=== PATIENT | male | born 1975 ===

== ENCOUNTER 2020-07-12 13:32 | Outpatient (REF) | payer OTHER, SELFPAY ==
[2020-07-12 15:33] LABS: Influenza A PCR NEGATIVE (Negative); Influenza B PCR NEGATIVE (Negative); Resp Syncy Virus RNA Qual PCR NEGATIVE (Negative); SARS COV2 PCR INHOUSE NEGATIVE (Negative)
== END 2020-07-12 13:33 | disposition home or self-care (01) ==
LOC: HO.LAB 13:32
PROVIDERS: Visit Provider Nurse Practitioner Family
DX: Z20.828 Contact with and (suspected) exposure to other viral communicable diseases (principal)
CPT/HCPCS: 0241U

== ENCOUNTER 2020-07-12 13:33 | Outpatient (REF) | payer OTHER, SELFPAY ==
--- NOTE | 2020-07-12 13:37 | XR_ITS ---
EXAMINATION: XR CHEST CLINICAL INFORMATION: Chest pain COMPARISON: 04/20/2020 TECHNIQUE: 2 views of the chest were obtained. FINDINGS: The lungs are well expanded. There is no focal consolidation, edema, or effusion. No pneumothorax. The cardiomediastinal silhouette is within normal limits. No acute osseous abnormality. XR/XR chest 2V IMPRESSION: Clear lungs.
== END 2020-07-12 13:34 | disposition home or self-care (01) ==
LOC: HO.HMGCX 13:33
PROVIDERS: PCP Nurse Practitioner Family; Visit Provider Nurse Practitioner Family
DX: R79.89 Other specified abnormal findings of blood chemistry (principal)
CPT/HCPCS: 71046

== ENCOUNTER 2020-07-20 08:41 | Outpatient (REF) | payer OTHER, SELFPAY ==
--- NOTE | 2020-07-20 08:47 | XR_ITS ---
EXAMINATION: XR BILATERAL FINGERS CLINICAL INFORMATION: Pain bilateral fingers/thumb. COMPARISON: None TECHNIQUE: 3 views each thumb. FINDINGS: RIGHT FINGERS: There is mild reduction in the PIP joint space with periarticular spurring right 1st digit. No fracture, dislocation, loose bodies or soft tissue swelling seen. Minimal loss of PIP and DIP joint space seen in 2nd through 4th digit. The soft tissues are normal. LEFT FINGERS: There is mild reduction in the PIP joint space 1st digit with periarticular minimal spurring. No bony erosive changes, loose bodies seen. There is loss of 1st carpometacarpal joint space with moderate periarticular spurring. Mild loss of PIP and DIP joint space 2nd through 5th digits is noted. XR/XR finger LT min 2V IMPRESSION: Degenerative arthritic changes PIP and DIP joints of all digits. There is periarticular spurring PIP joints 1st digits of both hands. No acute fracture or dislocation in either hand. No soft tissue swelling.
--- NOTE | 2020-07-20 08:47 | XR_ITS ---
EXAMINATION: XR BILATERAL FINGERS CLINICAL INFORMATION: Pain bilateral fingers/thumb. COMPARISON: None TECHNIQUE: 3 views each thumb. FINDINGS: RIGHT FINGERS: There is mild reduction in the PIP joint space with periarticular spurring right 1st digit. No fracture, dislocation, loose bodies or soft tissue swelling seen. Minimal loss of PIP and DIP joint space seen in 2nd through 4th digit. The soft tissues are normal. LEFT FINGERS: There is mild reduction in the PIP joint space 1st digit with periarticular minimal spurring. No bony erosive changes, loose bodies seen. There is loss of 1st carpometacarpal joint space with moderate periarticular spurring. Mild loss of PIP and DIP joint space 2nd through 5th digits is noted. XR/XR finger RT min 2V IMPRESSION: Degenerative arthritic changes PIP and DIP joints of all digits. There is periarticular spurring PIP joints 1st digits of both hands. No acute fracture or dislocation in either hand. No soft tissue swelling.
== END 2020-07-20 08:42 | disposition home or self-care (01) ==
LOC: HO.HMGCX 08:41
PROVIDERS: PCP Nurse Practitioner Family; Visit Provider Nurse Practitioner Family
DX: M79.644 Pain in right finger(s) (principal); M79.645 Pain in left finger(s)
CPT/HCPCS: 73140

== ENCOUNTER → 2020-11-24 15:09 | Outpatient (BNVA) | payer OTHER, SELFPAY | PROVIDERS: PCP Nurse Practitioner Family; Visit Provider Urology ==

== ENCOUNTER 2020-11-29 07:26 | Day surgery (SDC) | payer OTHER, SELFPAY ==
--- NOTE | 2020-11-26 13:30 | P.CONAN_ITS ---
Documented by User: Yesica Kirk 11/26/20 13:31 HPI - Anesthesia Eval Consult details Narrative: 45yo M for Circumcision PMFSH Active Problems Active Problems: All Active Problems (Updated 11/25/20 @ 09:17 by Valeriano Rodriguez MD) Genital warts (Acute) Penile lesion (Acute) Physical exam (Acute) Carpal tunnel syndrome (Acute) Osteoarthritis (Acute) Bilateral hand numbness (Acute) Bilateral thumb pain (Acute) Peritonsillar abscess determined by examination (Acute) Chest tightness (Acute) Past Medical History Medical History Bilateral hand numbness Dyslipidemia GERD (gastroesophageal reflux disease) Hx of gout Hypertension Osteoarthritis Sleep apnea Family History Family History Father No problems noted. Mother HTN (hypertension) Diabetes mellitus Maternal Grandmother Myocardial infarction Surgical History Surgical History History of appendectomy Hx of colonoscopy Social History Social History Alcohol intake: current Alcohol intake frequency: a few times a week Smoking Status: Former smoker Smoking Quit Date: 2019 Use of substances other than those prescribed or required for medical reasons: No Are you DNR?: No Advance Directives: No Advance Directives Information Provided: Yes Meds Allergies Allergy/AdvReac Type Severity Reaction Status Date / Time No Known Allergies Allergy Verified 11/29/20 08:22 Home Medications Medication Instructions Recorded Confirmed Last Taken Type albuterol sulfate 90 mcg/actuation 2 puff INHALATION Q6H PRN 09/22/20 09/22/20 Unknown History aerosol inhaler amlodipine 5 mg tablet 5 mg PO DAILY 09/22/20 09/22/20 Unknown History cetirizine 10 mg tablet 10 mg PO DAILY PRN 09/22/20 09/22/20 Unknown History Exam Exam Date and Time: November 26, 2020 1330 Assessment and Plan Assessment Anesthesia Assessment: Chart Reviewed Documented by User: Kely Moyer 11/29/20 09:23 [facility] Past Medical History Medical History Bilateral hand numbness Dyslipidemia GERD (gastroesophageal reflux disease) Hx of gout Hypertension Osteoarthritis Sleep apnea Family History Family History Father No problems noted. Mother HTN (hypertension) Diabetes mellitus Maternal Grandmother Myocardial infarction Surgical History Surgical History History of appendectomy Hx of colonoscopy Social History Social History Alcohol intake: current Alcohol intake frequency: a few times a week Smoking Status: Former smoker Smoking Quit Date: 2019 Use of substances other than those prescribed or required for medical reasons: No Are you DNR?: No Advance Directives: No Advance Directives Information Provided: Yes Meds Allergies Allergy/AdvReac Type Severity Reaction Status Date / Time No Known Allergies Allergy Verified 11/29/20 08:22 Home Medications Medication Instructions Recorded Confirmed Last Taken Type albuterol sulfate 90 mcg/actuation 2 puff INHALATION Q6H PRN 09/22/20 09/22/20 Unknown History aerosol inhaler amlodipine 5 mg tablet 5 mg PO DAILY 09/22/20 09/22/20 Unknown History cetirizine 10 mg tablet 10 mg PO DAILY PRN 09/22/20 09/22/20 Unknown History Exam Airway Mallampati Class: III (Full park large neck) TM Dist: >3cm Neck ROM: Limited Loose/Missing/Broken Teeth: No Heart: RRR Lungs: CTA Assessment and Plan Assessment Anesthesia Assessment: Anesthesia Plan Discussed and Chart Reviewed Final Anesthetic Review NPO: Yes ASA Class: III Final Preanesthetic Review: Meds/Allgs Chart Reviewed, Consent Obtained/Reviewed and Anes Risks/Benef Reviewed Patient Risk: Intermediate Procedure Risk: Low Anesthetic Plan Anesthetic Plan: MAC: Disposition: Standard PACU
[2020-11-29 08:24] VITALS: BP 132/86; PULSE 90; RESP 18; TEMP 36.6; O2SAT 93; BMI 48.6
[2020-11-29] MEDS: Lactated Ringers 1,000 ML 100 ML IVCONT (08:45)
--- NOTE | 2020-11-29 09:16 | MHC.SHP ---
Pre-Procedural Eval Section A The patient is an INPATIENT: No Changes since office visit: No Cold of Flu in the past 2 weeks, No New Medical Problems, No Changes in Medication and No Patient answered all questions The History & Physical has been completed within 30 days and I have reviewed it.: Yes Section B Chief Complaint: anogenital warts Allergies: Allergies Allergy/AdvReac Type Severity Reaction Status Date / Time No Known Allergies Allergy Verified 11/29/20 08:22 Plan Diagnosis/Plan: Unchanged (circumcision) I have reviewed the history and physical and performed a pertinent physical examination on my patient. No changes have occurred unless specified.
[2020-11-29 10:40] VITALS: BP 125/66; PULSE 75; RESP 18; TEMP 36.4; O2SAT 100
[2020-11-29 10:45] VITALS: BP 123/73; PULSE 71; RESP 18; O2SAT 98
[2020-11-29 10:50] VITALS: BP 121/70; PULSE 71; RESP 18; O2SAT 97
[2020-11-29 10:55] VITALS: BP 107/80; PULSE 74; RESP 18; O2SAT 98
--- NOTE | 2020-11-29 10:58 | W.PM.OPN ---
Operative Note Operative Note Date of Service: 11/29/20 Narrative: PreOperative Diagnosis: Genital warts and phimosis Post Operative Diagnosis: Genital warts and phimosis Procedure: Circumcision Surgeon: Dr Valeriano Rodriguez Anesthesia: Sedation with local anesthetic Indications for procedure: Recurring genital warts with inability to withdrawal foreskin of penile glans. Risks and benefits including bleeding, scarring, need for revision surgery been discussed. Procedure: After informed consent was verified the patient was brought to the operating room and placed in a supine position. Anesthesia was administered per protocol - sedation. The patient was prepped and draped sterile fashion. Safety pause time-out was performed. Antibiotics have been given. The penis was examined and proximal incision marked that lay just proximal to the resting position of the penile sulcus. This was followed around the circumference of the penis. A penile ring block was performed using 1% lidocaine with no epinephrine. Approximately 20 cc. The proximal incision was developed with sharp blade running circumferentially around the penis. The skin was to give a 1 cm separation between the foreskin in the remaining penile shaft skin. The foreskin was withdrawn and the penile glans exposed. A a distal incision was made approximately 5 mm proximal to the penile sulcus. At the area of the frenulum care was taken to empty the penile frenulum intact. Using clamps the dorsal skin was elevated. Using Metzenbaum scissors the avascular plane was entered and proximal and distal incision were joined. The bridging skin was elevated and clamped. It was then divided using Bovie. The sleeve of tissue was then removed circumferentially around the penis using cautery in order to minimize bleeding. The shaft was then examined in any bleeding areas were controlled. More local anesthetic was injected into the plane beneath avascular plane to help with postprocedure pain management. The skin edges after they were appropriately examined low reapposed. A 3-0 chromic suture was placed at 12:00 o'clock and 06:00 o'clock positions. Interrupted 3-0 was then placed the 09:00 o'clock and 3 o'clock position. Each quadrant was then filled with 3 sutures using 4-0 chromic. At the completion of the procedure there was adequate hemostasis. The incision was washed and dried. Antibiotic cream was applied to the incision. A Terri wrap was applied followed by a Coban dressing. Xeroform gauze had been used to cover antibiotic ointment. He tolerated the procedure well and was extubated in the room and transferred in stable condition to the recovery area. Pathology: Foreskin Drains: none
[2020-11-29 11:15] VITALS: BP 127/78; PULSE 76; RESP 18; O2SAT 97
--- NOTE | 2020-11-29 11:23 | PC.NURSE ---
1118 IV DC #20 TIP INTACT PRESSURE AND DRESSING TO R HAND IV SITE
== END 2020-11-29 11:45 | disposition home or self-care (01) ==
PROVIDERS: PCP Nurse Practitioner Family; Visit Provider Urology
PROC: (CPT 54161; principal; 2020-11-29 09:10)
DX: A63.0 Anogenital (venereal) warts (principal); N47.1 Phimosis; I10 Essential (primary) hypertension; Z87.891 Personal history of nicotine dependence
CPT/HCPCS: 54161; 88304; J0690; J2250; J3010

== ENCOUNTER 2020-12-03 09:51 | Outpatient (REF) | payer OTHER, SELFPAY ==
[2020-12-03 12:24] LABS: Alanine Aminotransferase 43 U/L (0-40); Albumin Level 4.3 g/dL (3.5-5.0); Alkaline Phosphatase 75 U/L (39-117); Anion Gap 14 (12-20); Aspartate Amino Transferase 24 U/L (5-37); Bilirubin Total 0.9 mg/dL (0.0-1.0); Blood Urea Nitrogen 14 mg/dL (9-16); Calcium 9.6 mg/dL (8.4-10.2); Carbon Dioxide 27 mmol/L (22-29); Chloride 103 mmol/L (96-108); Cholesterol 180 mg/dL; Estimated Glomerular Filt Rate > 60; Glucose Fasting 105 mg/dL (60-99); HDL Cholesterol 48 mg/dL; LDL Cholesterol Calculated 113 mg/dl; Potassium 4.3 mmol/L (3.3-5.1); Sodium 140 mmol/L (135-145); Total Protein 7.7 g/dL (6.5-8.0); Triglycerides 98 mg/dL
== END 2020-12-03 09:52 | disposition home or self-care (01) ==
LOC: HO.HMGCLDS 09:51
PROVIDERS: PCP Nurse Practitioner Family; Visit Provider Nurse Practitioner Family
DX: Z00.00 Encounter for general adult medical examination without abnormal findings (principal)
CPT/HCPCS: 36415; 80053; 80061; 84443

== ENCOUNTER → 2021-01-04 15:17 | Outpatient (BNVA) | payer OTHER, SELFPAY | PROVIDERS: PCP Nurse Practitioner Family; Visit Provider Urology ==

== ENCOUNTER 2021-06-13 11:40 | Outpatient (REF) | payer OTHER, SELFPAY ==
[2021-06-13 13:02] LABS: Influenza A PCR NEGATIVE (Negative); Influenza B PCR NEGATIVE (Negative); Resp Syncy Virus RNA Qual PCR NEGATIVE (Negative); SARS COV2 PCR INHOUSE POSITIVE (Negative)
== END 2021-06-13 11:41 | disposition home or self-care (01) ==
LOC: HO.LNP 11:40
PROVIDERS: Visit Provider Physician Assistant Medical
DX: J06.9 Acute upper respiratory infection, unspecified (principal); Z20.822 Contact with and (suspected) exposure to COVID-19
CPT/HCPCS: 0241U

== ENCOUNTER 2021-06-14 16:49 | Outpatient (REF) | payer OTHER, SELFPAY | END 2021-06-14 16:50 | disposition home or self-care (01) | LOC: HO.LNP 16:49 | PROVIDERS: Visit Provider Physician Assistant Medical | DX: J06.9 Acute upper respiratory infection, unspecified (principal) | CPT/HCPCS: 87071 ==

== ENCOUNTER 2022-09-22 07:15 | Outpatient (REF) | payer OTHER, SELFPAY ==
--- NOTE | ~2022-09-22 | XR_ITS ---
EXAMINATION: XR LUMBOSACRAL SPINE CLINICAL INFORMATION: Lower back pain. COMPARISON: Report of lumbar spine radiographs dated 03/23/2006. TECHNIQUE: AP and lateral views of the lumbar spine and lateral view of the lumbosacral junction. FINDINGS: There are mild T12 and L1 anterior wedge compression fractures. Vertebral body heights are otherwise unremarkable. At L4-L5, there is a 4 mm anterolisthesis. There is moderate posterior disc space narrowing at L5-S1. No acute fracture or spondylolisthesis is seen. There is multi-level spondylosis, particularly marked at T11-T12 through L1-L2 and at L5-S1. There is multi-level facet arthropathy, most pronounced at L4-L5 and L5-S1. The paravertebral soft tissues are unremarkable. XR/XR lumbar spine 2-3V IMPRESSION: 1. There is mild degenerative disc disease at L4-L5, and moderately severe degenerative disc disease is seen at L5-S1. 2. There is facet arthropathy, most pronounced at L4-L5 and L5-S1. 3. There is multi-level thoracolumbar spondylosis.
[2022-09-22 11:24] LABS: Appearance Urine Turbid; Color Urine Dark Yellow; Glucose Urine UA Negative (Negative); Leukocyte Esterase Urine Negative (Negative); Nitrite Urine Negative (Negative); PH 5.5 (5.0-9.0); Specific Gravity - Urine >= 1.030 (1.005-1.025); Urine Blood Negative (Negative); Urine Ketones Negative (Negative); Urine Protein Negative (Neg-Trace)
[2022-09-22 11:26] LABS: MANUAL DIFF FLAG NO
[2022-09-22 11:50] LABS: Basophils Absolute Auto 0.1 X10*3/uL (0.0-0.2); Basophils Percent Auto 0.9 % (0-2); Eosinophils Absolute Auto 0.2 X10*3/uL (0.0-0.4); Eosinophils Percent Auto 2.6 % (0-4); Hematocrit 45.3 % (42.0-52.0); Hemoglobin 15.8 g/dl (14.0-18.0); Imm Gran Abs Auto 0.05 X10*3/uL (0.00-0.03); Imm Gran Pct Auto 0.7 % (0.0-0.4); Lymphocytes Absolute Auto 2.9 X10*3/uL (1.2-4.9); Lymphocytes Percent Auto 37.7 % (20-40); Mean Corpuscular HGB Conc 34.9 g/dl (31.0-36.0); Mean Corpuscular Hemoglobin 30.7 pg (27.0-33.0); Mean Corpuscular Volume 88.1 fL (80.0-98.0); Mean Platelet Volume 11.1 fL (9.4-12.4); Monocytes Absolute Auto 0.5 X10*3/uL (0.1-1.2); Monocytes Percent Auto 6.4 % (2-11); Neutrophils Absolute Auto 3.9 x10*3/uL (2.0-8.3); Neutrophils Percent Auto 51.7 % (45-73); Platelet Count 220 X10*3/uL (160-400); Red Blood Count 5.14 X10*6/uL (4.60-5.80); White Blood Count 7.6 X10*3/uL (4.8-10.8)
[2022-09-22 12:37] LABS: Alanine Aminotransferase 53 U/L (0-40); Alkaline Phosphatase 64 U/L (39-117); Anion Gap 13 (12-20); Aspartate Amino Transferase 34 U/L (5-37); Blood Urea Nitrogen 13 mg/dL (9-16); Calcium 9.3 mg/dL (8.4-10.2); Carbon Dioxide 27 mmol/L (22-29); Chloride 104 mmol/L (96-108); Cholesterol 166 mg/dL; Estimated Glomerular Filt Rate > 60; Glucose Fasting 118 mg/dL (60-99); HDL Cholesterol 50 mg/dL; LDL Cholesterol Calculated 91 mg/dl; Potassium 4.2 mmol/L (3.3-5.1); Sodium 140 mmol/L (135-145); Total Protein 7.1 g/dL (6.5-8.0); Triglycerides 126 mg/dL
== END 2022-09-22 07:16 | disposition home or self-care (01) ==
LOC: HO.HMGCX 07:15
PROVIDERS: PCP Nurse Practitioner Family; Visit Provider Nurse Practitioner Family
DX: M54.50 Low back pain, unspecified (principal); E66.01 Morbid (severe) obesity due to excess calories
CPT/HCPCS: 36415; 72100; 80053; 80061; 81003; 84443; 85025

== ENCOUNTER 2022-10-03 08:57 | Outpatient (REF) | payer OTHER, SELFPAY ==
--- NOTE | ~2022-10-03 | US_ITS ---
EXAMINATION: US ABDOMEN COMPLETE CLINICAL INFORMATION: Abnormal levels of other serum enzymes. COMPARISON: None TECHNIQUE: Real-time imaging of the abdominal viscera. Technically limited study secondary to body habitus. FINDINGS: PANCREAS: Normal. ABDOMINAL AORTA: Grossly normal proximally only visualized INFERIOR VENA CAVA: Visualized portions are normal. LIVER: The liver is normal in size. The liver contour is normal. Diffuse increased echogenicity. No focal hepatic lesion. There is no intrahepatic biliary duct dilatation seen. GALLBLADDER: No acute inflammatory changes The gallbladder is physiologically distended. Multiple mobile gallstones are present. No evidence of gallbladder wall thickening or pericholecystic fluid. COMMON BILE DUCT: Normal in caliber measuring 0.4 cm in diameter. RIGHT KIDNEY: Normal. No hydronephrosis. No renal calculi or focal parenchymal lesions. The kidney measures 12.6 cm in maximum dimension. LEFT KIDNEY: Normal. No hydronephrosis. No renal calculi or focal parenchymal lesions. The kidney measures 12.2 cm in maximum dimension. SPLEEN: Normal. The spleen measures 13.2 cm in maximum dimension. FREE FLUID: None. US/US abdomen complete IMPRESSION: Limited imaging due to patient's body habitus. Gallstones without acute inflammatory changes.
== END 2022-10-03 08:58 | disposition home or self-care (01) ==
LOC: HO.HMGCX 08:57
PROVIDERS: PCP Nurse Practitioner Family; Visit Provider Nurse Practitioner Family
DX: R74.8 Abnormal levels of other serum enzymes (principal)
CPT/HCPCS: 76700

== ENCOUNTER → 2023-01-03 09:00 | Outpatient (BNVA) | payer OTHER, SELFPAY | PROVIDERS: PCP Nurse Practitioner Family; Visit Provider Internal Medicine | DX: Z01.818 Encounter for other preprocedural examination (principal); E66.01 Morbid (severe) obesity due to excess calories; Z68.43 Body mass index [BMI] 50.0-59.9, adult; Z86.010 Personal history of colon polyps | CPT/HCPCS: 99202 ==

== ENCOUNTER 2023-04-30 09:15 | Outpatient (AMB) | payer OTHER, SELFPAY ==
[2023-04-30 09:25] VITALS: BP 140/82; PULSE 78; TEMP 36.6; O2SAT 97; BMI 53.8
--- NOTE | 2023-04-30 09:25 | AM.OFFWIN_ITS ---
Intake Vital Signs 04/30/23 09:25 Height 5 ft 8 in Weight 160.628 kg BMI 53.8 BP 140/82 H Blood Pressure Location Lt brachial Position Sitting Pulse 78 Pulse Source Pulse Oximeter Temp 97.9 F Temp Source Temporal Artery Scan Pulse Oximetry (%) 97 Intake Visit Reasons: EP Rib/Back pain Cough [phone] Intake Note: pt is here for c/o rib and back pain, chest congestion, cough Patient Tobacco Use Status: Former Tobacco user Allergies No Known Allergies Allergy (Verified 04/30/23 09:32) Do you need a note to return to daycare/school/sports/work: Yes HPI HPI Comments History of Present Illness Details 0957 48 yo M DDD, obesity, present w/ CP , sh ortness of breath times a few days. Patient reports chest pain is pleuritic in nature, worse with lying flat better with leaning forward, he has never had pain like this before. He feels like he can not take a full deep breath. When he tries to take a deep breath sometimes he coughs. Patient denies long travel, smoking, hormone replacement therapy, malignancy, history of DVT or PE. No fevers or chills. Physical examination benign. Vital signs stable. History and physical exam are concerning for possible pericarditis, viral illness versus PE. Patient without significant risk factors however history and physical exam slightly suspicious. Unlikely dissection, ACS. Plan at this time expect called into [facility] emergency department triage [facility] Medical History DDD (degenerative disc disease), lumbar Dyslipidemia Sleep apnea GERD (gastroesophageal reflux disease) Hypertension Hx of gout Osteoarthritis Bilateral hand numbness Surgical History History of esophagogastroduodenoscopy (EGD) Hx of colonoscopy History of appendectomy Family History Father No problems noted. Mother HTN (hypertension) Diabetes mellitus Maternal Grandmother Myocardial infarction Social History Household Members: Significant Other and Children Household Members Other:: Mother Housing: House Alcohol intake: current Alcohol intake frequency: a few times a week Patient Tobacco Use Status: Former Tobacco user Current occupational status: unemployed Cognitive needs: No Hearing needs: No Vision needs: No Review of Systems Const Details: Constitutional : No Weight loss, No Fever, No Chills, No Fatigue, No Malaise ENT/Mouth : No sore throat, No Rhinorrhea Eyes: No Eye Pain, No Swelling, No Redness Cardiovascular : No Chest Pain, No SOB, No Dyspnea on Exertion, No Orthopnea, No Edema, No Palpitations Respiratory : No Cough, No Sputum, No Wheezing Gastrointestinal : No Nausea, No Vomiting, No Diarrhea, No Constipation, No abdominal Pain, No Hematochezia, No Melena Genitourinary : No Dysuria, No Urinary Frequency, No Hematuria, Musculoskeletal : No joint pain, No Myalgias, No Joint Swelling Skin : No Skin Lesions, No rash Neuro : No Weakness, No Numbness, No Dizziness, No Headache Psych : No Anxiety/Panic, No Depression All other systems reviewed and are negative All systems reviewed & are unremarkable except as noted in HPI and below Physical Exam Vital Signs: Last Vital Signs Temp 97.9 F 04/30/23 09:25 Pulse 78 04/30/23 09:25 BP 140/82 H 04/30/23 09:25 Pulse Ox 97 04/30/23 09:25 BMI result Body Mass Index 53.8 vss Appearance: Alert.? Oriented X3.? No acute distress.? Head: Normocephalic, atraumatic, no step-offs or deformities Eyes: Pupils equal, round and reactive to light.? ENT: Pharynx normal.? Neck: Normal inspection.? Neck supple.? CVS: Normal heart rate and rhythm.? Pulses normal.? Respiratory: No respiratory distress.? Breath sounds normal.? Abdomen: Soft and nontender.? Skin: Skin warm and dry.? Normal skin color.? Normal skin turgor.? Extremities: No lower extremity edema.? No calf ttp. 5/5 strength to bilateral upper and lower extremities Neuro: Oriented X 3.? No motor deficit.? No sensory deficit. CN 2-12 intact Assessment & Plan Assessment & Plan (1) Cough: Code(s): R05.9 - Cough, unspecified Plan Take your medications as prescribed. If you were prescribed antibiotics today, it is important that you take your medication to their entirety, do not skip any doses, do not finish them early. Follow-up with your primary care provider this week. Return to the emergency department with new or worsening symptoms. Such as fevers, chills, chest pain, shortness of breath, nausea, vomiting, dizziness, headache, vision changes, lethargy In case of emergency call 911 Orders: Orders SARS-CoV2/FLU/RSV Today R05.9 - Cough, unspecified XR chest 2V Today R05.9 - Cough, unspecified Medications: New albuterol sulfate 90 mcg/actuation 2 puffs inhalation Q6H PRN 6.7 grams 0RF shortness of breath or wheezing doxycycline hyclate 100 mg PO BID 7 days 14 caps 0RF prednisone 40 mg (2 x 20 mg) PO DAILY 5 days 10 tabs 0RF Coding Level of Care Code Est Pt Level 3 (96171) Diagnoses Cough R05.9
== END 2023-04-30 10:34 | disposition home or self-care (01) ==
PROVIDERS: PCP Nurse Practitioner Family; Visit Provider Physician Assistant
DX: R05.9 Cough, unspecified (principal)
CPT/HCPCS: 99213

== ENCOUNTER 2023-04-30 10:32 | Emergency (ER) | payer OTHER, SELFPAY ==
--- NOTE | ~2023-04-30 | XR_ITS ---
EXAMINATION: XR CHEST CLINICAL INFORMATION: Pain COMPARISON: 2019 TECHNIQUE: Frontal view of the chest was obtained. FINDINGS: No significant abnormality is noted involving the heart, lungs, mediastinum, bony thorax or soft tissues. XR/XR chest 1V IMPRESSION: No radiographic evidence of acute infiltrates or failure.
--- NOTE | 2023-04-30 10:36 | ECG_ITS ---
Test Reason : chest pain Blood Pressure : / mmHG Vent. Rate : 073 BPM Atrial Rate : 073 BPM P-R Int : 180 ms QRS Dur : 096 ms QT Int : 396 ms P-R-T Axes : 041 012 042 degrees QTc Int : 436 ms Sinus rhythm with Premature supraventricular complexes Otherwise normal ECG When compared with ECG of 20-APR-2020 11:04, Premature supraventricular complexes are now Present Referred By: Generic ED Physician Electronically Signed By:MONY SAPP
[2023-04-30 10:42] VITALS: BP 151/82; PULSE 73; RESP 17; TEMP 36.8; O2SAT 98; BMI 55.5
[2023-04-30 11:59] LABS: MANUAL DIFF FLAG NO
--- NOTE | 2023-04-30 12:04 | ED.GENADULT ---
HPI - General Adult General Chief complaint: General Medical Stated complaint: Chest pain sent from urgent care Time Seen by Provider: 04/30/23 12:03 Related Data Home Medications Medication Instructions Recorded Confirmed amlodipine 5 mg tablet 5 mg PO DAILY 09/22/20 11/14/22 cholecalciferol (vitamin D3) 1,250 1,250 mcg PO QWEEK 11/14/22 11/14/22 mcg (50,000 unit) capsule gabapentin 300 mg capsule 300 mg PO TID 01/03/23 Previous Rx's Medication Instructions Recorded omeprazole 40 mg capsule,delayed 40 mg PO DAILY #90 caps 10/17/22 release losartan 100 mg tablet 100 mg PO DAILY 90 days #90 tabs 12/17/22 colchicine (gout) 0.6 mg tablet 0.6 mg PO BID #24 tabs 12/28/22 pravastatin 40 mg tablet 40 mg PO DAILY #90 tabs 03/01/23 hydrochlorothiazide 12.5 mg tablet 12.5 mg PO QAM #90 tabs 04/27/23 albuterol sulfate 90 mcg/actuation 2 puff inhalation Q6H PRN 04/30/23 aerosol inhaler shortness of breath or wheezing #6.7 grams doxycycline hyclate 100 mg capsule 100 mg PO BID 7 days #14 caps 04/30/23 prednisone 20 mg tablet 40 mg (2 x 20 mg) PO DAILY 5 days 04/30/23 #10 tabs Allergies Allergy/AdvReac Type Severity Reaction Status Date / Time No Known Allergies Allergy Verified 04/30/23 09:32 [facility] Past Medical History Medical History DDD (degenerative disc disease), lumbar Dyslipidemia Sleep apnea GERD (gastroesophageal reflux disease) Hypertension Hx of gout Osteoarthritis Bilateral hand numbness Surgical History History of esophagogastroduodenoscopy (EGD) Hx of colonoscopy History of appendectomy Family History Family History Father No problems noted. Mother HTN (hypertension) Diabetes mellitus Maternal Grandmother Myocardial infarction Social History Social History Household Members: Significant Other and Children Household Members Other:: Mother Housing: House Alcohol intake: current Alcohol intake frequency: a few times a week Patient Tobacco Use Status: Former Tobacco user Advance Directives: No Advance Directives Information Provided: Yes Current occupational status: unemployed Cognitive needs: No Hearing needs: No Vision needs: No Physical Exam ED Vital Signs: Vital Signs - 24 hr 04/30/23 10:42 Temperature 98.2 F Pulse Rate 73 Respiratory Rate 17 Blood Pressure 151/82 H Pulse Oximetry 98 Oxygen Delivery Method Room Air BMI result Body Mass Index 55.5 Medical Decision Making Lab Data 04/30/23 11:55 04/30/23 11:55 Discharge Plan Discharge Prescriptions: No Action omeprazole 40 mg capsule,delayed release(DR/EC) 40 mg PO DAILY Qty: 90 1RF losartan 100 mg tablet 100 mg PO DAILY 90 Days Qty: 90 1RF colchicine (gout) 0.6 mg tablet 0.6 mg PO BID Qty: 24 0RF Rx Instructions: Take 1.2 mg for the 1st dose, then take 0.6 mg 1 hour after your 1st dose, and 0.6 mg every 12 hours for the next 10 days. pravastatin 40 mg tablet 40 mg PO DAILY Qty: 90 1RF hydrochlorothiazide 12.5 mg tablet 12.5 mg PO QAM Qty: 90 1RF amlodipine 5 mg tablet 5 mg PO DAILY doxycycline hyclate 100 mg capsule 100 mg PO BID 7 Days Qty: 14 0RF albuterol sulfate 90 mcg/actuation HFA aerosol inhaler 2 puff inhalation Q6H PRN (Reason: shortness of breath or wheezing) Qty: 6.7 0RF prednisone 20 mg tablet 40 mg PO DAILY 5 Days Qty: 10 0RF cholecalciferol (vitamin D3) 1,250 mcg (50,000 unit) capsule 1,250 mcg PO QWEEK gabapentin 300 mg capsule 300 mg PO TID
[2023-04-30 12:07] LABS: Basophils Absolute Auto 0.1 X10*3/uL (0.0-0.2); Basophils Percent Auto 0.9 % (0-2); Eosinophils Absolute Auto 0.2 X10*3/uL (0.0-0.4); Eosinophils Percent Auto 2.3 % (0-4); Hematocrit 44.8 % (42.0-52.0); Hemoglobin 15.4 g/dl (14.0-18.0); Imm Gran Abs Auto 0.03 X10*3/uL (0.00-0.03); Imm Gran Pct Auto 0.5 % (0.0-0.4); Lymphocytes Absolute Auto 2.3 X10*3/uL (1.2-4.9); Lymphocytes Percent Auto 35.7 % (20-40); Mean Corpuscular HGB Conc 34.4 g/dl (31.0-36.0); Mean Corpuscular Hemoglobin 31.1 pg (27.0-33.0); Mean Corpuscular Volume 90.5 fL (80.0-98.0); Mean Platelet Volume 10.7 fL (9.4-12.4); Monocytes Absolute Auto 0.5 X10*3/uL (0.1-1.2); Neutrophils Absolute Auto 3.5 x10*3/uL (2.0-8.3); Neutrophils Percent Auto 53.6 % (45-73); Platelet Count 214 X10*3/uL (160-400); Red Blood Count 4.95 X10*6/uL (4.60-5.80); Red Cell Distribution Width 11.8 % (11.0-16.0); White Blood Count 6.5 X10*3/uL (4.8-10.8)
[2023-04-30 12:08] LABS: Prothrombin Time 11.9 SEC (11.1-13.3)
[2023-04-30 12:10] LABS: Partial Thromboplastin Time 36.2 SEC (26.0-36.4)
--- NOTE | 2023-04-30 12:11 | ED_ITS ---
HPI - General Adult General Chief complaint: General Medical Stated complaint: Chest pain sent from urgent care Time Seen by Provider: 04/30/23 12:03 Source: patient, EMS, RN notes reviewed and old records reviewed Mode of arrival: EMS History of Present Illness HPI narrative: 48-year-old male with a past medical history of obesity, degenerative disc disease, gout, presenting to the ED via EMS from urgent care complaining of substernal chest pain and shortness of breath x 1 week. Admits chest pain worse with deep breathing, movement, and lying flat. States when takes deep breath causes him to cough. She also reports rhinorrhea. Denies fever/chills, nausea/vomiting, abdominal pain, pedal edema, calf tenderness, history of clots, current cigarette smoking Onset (ago): day(s) Related Data Home Medications Medication Instructions Recorded Confirmed amlodipine 5 mg tablet 5 mg PO DAILY 09/22/20 11/14/22 cholecalciferol (vitamin D3) 1,250 1,250 mcg PO QWEEK 11/14/22 11/14/22 mcg (50,000 unit) capsule gabapentin 300 mg capsule 300 mg PO TID 01/03/23 Previous Rx's Medication Instructions Recorded omeprazole 40 mg capsule,delayed 40 mg PO DAILY #90 caps 10/17/22 release losartan 100 mg tablet 100 mg PO DAILY 90 days #90 tabs 12/17/22 colchicine (gout) 0.6 mg tablet 0.6 mg PO BID #24 tabs 12/28/22 pravastatin 40 mg tablet 40 mg PO DAILY #90 tabs 03/01/23 hydrochlorothiazide 12.5 mg tablet 12.5 mg PO QAM #90 tabs 04/27/23 albuterol sulfate 90 mcg/actuation 2 puff inhalation Q6H PRN 04/30/23 aerosol inhaler shortness of breath or wheezing #6.7 grams doxycycline hyclate 100 mg capsule 100 mg PO BID 7 days #14 caps 04/30/23 prednisone 20 mg tablet 40 mg (2 x 20 mg) PO DAILY 5 days 04/30/23 #10 tabs Allergies Allergy/AdvReac Type Severity Reaction Status Date / Time No Known Allergies Allergy Verified 04/30/23 09:32 Review of Systems 2 Review of Systems: Constitutional: No Fever, No Chills, No Fatigue, No Malaise ENT/Mouth: No Hearing loss, No Ear Pain, No Nasal Congestion, No sore throat, No Rhinorrhea, No Swallowing Difficulty Eyes: No Eye Pain, No Swelling, No Redness, No Vision Changes Cardiovascular: + Chest Pain, + SOB, No Dyspnea on Exertion, No Orthopnea, No Edema, No Palpitations Respiratory: No Cough, No Sputum, No Dyspnea Gastrointestinal: No Nausea, No Vomiting, No Diarrhea, No Constipation, No Abdominal pain Genitourinary: No irregular bleeding, No Dysuria, No Urinary Frequency, No Hematuria, No Flank Pain Musculoskeletal: No joint pain, No Myalgias, No Joint Swelling Skin: No Skin Lesions, No rash Neuro: No Weakness, No Dizziness, No Headache Yes all other systems are reviewed and are negative Constitutional: Constitutional: Reports as per [facility] Past Medical History Attestation statement: The following information was validated with the patient. Source: old records reviewed Medical History DDD (degenerative disc disease), lumbar Dyslipidemia Sleep apnea GERD (gastroesophageal reflux disease) Hypertension Hx of gout Osteoarthritis Bilateral hand numbness Surgical History History of esophagogastroduodenoscopy (EGD) Hx of colonoscopy History of appendectomy Family History Family History Father No problems noted. Mother HTN (hypertension) Diabetes mellitus Maternal Grandmother Myocardial infarction Social History Social History Household Members: Significant Other and Children Household Members Other:: Mother Housing: House Alcohol intake: current Alcohol intake frequency: a few times a week Alcohol type: hard liquor Patient Tobacco Use Status: Former Tobacco user Smoked in Last 30 Days: No Use of substances other than those prescribed or required for medical reasons: No Advance Directives: No Advance Directives Information Provided: Yes Current occupational status: unemployed Cognitive needs: No Hearing needs: No Vision needs: No Physical Exam ED Vital Signs: Vital Signs - 24 hr 04/30/23 10:42 04/30/23 14:00 Temperature 98.2 F 98.1 F Pulse Rate 73 76 Respiratory Rate 17 18 Blood Pressure 151/82 H 153/78 H Pulse Oximetry 98 98 Oxygen Delivery Method Room Air Room Air BMI result Body Mass Index 55.5 Const General: cooperative, healthy appearing and no acute distress Orientation/consciousness: patient oriented x3 Limitations: no limitations HENMT Head: Yes normal to inspection and Yes atraumatic Ears: hearing grossly normal bilaterally General nose exam: Normal external nose present Face and sinus: Yes normal facial exam Eyes General: appearance normal, both eyes and all related structures EOM: EOMs intact bilaterally Neck Neck: Yes normal visual inspection and Yes no meningeal signs Chest Chest palpation & inspection: normal inspection of the chest, no crepitus and no tenderness Resp Effort & Inspection: normal respiratory effort and no respiratory distress Auscultation: clear to auscultation bilaterally, no crackles, no rales and no wheezes Cardio Rate: regular rate Heart sounds: S1 normal heart sound present and S2 normal heart sound present GI Inspection: Yes normal to inspection Palpation (GI): Soft to palpation, nontender, no guarding and not rigid General: Yes no CVA tenderness Back/Spine/Pelvis Back: no CVA tenderness Skin Rashes: no rashes Wounds: no wounds Neuro General: patient oriented x3, tone normal and no meningeal signs Cranial nerves: Yes CN's II-XII intact bilaterally Gait exam (Neuro): Normal gait present Extrem General: Yes normal to inspection, Yes no pedal edema and Yes no calf tenderness Course Course Course Narrative: -1410--no leukocytosis. H&H stable. D-dimer WNL, PE unlikely -initial troponin 16.6 > will obtain 3 hour repeat. COVID and influenza negative XR chest 1V IMPRESSION: No radiographic evidence of acute infiltrates or failure. -1548--repeat troponin without rise, [place] unlikely. COVID and influenza negative Results discussed with patient including worrisome signs and symptoms and strict return precautions, and when to return to the emergency department. They verbalized understanding and feel safe for discharge at this time. Medications Administered Discontinued Medications Generic Name Dose Route Start Last Admin Trade Name Freq PRN Reason Stop Dose Admin Ketorolac Tromethamine 30 mg 04/30/23 12:17 04/30/23 12:35 Ketorolac Tromethamine 30 Mg/Ml Vial IM 04/30/23 12:18 30 mg ONCE ONE Administration Medical Decision Making Medical Decision Making [facility] Narrative: 48-year-old male with a past medical history of obesity, degenerative disc disease, gout, presenting to the ED via EMS from urgent care complaining of substernal chest pain and shortness of breath x1 week. On exam vital signs stable, NAD, nontoxic appearing, pain is pleuritic in nature, physical exam as above, pain not reproducible, lungs CTA, no pedal edema or calf tenderness. Concern for pneumonia vs bronchitis vs viral syndrome vs PE or pericarditis/myocarditis. Lower suspicion for DVT or dissection Plan: EKG, labs, CXR, viral testing Please refer to course for remaining clinical decision making, interpretation of labs/imaging results, and discussions with consultants and/or family members. Differential Diagnosis Differential Diagnoses: The differential diagnosis associated with the presentation includes As above Admission/Observation Consideration of admission/observation: Escalation of care including admission/observation considered Lab Data MDM Lab Attestation statement: I reviewed the patient's lab results. 04/30/23 11:55 04/30/23 11:55 Labs: Lab Results 04/30/23 04/30/23 04/30/23 Range/Units 11:55 11:55 12:23 WBC 6.5 (4.8-10.8) X10*3/uL RBC 4.95 (4.60-5.80) X10*6/uL Hgb 15.4 (14.0-18.0) g/dl Hct 44.8 (42.0-52.0) % MCV 90.5 (80.0-98.0) fL MCH 31.1 (27.0-33.0) pg MCHC 34.4 (31.0-36.0) g/dl RDW 11.8 (11.0-16.0) % Plt Count 214 (160-400) X10*3/uL MPV 10.7 (9.4-12.4) fL Immature Gran % (Auto) 0.5 H (0.0-0.4) % Neut % (Auto) 53.6 (45-73) % Lymph % (Auto) 35.7 (20-40) % Sevier % (Auto) 7.0 (2-11) % Eos % (Auto) 2.3 (0-4) % Baso % (Auto) 0.9 (0-2) % Lymph # (Auto) 2.3 (1.2-4.9) X10*3/uL Sevier # (Auto) 0.5 (0.1-1.2) X10*3/uL Eos # (Auto) 0.2 (0.0-0.4) X10*3/uL Baso # (Auto) 0.1 (0.0-0.2) X10*3/uL Abs Immat Gran (auto) 0.03 (0.00-0.03) X10*3/uL Absolute Neuts (auto) 3.5 (2.0-8.3) x10*3/uL Absolute Nucleated RBC 0.000 (0.0-0.012) X10*3/uL Nucleated RBC % (auto) 0.0 (0.0-0.2) /100WBC PT 11.9 (11.1-13.3) SEC INR 1.0 (0.9-1.1) APTT 36.2 (26.0-36.4) SEC D-Dimer High Sensitivty < 150 Cancelled NG/ML Sodium 143 (135-145) mmol/L Potassium 4.4 (3.3-5.1) mmol/L Chloride 108 (96-108) mmol/L Carbon Dioxide 28 (22-29) mmol/L Anion Gap 11 L (12-20) BUN 12 (9-16) mg/dL Creatinine 0.85 (0.5-1.4) mg/dL Estim Creat Clear Calc 158.0 Estimated GFR > 60 Random Glucose 102 (60-115) mg/dL Calcium 9.9 D (8.4-10.2) mg/dL Total Bilirubin 0.5 (0.0-1.0) mg/dL Direct Bilirubin 0.2 (0.0-0.5) mg/dL AST 19 (5-37) U/L ALT 32 (0-40) U/L Alkaline Phosphatase 60 (39-117) U/L Troponin I High Sens 16.6 (<3.5-35.0) ng/L B-Natriuretic Peptide 14 (<100) pg/mL Total Protein 7.4 (6.5-8.0) g/dL Albumin 3.9 (3.5-5.0) g/dL COVID-19 (ZUHAIR) Negative (Negative) COVID-19 Clin Com See Note Influenza Type A (KENDRA) Negative (Negative) Influenza Type B (KENDRA) Negative (Negative) Influenza A & B Note See Note 04/30/23 Range/Units 15:16 WBC (4.8-10.8) X10*3/uL RBC (4.60-5.80) X10*6/uL Hgb (14.0-18.0) g/dl Hct (42.0-52.0) % MCV (80.0-98.0) fL MCH (27.0-33.0) pg MCHC (31.0-36.0) g/dl RDW (11.0-16.0) % Plt Count (160-400) X10*3/uL MPV (9.4-12.4) fL Immature Gran % (Auto) (0.0-0.4) % Neut % (Auto) (45-73) % Lymph % (Auto) (20-40) % Sevier % (Auto) (2-11) % Eos % (Auto) (0-4) % Baso % (Auto) (0-2) % Lymph # (Auto) (1.2-4.9) X10*3/uL Sevier # (Auto) (0.1-1.2) X10*3/uL Eos # (Auto) (0.0-0.4) X10*3/uL Baso # (Auto) (0.0-0.2) X10*3/uL Abs Immat Gran (auto) (0.00-0.03) X10*3/uL Absolute Neuts (auto) (2.0-8.3) x10*3/uL Absolute Nucleated RBC (0.0-0.012) X10*3/uL Nucleated RBC % (auto) (0.0-0.2) /100WBC PT (11.1-13.3) SEC INR (0.9-1.1) APTT (26.0-36.4) SEC D-Dimer High Sensitivty NG/ML Sodium (135-145) mmol/L Potassium (3.3-5.1) mmol/L Chloride (96-108) mmol/L Carbon Dioxide (22-29) mmol/L Anion Gap (12-20) BUN (9-16) mg/dL Creatinine (0.5-1.4) mg/dL Estim Creat Clear Calc Estimated GFR Random Glucose (60-115) mg/dL Calcium (8.4-10.2) mg/dL Total Bilirubin (0.0-1.0) mg/dL Direct Bilirubin (0.0-0.5) mg/dL AST (5-37) U/L ALT (0-40) U/L Alkaline Phosphatase (39-117) U/L Troponin I High Sens 20.1 (<3.5-35.0) ng/L B-Natriuretic Peptide (<100) pg/mL Total Protein (6.5-8.0) g/dL Albumin (3.5-5.0) g/dL COVID-19 (ZUHAIR) (Negative) COVID-19 Clin Com Influenza Type A (KENDRA) (Negative) Influenza Type B (KENDRA) (Negative) Influenza A & B Note Independent Interpretation I performed an independent interpretation of an: EKG (My interpretation EKG sinus rhythm with premature supraventricular complexes. No STEMI. Nonischemic. [place] interval 180) Radiology Impression Discussion of test interpretation with radiology: I have reviewed the radiologist's reading. External Record Review External record reviewed: Inpatient record, Office record, Outpatient record, Prior outpatient labs, Prior outpatient radiology, Primary care record and Outside ED record Tests considered The following testing was considered but not selected: As above Prescription Management I considered prescription management with: Pain Medication Discharge Plan Discharge Clinical Impression: Atypical chest pain, Acute viral syndrome Patient Disposition: Home, Self-Care Instructions: Viral Syndrome (ED), Noncardiac Chest Pain (ED) Additional Instructions: Your blood work and chest x-ray are reassuring. He tested negative for COVID & flu Please have close follow-up with your doctor as well as Cardiology If symptoms persist or worsen return to the emergency department Prescriptions: No Action omeprazole 40 mg capsule,delayed release(DR/EC) 40 mg PO DAILY Qty: 90 1RF losartan 100 mg tablet 100 mg PO DAILY 90 Days Qty: 90 1RF colchicine (gout) 0.6 mg tablet 0.6 mg PO BID Qty: 24 0RF Rx Instructions: Take 1.2 mg for the 1st dose, then take 0.6 mg 1 hour after your 1st dose, and 0.6 mg every 12 hours for the next 10 days. pravastatin 40 mg tablet 40 mg PO DAILY Qty: 90 1RF hydrochlorothiazide 12.5 mg tablet 12.5 mg PO QAM Qty: 90 1RF amlodipine 5 mg tablet 5 mg PO DAILY doxycycline hyclate 100 mg capsule 100 mg PO BID 7 Days Qty: 14 0RF albuterol sulfate 90 mcg/actuation HFA aerosol inhaler 2 puff inhalation Q6H PRN (Reason: shortness of breath or wheezing) Qty: 6.7 0RF prednisone 20 mg tablet 40 mg PO DAILY 5 Days Qty: 10 0RF cholecalciferol (vitamin D3) 1,250 mcg (50,000 unit) capsule 1,250 mcg PO QWEEK gabapentin 300 mg capsule 300 mg PO TID Referrals: [facility] [place] Cardiovascular Services [Provider Group] Wily Becerra, [employer] [Primary Care Provider] - 3 days
[2023-04-30 12:14] LABS: Anion Gap 11 (12-20); Blood Urea Nitrogen 12 mg/dL (9-16); Calcium 9.9 mg/dL (8.4-10.2); Carbon Dioxide 28 mmol/L (22-29); Chloride 108 mmol/L (96-108); Estimated Glomerular Filt Rate > 60; Glucose Random 102 mg/dL (60-115); Potassium 4.4 mmol/L (3.3-5.1); Sodium 143 mmol/L (135-145)
--- NOTE | 2023-04-30 12:15 | PC.NURSE ---
patient a&ox3, cardiac cath lab radiology technologist applied- nsr with occasional pvcs, pt c/o nasal congestion/dry cough also state he has mid sternal chest pain with deep breathing, ekg previously performed, labs drawn, pt awaiting cxr, call [facility]son wtihin reach, will continue to monitor
[2023-04-30 12:23] LABS: Troponin-I High Sensitivity 16.6 ng/L (<3.5-35.0)
[2023-04-30] MEDS: Ketorolac Tromethamine 30 MG/ML VIAL IM (12:35)
--- NOTE | 2023-04-30 12:37 | PC.NURSE ---
pt medicated for pain per order
[2023-04-30 12:52] LABS: COVID-19 Test Negative (Negative); IDNOW Serial# BCCEAD1C
[2023-04-30 12:53] LABS: IDNOW Serial# 9DD0AD1C; Influenza A Negative (Negative); Influenza B2 Negative (Negative)
[2023-04-30 13:03] LABS: Alanine Aminotransferase 32 U/L (0-40); Albumin Level 3.9 g/dL (3.5-5.0); Alkaline Phosphatase 60 U/L (39-117); Aspartate Amino Transferase 19 U/L (5-37); Bilirubin Direct 0.2 mg/dL (0.0-0.5); Bilirubin Total 0.5 mg/dL (0.0-1.0); Total Protein 7.4 g/dL (6.5-8.0)
[2023-04-30 13:13] LABS: B Type Natriuretic Peptide 14 pg/mL (<100)
[2023-04-30 14:00] VITALS: BP 153/78; PULSE 76; RESP 18; TEMP 36.7; O2SAT 98
[2023-04-30 14:02] LABS: D Dimer High Sensitivity < 150 NG/ML
[2023-04-30 15:44] LABS: Troponin-I High Sensitivity 20.1 ng/L (<3.5-35.0)
[2023-04-30 16:20] VITALS: BP 150/73; PULSE 74; RESP 16; TEMP 36.8; O2SAT 98
== END 2023-04-30 16:24 | disposition home or self-care (01) ==
PROVIDERS: Physician Assistant; Emergency Provider Emergency Medicine; PCP Nurse Practitioner Family
DX: R07.89 Other chest pain (principal); R05.9 Cough, unspecified; R06.02 Shortness of breath; B34.9 Viral infection, unspecified; Z20.822 Contact with and (suspected) exposure to COVID-19; Z20.828 Contact with and (suspected) exposure to other viral communicable diseases; Z79.899 Other long term (current) drug therapy; Z87.891 Personal history of nicotine dependence
CPT/HCPCS: 36415; 71045; 80048; 80076; 83880; 84484; 85025; 85379; 85610; 85730; 87502; 87635; 93005; 96372; 99284; J1885

== ENCOUNTER 2023-08-30 10:55 | Day surgery (SDC) | payer OTHER, SELFPAY ==
[2023-08-30] VITALS (7 sets, daily range): BP systolic 93–148; BP diastolic 49–103; PULSE 78–97; RESP 16–18; TEMP 36.5–36.8; O2SAT 95–99; BMI 56.3
--- NOTE | 2023-08-30 11:24 | HO.ANESPROP2 ---
HPI - Anesthesia Eval Consult details Narrative: 48 yo male patient for Colonoscopy [facility] Active Problems Active Problems: All Active Problems (Updated 08/30/23 @ 11:00 by Lisa Lacey MD) Personal history of colonic polyps (Acute) Gout attack (Acute) Screening for colon cancer (Acute) DDD (degenerative disc disease), lumbar (Acute) Elevated liver enzymes (Acute) Lower back pain (Acute) Morbid obesity (Acute) BMI 56.3 Meralgia paraesthetica (Acute) Acute pharyngitis (Acute) URI (upper respiratory infection) (Acute)- 2 weeks ago. Resolved Chest tightness (Acute) Peritonsillar abscess determined by examination (Acute) Bilateral thumb pain (Acute) Carpal tunnel syndrome (Acute) Physical exam (Acute) Penile lesion (Acute) Genital warts (Acute) Osteoarthritis (Acute) Bilateral hand numbness (Acute) Past Medical History Medical History DDD (degenerative disc disease), lumbar Dyslipidemia Sleep apnea GERD (gastroesophageal reflux disease) Hypertension Hx of gout Osteoarthritis Bilateral hand numbness Family History Family History Father No problems noted. Mother HTN (hypertension) Diabetes mellitus Maternal Grandmother Myocardial infarction Family history of problems with anesthesia: No Surgical History Surgical History History of esophagogastroduodenoscopy (EGD) Hx of colonoscopy History of appendectomy History of Problems with Anesthesia: No Social History Social History Household Members: Significant Other and Children Household Members Other:: Mother Housing: House Alcohol intake: current Alcohol intake frequency: holidays/special occasions only Alcohol type: hard liquor Patient Tobacco Use Status: Former Tobacco user Current occupational status: unemployed Cognitive needs: No Hearing needs: No Vision needs: No Meds Allergies Allergy/AdvReac Type Severity Reaction Status Date / Time No Known Allergies Allergy Verified 04/30/23 09:32 Exam Height,Weight and Vital Signs: Height 5 ft 6 in Weight 158.258 kg Last Vital Signs Temp 98.3 F 08/30/23 11:16 Pulse 78 08/30/23 11:16 Resp 18 08/30/23 11:16 BP 143/103 H 08/30/23 11:16 Pulse Ox 96 08/30/23 11:16 O2 Del Method Room Air 08/30/23 11:16 Airway Mallampati Class: III TM Dist: >3cm Neck ROM: Full Loose/Missing/Broken Teeth: Yes (Chipped tooth top front) Heart: RRR Lungs: CTAB Assessment and Plan Assessment Anesthesia Assessment: Anesthesia Plan Discussed and Chart Reviewed Final Anesthetic Review Family History of Problems with Anesthesia: No History of Problems with Anesthesia: No NPO: Yes ASA Class: III Final Preanesthetic Review: No Changes in Pt Med Stat, Meds/Allgs Chart Reviewed, Consent Obtained/Reviewed and Anes Risks/Benef Reviewed Patient Risk: Intermediate Procedure Risk: Low Assessment/Block/Sedation in SS: Assess/Block/Sedation-SS Anesthetic Plan Anesthetic Plan: GA Disposition: Standard PACU
--- NOTE | 2023-08-30 11:29 | MHC.SHP ---
Pre-Procedural Eval Section A - 24 Hr Update-Section A only Date of Service: 08/30/23 Section B - Complete if H&P > 30 days Chief Complaint: obesity,hx colonic polyps, Relevant Family History (Specify if Yes): No Relevant Social History: None Present Medications: see Short Stay Collaborative assessment Medical History: Significant History (Bilateral hand numbness Dyslipidemia GERD (gastroesophageal reflux disease) Hx of gout Hypertension Osteoarthritis Sleep apnea) History of Previous Operations: Relevant previous surgery/procedure and date(s) (History of appendectomy Hx of colonoscopy) Allergies: Allergies Allergy/AdvReac Type Severity Reaction Status Date / Time No Known Allergies Allergy Verified 04/30/23 09:32 Review of Systems Sugical H&P ROS: Negative: Constitution, Cardiovascular, Respiratory, Neurological, Psychiatric, Hem-Onc, Allergic/Immunologic, Gastrointestinal, Genitourinary, Musculoskeletal, Integumentary, Endocrine and Eyes/Ears/Nose/Throat Exam Surgical H&P Exam: Normal: HEENT, Normal: Heart, Normal: Lungs, Normal: Extremities, Normal: Abdomen, Normal: Skin and Normal: Neurological Exam Comment: high BMI Plan Diagnosis/Plan: Unchanged I have reviewed the history and physical and performed a pertinent physical examination on my patient. No changes have occurred unless specified. Time Spent With Patient Time: Total time managing care of this patient today ____ minutes.
[2023-08-30] MEDS: Lactated Ringers 1,000 ML 50 ML IVCONT (11:36)
--- NOTE | 2023-08-30 12:42 | P.OP_ITS ---
Operative Note Operative Note Date of Service: 08/30/23 Narrative: Operative Information Procedure Description: Colonoscopy Indication: hx of polyp Anesthesia: General anesthesia COLONOSCOPY Instrument: Olympus variable stiffness ADULT scope 190L Colonoscopy Monitoring: Vital signs and clinical assessment, continuous EKG monitoring, Pulse oximetry, Carbon Dioxide monitoring and blood pressure monitoring were done throughout the procedure. Colon withdrawal time was 15 minutes. Procedure: The patient was placed in the left lateral decubitis position and pre-procedure medications were administered. After a digital rectal examination of the ano-rectum, the video colonoscope was inserted into the rectum and advanced through the colon to the cecum/TI. The colonoscope was slowly withdrawn in a retrograde panoramic fashion and the colon mucosa was carefully examined including a retroflexed view of the rectum. Findings and interventions are described below. Procedure Difficulty: easy Findings: Terminal Ileum-normal Cecum:normal Ascending Colon: normal Transverse Colon -normal Descending Colon: x 3 sessile polyps noted. one polyp 10 mm removed with cold snare and one polyp 7-8 mm removed with cold snare. one polyp 4-6 mm removed with cold forceps Sigmoid Colon: moderate diverticulosis Rectum: Retroflexion with small internal hemorrhoids, grade I Anorectum - normal Colon preparation: Robert Lee Bowel Preparation Scale Right colon; 2 Transverse colon: 2 Left colon; 1-2 (0 = Unprepared colon segment with mucosa not seen due to solid stool that cannot be cleared. 1 = Portion of mucosa of the colon segment seen, but other areas of the colon segment not well seen due to staining, residual stool and/or opaque liquid. 2 = Minor amount of residual staining, small fragments of stool and/or opaque liquid, but mucosa of colon segment seen well. 3 = Entire mucosa of colon segment seen well with no residual staining, small fragments of stool or opaque liquid) Impression and Post Procedure Diagnosis: polyps internal hemorrhoids diverticular disease Plan: High fiber diet leaflet Avoid straining at stool, epsom salts and sitz bath, anusol supps or cream Repeat Colonoscopy in 3-4 years due to polyps and fair prep in some area or earlier if clinically indicated Above findings were reviewed with the patient and relevant handouts were provided if indicated.
== END 2023-08-30 14:32 | disposition home or self-care (01) ==
PROVIDERS: PCP Nurse Practitioner Family; Visit Provider Internal Medicine Gastroenterology
PROC: 0DJD8ZZ Inspection of Lower Intestinal Tract, Via Natural or Artificial Opening Endoscopic (ICD-10-PCS; CPT 45378; principal; 2023-08-30 13:30)
DX: Z12.11 Encounter for screening for malignant neoplasm of colon (principal); D12.7 Benign neoplasm of rectosigmoid junction; K57.30 Diverticulosis of large intestine without perforation or abscess without bleeding; K64.0 First degree hemorrhoids; Z86.010 Personal history of colon polyps; I10 Essential (primary) hypertension; E78.5 Hyperlipidemia, unspecified; G47.30 Sleep apnea, unspecified; E66.01 Morbid (severe) obesity due to excess calories; Z68.43 Body mass index [BMI] 50.0-59.9, adult
CPT/HCPCS: 45385; 88305; J1596; J2405; J2704; J3010

== ENCOUNTER → 2023-08-30 10:55 | Outpatient (BNV) | payer OTHER, SELFPAY | PROVIDERS: PCP Nurse Practitioner Family; Visit Provider Internal Medicine Gastroenterology | DX: Z12.11 Encounter for screening for malignant neoplasm of colon (principal); Z86.010 Personal history of colon polyps; D12.4 Benign neoplasm of descending colon; K64.0 First degree hemorrhoids | CPT/HCPCS: 45380; 45385 ==

== ENCOUNTER 2023-12-10 15:52 | Outpatient (AMB) | payer OTHER, SELFPAY ==
[2023-12-10 15:53] VITALS: BP 120/86; PULSE 101; O2SAT 98; BMI 58.1
--- NOTE | 2023-12-10 15:53 | MHC.PC.OV ---
Vital Signs 12/10/23 15:53 Height 5 ft 6 in Weight 360 lb BMI 58.1 BP 120/86 Blood Pressure Location Rt brachial Position Sitting Pulse 101 H Pulse Source Pulse Oximeter Pulse Oximetry (%) 98 Oxygen Delivery Method Room Air Intake Visit Reasons: Plantar fasciitis Intake Note: Patient here to discuss Colonoscopy and weight loss options. Allergies No Known Allergies Allergy (Verified 12/10/23 16:45) Medication List - Last Reconciled 12/10/23 by YUNIER Zhang albuterol sulfate 90 mcg/actuation 2 puffs inhalation Q6H PRN colchicine 0.6 mg PO BID hydrochlorothiazide 12.5 mg PO QAM losartan 100 mg PO DAILY 90 days pravastatin 40 mg PO DAILY Tobacco use date assessed: 12/10/23 Dental Screening Dental Screen Date: 12/10/23 Did you have a dental visit in the last 12 months?: Yes Did you have a dental problem in the last 6 months where you did not have access to dental care?: No Was dental information given to patient?: Patient has dentist HPI Plantar fasciitis HPI Details Pt is interested in weight loss. He has been working on his diet but continues to gain weight. He has seen bariatrics in the past but is no longer able to go there. Pt would like to try a medication for this. Pt's BMI is currently 58.1. Will send wegovy 0.25mg. Pt has a hx of plantar fasciitis. He is seeing [facility] and had a recent cortisonr injection. He reports that this has improved. Pt c/o lower back pain. He has a hx of DDD. He would like to see a chiropractor, will refer. Denies fever, chills, and dizziness. [facility] Medical History DDD (degenerative disc disease), lumbar Dyslipidemia Sleep apnea GERD (gastroesophageal reflux disease) Hypertension Hx of gout Osteoarthritis Bilateral hand numbness Surgical History History of esophagogastroduodenoscopy (EGD) Hx of colonoscopy History of appendectomy Family History Father No problems noted. Mother HTN (hypertension) Diabetes mellitus Maternal Grandmother Myocardial infarction Social History Household Members: Significant Other and Children Household Members Other:: Mother Housing: House Alcohol intake: current Alcohol intake frequency: holidays/special occasions only Alcohol type: hard liquor Patient Tobacco Use Status: Former Tobacco user e-Cigarette/Vaping Use: Never Used service: No Current occupational status: unemployed Cognitive needs: No Hearing needs: No Vision needs: No Questionnaire Thrive Questionnaire Date Thrive assessed: 11/14/22 AUDIT C Alcohol Use Questionnaire (AUDIT-C) 1. How often do you have a drink containing alcohol?: 2-4 times a month 2. How many drinks containing alcohol do you have on a typical day when you are drinking?: 3 or 4 3. How often do you have six or more drinks on one occasion?: Less than monthly Total Score: 4 Score Reviewed/Action Taken: Yes ANSHUL-7 AMB Questionnaire ANSHUL-7 Date ANSHUL - 7 assessed: 11/14/22 Source: Developed by Drs. Norberto Cruz, Rosalia Alcocer, Farhat Diaz and colleagues, with an educational rajwinder from [employer]. Review of Systems Const Reports as per HPI Physical exam (Primary Care) Vital Signs: Last Vital Signs Pulse 101 H 12/10/23 15:53 BP 120/86 12/10/23 15:53 Pulse Ox 98 12/10/23 15:53 Oxygen Delivery Method Room Air 12/10/23 15:53 BMI result Body Mass Index 58.1 Tobacco/Smoking Status: Tobacco use Status Tobacco use date assessed 12/10/23 12/10/23 15:56 Patient Tobacco Use Status Former Tobacco user 12/10/23 15:56 e-Cigarette/Vaping Use Never Used 12/10/23 15:56 Thrive Assessment: Date of Thrive Assessment Date Thrive assessed 11/14/22 12/10/23 15:56 Const General: cooperative Nutritional Appearance: obese morbidly obese Orientation/consciousness: patient oriented x3 Resp Effort & Inspection: normal respiratory effort Auscultation: clear to auscultation bilaterally Cardio Rate: regular rate Rhythm: regular rhythm Heart sounds: S1 normal heart sound present and S2 normal heart sound present Neuro General: patient oriented x3 Psych Appearance: grossly normal Mental Status: mental status grossly normal Speech and movement: Normal speech and movement present Affect: normal affect Attitude: cooperative Thought process: Normal thought process present Thought content: Normal thought content present Insight: Good insight present (Psych) Judgement: Good judgement present (Psych) Assessment and Plan Assessment & Plan (1) Morbid obesity: Code(s): E66.01 - Morbid (severe) obesity due to excess calories Plan: Sending wegovy (2) DDD (degenerative disc disease), lumbar: Code(s): M51.36 - Other intervertebral disc degeneration, lumbar region Plan: Referred to chiropractor (3) Screening for prostate cancer: Code(s): Z12.5 - Encounter for screening for malignant neoplasm of prostate Plan: PSA ordered Plan The patient agreed to the use of a medical lab specialist for this encounter. Scribed for YUNIER Knapp by Asia Kerr medical lab specialist, on 12/10/2023 at 16:15 EST. Orders: Orders Complete Blood Count Auto Diff Today E66.01 - Morbid (severe) obesity due to excess calories, M72.2 - Plantar fascial fibromatosis TSH reflex Free T4 Today E66.01 - Morbid (severe) obesity due to excess calories, M72.2 - Plantar fascial fibromatosis UA CC w/rflx Micro + Cult Today E66.01 - Morbid (severe) obesity due to excess calories, M72.2 - Plantar fascial fibromatosis Lipid Panel Today E66.01 - Morbid (severe) obesity due to excess calories, M72.2 - Plantar fascial fibromatosis Comprehensive [place]. Panel Fast Today E66.01 - Morbid (severe) obesity due to excess calories, M72.2 - Plantar fascial fibromatosis Prostate Specific Antigen Scr Today Z12.5 - Encounter for screening for malignant neoplasm of prostate Referrals Chiropractic Referral M51.36 - Other intervertebral disc degeneration, lumbar region Medications: New semaglutide (weight loss) (Wegovy) administer weeks 1 through 4 of therapy 0.25 mg (0.5 mL) subcut QWEEK 2 mL 0RF Coding Level of Care Code Est Pt Level 3 (52103) Diagnoses Morbid obesity E66.01 DDD (degenerative disc disease), lumbar M51.36 Screening for prostate cancer Z12.5
== END 2023-12-10 16:29 | disposition home or self-care (01) ==
PROVIDERS: PCP Nurse Practitioner Family; Visit Provider Nurse Practitioner Family
DX: M51.36 Other intervertebral disc degeneration, lumbar region (principal); E66.01 Morbid (severe) obesity due to excess calories; Z12.5 Encounter for screening for malignant neoplasm of prostate; Z68.43 Body mass index [BMI] 50.0-59.9, adult
CPT/HCPCS: 99213

== ENCOUNTER 2023-12-14 07:51 | Outpatient (REF) | payer OTHER, SELFPAY ==
[2023-12-14 10:26] LABS: MANUAL DIFF FLAG NO
[2023-12-14 10:39] LABS: Basophils Absolute Auto 0.1 X10*3/uL (0.0-0.2); Basophils Percent Auto 0.7 % (0-2); Eosinophils Absolute Auto 0.1 X10*3/uL (0.0-0.4); Eosinophils Percent Auto 1.2 % (0-4); Hematocrit 45.5 % (42.0-52.0); Hemoglobin 15.6 g/dl (14.0-18.0); Imm Gran Abs Auto 0.05 X10*3/uL (0.00-0.03); Imm Gran Pct Auto 0.7 % (0.0-0.4); Lymphocytes Absolute Auto 2.5 X10*3/uL (1.2-4.9); Lymphocytes Percent Auto 37.8 % (20-40); Mean Corpuscular HGB Conc 34.3 g/dl (31.0-36.0); Mean Corpuscular Hemoglobin 30.4 pg (27.0-33.0); Mean Corpuscular Volume 88.5 fL (80.0-98.0); Mean Platelet Volume 10.7 fL (9.4-12.4); Monocytes Absolute Auto 0.5 X10*3/uL (0.1-1.2); Monocytes Percent Auto 7.7 % (2-11); Neutrophils Absolute Auto 3.5 x10*3/uL (2.0-8.3); Neutrophils Percent Auto 51.9 % (45-73); Platelet Count 216 X10*3/uL (160-400); Red Blood Count 5.14 X10*6/uL (4.60-5.80); Red Cell Distribution Width 12.3 % (11.0-16.0); White Blood Count 6.7 X10*3/uL (4.8-10.8)
[2023-12-14 10:52] LABS: Appearance Urine Clear; Color Urine Yellow; Glucose Urine UA Negative (Negative); Leukocyte Esterase Urine Negative (Negative); Nitrite Urine Negative (Negative); PH 5.5 (5.0-9.0); Urine Blood Negative (Negative); Urine Ketones Negative (Negative); Urine Protein Negative (Neg-Trace)
[2023-12-14 11:15] LABS: Alanine Aminotransferase 38 U/L (0-40); Alkaline Phosphatase 63 U/L (39-117); Anion Gap 13 (12-20); Aspartate Amino Transferase 21 U/L (5-37); Blood Urea Nitrogen 12 mg/dL (9-16); Calcium 9.2 mg/dL (8.4-10.2); Carbon Dioxide 24 mmol/L (22-29); Chloride 106 mmol/L (96-108); Cholesterol 192 mg/dL (<200); Estimated Glomerular Filt Rate > 60; Glucose Fasting 105 mg/dL (60-99); HDL Cholesterol 45 mg/dL (>40); LDL Cholesterol Calculated 126 mg/dL (<100); Potassium 3.7 mmol/L (3.3-5.1); Sodium 139 mmol/L (135-145); Total Protein 7.4 g/dL (6.5-8.0); Triglycerides 109 mg/dL (<150)
[2023-12-14 11:30] LABS: Prostate Specific Antigen Scr 0.29 ng/mL (<0.05-4.0)
[2023-12-14 11:32] LABS: TSH reflex Free T4 1.69 uIU/mL (0.32-4.0)
== END 2023-12-14 07:52 | disposition home or self-care (01) ==
LOC: HO.HMGCLDS 07:51
PROVIDERS: PCP Nurse Practitioner Family; Visit Provider Nurse Practitioner Family
DX: M72.2 Plantar fascial fibromatosis (principal); E66.01 Morbid (severe) obesity due to excess calories; Z12.5 Encounter for screening for malignant neoplasm of prostate
CPT/HCPCS: 36415; 80053; 80061; 81003; 84153; 84443; 85025

== ENCOUNTER 2024-01-01 10:00 | Outpatient (RCR) | payer OTHER, SELFPAY | END 2024-04-03 14:56 | disposition home or self-care (01) | LOC: HO.PTCHIC 10:00 | PROVIDERS: PCP Nurse Practitioner Family; Visit Provider Physician Assistant | DX: M72.2 Plantar fascial fibromatosis (principal) | CPT/HCPCS: 97110; 97112; 97140; 97162 ==

== ENCOUNTER 2024-03-27 08:07 | Outpatient (AMB) | payer OTHER, SELFPAY ==
[2024-03-27 08:08] VITALS: BP 120/80; PULSE 75; O2SAT 97; BMI 57.5
--- NOTE | 2024-03-27 08:08 | A.OFFPC_ITS ---
Vital Signs 03/27/24 08:08 Height 5 ft 6 in Weight 356 lb BMI 57.5 BP 120/80 Blood Pressure Location Rt brachial Position Sitting Pulse 75 Pulse Source Pulse Oximeter Pulse Oximetry (%) 97 Oxygen Delivery Method Room Air Intake Visit Reasons: 3M F/U labs Intake Note: pt is here for 3 month follow up, regarding labs and weight loss Preparation Room Worker Required: No Accompanied by: Self / Same As Patient Allergies No Known Allergies Allergy (Verified 03/27/24 08:45) Medication List - Last Reconciled 03/27/24 by YUNIER Zhang albuterol sulfate 90 mcg/actuation 2 puffs inhalation Q6H PRN colchicine 0.6 mg PO BID hydrochlorothiazide 12.5 mg PO QAM losartan 100 mg PO DAILY 90 days pravastatin 40 mg PO DAILY semaglutide (weight loss) 0.25 mg (0.5 mL) subcut QWEEK Tobacco use date assessed: 12/10/23 Dental Screening Dental Screen Date: 12/10/23 HPI 3M F/U labs HPI Details Pt c/o recent chest tightness (3 weeks ago). He reports that the discomfort did not radiate. Pt did reports some numbness in his LUE to his hand. Pt does report some increased stress. He had some mind racing at the time as well. ? anxiety related. Will do an EKG in office. Will also order stress test. Denies fever, chills, and shortness of breath. Wegovy sent due to morbid obesity. Dyslipidemia: Pt will restart his pravastatin. [facility] Medical History (Updated 03/27/24 @ 08:20 by YUNIER Zhang) Diverticulosis DDD (degenerative disc disease), lumbar Dyslipidemia Sleep apnea GERD (gastroesophageal reflux disease) Hypertension Hx of gout Osteoarthritis Bilateral hand numbness Surgical History History of esophagogastroduodenoscopy (EGD) Hx of colonoscopy History of appendectomy Family History Father No problems noted. Mother HTN (hypertension) Diabetes mellitus Maternal Grandmother Myocardial infarction Social History Household Members: Significant Other and Children Household Members Other:: Mother Housing: House Alcohol intake: current Alcohol intake frequency: holidays/special occasions only Alcohol type: hard liquor Patient Tobacco Use Status: Former Tobacco user e-Cigarette/Vaping Use: Never Used service: No Current occupational status: unemployed Cognitive needs: No Hearing needs: No Vision needs: No Questionnaire PHQ-9 Over the last 2 weeks, how often have you been bothered by any of the following problems? 1. Little interest or pleasure in doing things: several days 2. Feeling down, depressed, or hopeless: several days 3. Trouble falling or staying asleep, or sleeping too much: several days 4. Feeling tired or having little energy: several days 5. Poor appetite or overeating: not at all 6. Feeling bad about yourself - or that you are a failure or have let yourself or your family down: not at all 7. Trouble concentrating on things, such as reading the newspaper or watching television: not at all 8. Moving or speaking so slowly that other people could have noticed. Or the opposite - being so fidgety or restless that you have been moving around a lot more than usual: not at all 9. Thoughts that you would be better off or of hurting yourself in some way: not at all Total score: 4 Depression Screening Interpretation: Negative Depression Screening Done: Yes 00446 - PHQ-9 Billing: Yes Source: Developed by Drs. Norberto Cruz, Rosalia Alcocer, Farhat Diaz and colleagues, with an educational rajwinder from [employer]. Thrive Questionnaire Date Thrive assessed: 03/27/24 I am a: Patient What is your living situation today?: I have a steady place to live Within the past 12 months, did the food you bought not last and you didn't have the money to get more?: I choose not to answer this question Within the past 12 months, did you worry whether your food would run out before you got money to buy more?: I choose not to answer this question Do you have trouble paying for medicines?: No Do you have trouble getting transportation to medical appointments?: No Do you have trouble paying your heating and electricity bill?: No Do you have trouble taking care of your child, family member or friend?: No Do you have trouble with day-to-day activities such as bathing, preparing meals, shopping, managing finances, etc.?: No Are you currently unemployed and looking for a job?: No Are you interested in more education?: No Please select the resources that you would like help with: None Currently or been in a relationship where the following occur: No concerns reported THRIVE Score: 0 AUDIT C Alcohol Use Questionnaire (AUDIT-C) 1. How often do you have a drink containing alcohol?: Monthly or less 2. How many drinks containing alcohol do you have on a typical day when you are drinking?: 3 or 4 3. How often do you have six or more drinks on one occasion?: Never Total Score: 2 Score Reviewed/Action Taken: Yes ANSHUL-7 AMB Questionnaire ANSHUL-7 Date ANSHUL - 7 assessed: 03/27/24 Feeling nervous, anxious, or on edge: 0 = Not at all Not being able to stop or control worryin = Several days Worrying too much about different things: 1 = Several days Trouble relaxin = More than half the days Being so restless that it is hard to sit still: 0 = Not at all Becoming easily annoyed or irritable: 1 = Several days Feeling afraid as if something awful might happen: 0 = Not at all Total ANSHUL-7 score (0-4 normal; 5-9 mild; 10-14 moderate; 15-21 severe): 5 Source: Developed by Drs. Norberto Cruz, Rosalia Alcocer, Farhat Diaz and colleagues, with an educational rajwinder from [employer]. ANSHUL-7 Assessment Billing ANSHUL-7 Assessment Tool: ANSHUL-7 Assessment 07941 Review of Systems Const Reports as per HPI Physical exam (Primary Care) Vital Signs: Last Vital Signs Pulse 75 03/27/24 08:08 BP 120/80 03/27/24 08:08 Pulse Ox 97 03/27/24 08:08 Oxygen Delivery Method Room Air 03/27/24 08:08 BMI result Body Mass Index 57.5 Tobacco/Smoking Status: Tobacco use Status Tobacco use date assessed 12/10/23 03/27/24 08:09 Patient Tobacco Use Status Former Tobacco user 03/27/24 08:09 e-Cigarette/Vaping Use Never Used 03/27/24 08:09 PHQ-9: PHQ-9 Score PHQ-9: Total score 5 03/27/24 08:09 Depression Screening Interpretation: Negative Thrive Assessment: Date of Thrive Assessment Date Thrive assessed 03/27/24 03/27/24 08:09 Currently or been in a relationship where the following occur: No concerns reported Const General: cooperative Nutritional Appearance: obese morbidly obese Orientation/consciousness: patient oriented x3 Resp Effort & Inspection: normal respiratory effort Auscultation: clear to auscultation bilaterally Cardio Rate: regular rate Rhythm: regular rhythm Heart sounds: S1 normal heart sound present and S2 normal heart sound present Neuro General: patient oriented x3 Psych Appearance: grossly normal Mental Status: mental status grossly normal Speech and movement: Normal speech and movement present Affect: normal affect Attitude: cooperative Thought process: Normal thought process present Thought content: Normal thought content present Insight: Good insight present (Psych) Judgement: Good judgement present (Psych) Assessment and Plan Assessment & Plan (1) Chest tightness: Code(s): R07.89 - Other chest pain Plan: EKG done in office, stress test ordered, any worsening symptoms (ER) (2) Dyslipidemia: Code(s): E78.5 - Hyperlipidemia, unspecified Plan: Labs ordered (3) Morbid obesity: Code(s): E66.01 - Morbid (severe) obesity due to excess calories Plan: Suri sent Plan The patient agreed to the use of a medical bill processor for this encounter. Scribed for LOREN Knapp by Asia Kerr medical bill processor, on 03/27/2024 at 08:15 EST. Orders: Orders Comprehensive [place]. Panel Fast Today E78.5 - Hyperlipidemia, unspecified, R07.89 - Other chest pain TSH reflex Free T4 Today E78.5 - Hyperlipidemia, unspecified, R07.89 - Other chest pain Lipid Panel Today E78.5 - Hyperlipidemia, unspecified, R07.89 - Other chest pain CA stress test Today E66.01 - Morbid (severe) obesity due to excess calories, R07.89 - Other chest pain Complete Blood Count Auto Diff Today E78.5 - Hyperlipidemia, unspecified, R07.89 - Other chest pain UA CC w/rflx Micro + Cult Today E78.5 - Hyperlipidemia, unspecified, R07.89 - Other chest pain NM cardiolite stress test Today E66.01 - Morbid (severe) obesity due to excess calories, R07.89 - Other chest pain Medications: Changed From semaglutide (weight loss) administer weeks 1 through 4 of therapy 0.5 mg (0.5 mL) subcut QWEEK 2 mL 0RF To semaglutide (weight loss) administer weeks 1 through 4 of therapy 0.25 mg (0.5 mL) subcut QWEEK 2 mL 0RF Coding Level of Care Code Est Pt Level 3 (88229) Diagnoses Chest tightness R07.89 Dyslipidemia E78.5 Morbid obesity E66.01 Additional Codes ANSHUL-7 Assessment Billing - ANSHUL-7 Assessment Tool: ANSHUL-7 Assessment 54888 ([id number])
--- OUTSIDE RECORDS SUMMARY | 2024-03-27 08:08 | XMS_ITS | Continuity of Care Document ---
Author Organization [facility] ter Address [address] [place] [id number]- Care Team Providers Care Train System Operator Name Role Phone Xander Estrada DO Cory Primary Care Physician Encounter [facility] [place] Date(s): 12/24/21 - 12/24/[address] [address]- Encounter Diagnosis Sigmoid diverticulitis(Final) - 12/24/21 Discharge Disposition: A-D/C Home Attending Physician: Chris Angulo MD Admitting Physician: Chris Angulo MD Referring Physician: Not on Staff, Referring MD Allergies, Adverse Reactions, Alerts No Known Allergies Medications allopurinol 300 mg oral tablet 300 mg, 1, tablet, By Mouth, Daily, # 30 tablet, Refills 0, Maintenance, 03/20/18 2:23:51 EDT Start Date: 03/20/18 Status: Ordered Augmentin 875 mg-125 mg oral tablet 1 tablet, By Mouth, Every 12 hours, for 10 days, # 20 tablet, 0 Refills, Acute 01/03/22 18:57:00 EDT, 12/24/21 18:57:00 EDT, Tablet, [facility] #[id number], Partial fill upon patient request if the prescription is for a schedule II opioid drug.,... Start Date: 12/24/21 Stop Date: 01/03/22 Status: Ordered ibuprofen 600 mg oral tablet 600 mg, 1, tablet, By Mouth, 4 times a day, PRN, for 7 days, # 28 tablet, Refills 0, Tot. Refills 0, Acute 12/31/21 18:57:00 EDT, for pain, 12/24/21 18:57:00 EDT, Route to Pharmacy Electronically, [facility] #[id number], Partial fill upon patient... Start Date: 12/24/21 Stop Date: 12/31/21 Status: Ordered losartan 50 mg oral tablet 50 mg, 1, tablet, By Mouth, Daily, # 30 tablet, Refills 0, Maintenance, 03/20/18 2:23:27 EDT Start Date: 03/20/18 Status: Ordered omeprazole 40 mg oral enteric coated capsule 1 capsule = 40 mg, By Mouth, Daily, # 30 capsule, 0 Refills, Maintenance, 03/20/18 2:24:19 EDT, EC Capsule Start Date: 03/20/18 Status: Ordered ondansetron 4 mg oral tablet, disintegrating 1 tablet = 4 mg, By Mouth, Every 8 hours, PRN as needed for nausea/vomiting, # 9 tablet, 0 Refills,Maintenance, 12/24/21 18:58:00 EDT, DIS Tablet, [facility] #[id number], Partial fill upon patient request if the prescription is for a schedule II... Start Date: 12/24/21 Stop Date: 12/27/21 Status: Ordered pravastatin 20 mg oral tablet 20 mg, 1, tablet, By Mouth, Daily, # 30 tablet, Refills 0, Maintenance, 03/20/18 2:23:12 EDT Start Date: 03/20/18 Status: Ordered Vital Signs Most recent to oldest [Reference Range]: 1 2 3 Height 173 cm (12/24/21 2:56 PM) Oxygen Saturation [94-100 %] 97 % (12/24/21 6:44 PM) 98 % (12/24/21 3:47 PM) 99 % (12/24/21 2:56 PM) Pulse Rate [55-90 bpm] 87 bpm (12/24/21 6:44 PM) 77 bpm (12/24/21 3:47 PM) 81 bpm (12/24/21 2:56 PM) Blood Pressure [90-138/55-84 mm Hg] 116/64mm Hg (12/24/21 6:44 PM) 110/83mm Hg (12/24/21 3:47 PM) 132/78mm Hg (12/24/21 2:56 PM) Respiratory Rate [16-30 br/min] 18 br/min (12/24/21 6:44 PM) 18 br/min (12/24/21 3:47 PM) 21 br/min (12/24/21 2:56 PM) Temperature [96.8-100.4 DegF] 98.7 DegF (12/24/21 6:44 PM) 101.0 DegF *H* (12/24/21 3:47 PM) 98.8 DegF (12/24/21 2:56 PM) Mode of Delivery (Oxygen) Room air (12/24/21 6:44 PM) Room air (12/24/21 3:47 PM) Room air (12/24/21 2:56 PM) Blood pressure sites Arm, right (12/24/21 6:44 PM) Arm, right (12/24/21 3:47 PM) Arm, left (12/24/21 2:56 PM) Temperature Route Oral (12/24/21 6:44 PM) Oral (12/24/21 3:47 PM) Oral (12/24/21 2:56 PM) Dry Weight 150 kg (12/24/21 2:56 PM) Social History Social History Type Response Smoking Status Former smoker entered on: 04/02/18 Sex
== END 2024-03-27 08:48 | disposition home or self-care (01) ==
PROVIDERS: PCP Nurse Practitioner Family; Visit Provider Nurse Practitioner Family
DX: R07.89 Other chest pain (principal); E78.5 Hyperlipidemia, unspecified; E66.01 Morbid (severe) obesity due to excess calories; Z68.43 Body mass index [BMI] 50.0-59.9, adult
CPT/HCPCS: 93000; 99213

== ENCOUNTER 2024-05-22 06:58 | Outpatient (REF) | payer OTHER, SELFPAY ==
[2024-05-22 10:20] LABS: MANUAL DIFF FLAG NO
[2024-05-22 10:28] LABS: Basophils Absolute Auto 0.1 X10*3/uL (0.0-0.2); Eosinophils Absolute Auto 0.1 X10*3/uL (0.0-0.4); Hematocrit 42.6 % (42.0-52.0); Hemoglobin 14.8 g/dl (14.0-18.0); Imm Gran Abs Auto 0.05 X10*3/uL (0.00-0.03); Imm Gran Pct Auto 0.7 % (0.0-0.4); Lymphocytes Absolute Auto 2.4 X10*3/uL (1.2-4.9); Lymphocytes Percent Auto 34.8 % (20-40); Mean Corpuscular HGB Conc 34.7 g/dl (31.0-36.0); Mean Corpuscular Hemoglobin 30.8 pg (27.0-33.0); Mean Corpuscular Volume 88.8 fL (80.0-98.0); Mean Platelet Volume 10.6 fL (9.4-12.4); Monocytes Absolute Auto 0.5 X10*3/uL (0.1-1.2); Monocytes Percent Auto 7.1 % (2-11); Neutrophils Absolute Auto 3.8 x10*3/uL (2.0-8.3); Neutrophils Percent Auto 55.4 % (45-73); Platelet Count 204 X10*3/uL (160-400); Red Cell Distribution Width 12.3 % (11.0-16.0); White Blood Count 6.9 X10*3/uL (4.8-10.8)
[2024-05-22 10:49] LABS: Alanine Aminotransferase 49 U/L (0-40); Albumin Level 3.8 g/dL (3.5-5.0); Alkaline Phosphatase 57 U/L (39-117); Anion Gap 10 (12-20); Aspartate Amino Transferase 40 U/L (5-37); Bilirubin Total 0.8 mg/dL (0.0-1.0); Blood Urea Nitrogen 9 mg/dL (9-16); Carbon Dioxide 27 mmol/L (22-29); Chloride 107 mmol/L (96-108); Cholesterol 141 mg/dL (<200); Estimated Glomerular Filt Rate > 60; Glucose Fasting 103 mg/dL (60-99); HDL Cholesterol 42 mg/dL (>40); LDL Cholesterol Calculated 78 mg/dL (<100); Potassium 3.8 mmol/L (3.3-5.1); Sodium 140 mmol/L (135-145); Total Protein 6.8 g/dL (6.5-8.0); Triglycerides 105 mg/dL (<150)
[2024-05-22 10:51] LABS: Appearance Urine Clear; Color Urine Yellow; Glucose Urine UA Negative (Negative); Leukocyte Esterase Urine Negative (Negative); Nitrite Urine Negative (Negative); PH 5.5 (5.0-9.0); Urine Blood Negative (Negative); Urine Ketones Negative (Negative); Urine Protein Negative (Neg-Trace)
[2024-05-22 10:57] LABS: TSH reflex Free T4 1.86 uIU/mL (0.32-4.0)
== END 2024-05-22 06:59 | disposition home or self-care (01) ==
LOC: HO.HMGCLDS 06:58
PROVIDERS: PCP Nurse Practitioner Family; Visit Provider Nurse Practitioner Family
DX: R07.89 Other chest pain (principal); E78.5 Hyperlipidemia, unspecified
CPT/HCPCS: 36415; 80053; 80061; 81003; 84443; 85025

== ENCOUNTER 2024-06-12 07:51 | Outpatient (REF) | payer OTHER, SELFPAY | END 2024-06-12 07:52 | disposition home or self-care (01) | LOC: HO.US 07:51 | PROVIDERS: PCP Nurse Practitioner Family; Visit Provider Nurse Practitioner Family | DX: R74.8 Abnormal levels of other serum enzymes (principal) | CPT/HCPCS: 76700; 76981 ==

== ENCOUNTER → 2024-07-24 08:04 | Outpatient (REF) | payer OTHER, SELFPAY ==
--- NOTE | ~2024-07-24 | NM_ITS ---
EXERCISE MYOCARDIAL PERFUSION STUDY INDICATION: Chest tightness TECHNIQUE: The patient was brought in for an exercise perfusion study on 07/24/2024. Patient performed exercise as per Veto protocol and was injected 45 mCi of sestamibi once target heart rate was achieved. Images were obtained using the SPECT gamma camera interlaced with the gating device. Images were obtained in supine position. Resting perfusion study was performed on 07/25/2024. Patient was administered 45 mCi of sestamibi intravenously at rest. Images were then obtained in supine position. Images obtained with and without CT attenuation. Total DLP 245 mGy-cm. Images were processed with the software and compared side to side in short axis, horizontal long axis and vertical long axis views. FINDINGS: Raw images were reviewed The stress perfusion study showed nonattenuated images show very small area of minimally reduced uptake in the distal lateral wall of the LV myocardium. Attenuated corrected images show mildly reduced uptake in the apex of the LV myocardium. The gated study shows normal LV systolic function with calculated LVEF of 60%. LV cavity is normal in size. The gated study shows normal systolic wall thickening and contraction of segments. Resting study shows nonattenuated images show no significant changes compared to stress perfusion study. Gating at rest reveals normal systolic wall motion with ejection fraction at 56%. The findings are consistent with no clear reversible defect. Likely normal myocardial perfusion. NM/NM cardiolite stress test IMPRESSION: 1. Myocardial perfusion imaging study shows likely normal myocardial perfusion. 2. Gated LVEF is 60%. 3. Transient ischemic dilatation not present. EKG revealed nondiagnostic changes. Electronically signed by: Walter Cintron MD 07/28/2024 09:35 AM [facility]
--- NOTE | 2024-07-24 08:06 | CA_ITS ---
Acquisition Time: 2024-07-24 08:36:34 Total Exercise Time: 00:06:45 Test Indications: CP Medications: COLCHOCINE LOSARTAN PRAVASTATIN HCTZ Protocol: СЕРГЕЙ Max HR: 151 BPM 87% of Pred: 172 BPM Max BP: 224/090 mmHG Max Work Load: 8.1 METS Exercise Stress Test with exercise 6 mins 45 secs of Сергей Protocol, achieving 87% MPHR, with moderate SOB, no chest discomfort, with frequent PACs, with resting BP at 132/84 that increased to 224/90 (pt held his morning BP pills). Without EKG changes meeting criteria for ischemia. In recovery, breathing back to baseline and BP returned to 138/70. Nuclear images pending. Test reviewed with Dr. Gaines. Referred By: Wily Becerra Overread By: Giovani Lowe
== END ==
LOC: HO.CARD 08:04
PROVIDERS: PCP Nurse Practitioner Family; Visit Provider Nurse Practitioner Family
DX: R07.89 Other chest pain (principal); E66.01 Morbid (severe) obesity due to excess calories
CPT/HCPCS: 78452; 93017; A9500

== ENCOUNTER → 2024-07-24 08:06 | Outpatient (BNV) | payer OTHER, SELFPAY | PROVIDERS: PCP Nurse Practitioner Family | DX: I49.1 Atrial premature depolarization (principal) | CPT/HCPCS: 78452; 93016; 93018 ==

== ENCOUNTER 2024-08-28 08:59 | Outpatient (AMB) | payer OTHER, SELFPAY ==
--- NOTE | 2024-08-28 09:02 | A.OFFVIS_ITS ---
Vital Signs 08/28/24 09:04 Height 5 ft 6 in Weight 364 lb 3.258 oz BMI 58.8 BP 112/74 Blood Pressure Location Rt radial Position Sitting Pulse 90 Pulse Source Pulse Oximeter Intake Visit Reasons: Obesity Intake Note: New patient internally referred by PCP for Obesity. Service Trainer Required: No Accompanied by: Self / Same As Patient Allergies No Known Allergies Allergy (Verified 08/28/24 09:05) Medication List - Last Reconciled 08/28/24 by Norberto Costa MD albuterol sulfate 90 mcg/actuation 2 puffs inhalation Q6H PRN colchicine 0.6 mg PO BID hydrochlorothiazide 12.5 mg PO QAM losartan 100 mg PO DAILY 90 days pravastatin 40 mg PO DAILY semaglutide (weight loss) 0.25 mg (0.5 mL) subcut QWEEK HPI Comments Details: This is a 49-year-old male sent to endocrinology for evaluation of obesity. Patient states weight gain of yrs over 60 lbs over last yr . Patient has tried diets of exercise, keto, weight watchers , protein shakes . He was prescribed Wegovy by his primary care provider but insurance didn't cover . Was in bariatric program in [place] but on pause. . He has not been any other weight loss medications. He has a history of elevated liver enzymes and degenerative disc disease in lumbar spine. There is no history of thyroid problems or symptoms of hypothyroidism. This is a normal TSH in April 2024. There are no symptoms of [place] syndrome. No hx of diabetes but mother and grandmother do. [facility] Medical History (Updated 03/27/24 @ 08:20 by Wily Becerra, [facility]) Diverticulosis DDD (degenerative disc disease), lumbar Dyslipidemia Sleep apnea GERD (gastroesophageal reflux disease) Hypertension Hx of gout Osteoarthritis Bilateral hand numbness Surgical History History of esophagogastroduodenoscopy (EGD) Hx of colonoscopy History of appendectomy Family History Father No problems noted. Mother HTN (hypertension) Diabetes mellitus Maternal Grandmother Myocardial infarction Social History Household Members: Significant Other and Children Household Members Other:: Mother Housing: House Alcohol intake: current Alcohol intake frequency: holidays/special occasions only Alcohol type: hard liquor Patient Tobacco Use Status: Former Tobacco user e-Cigarette/Vaping Use: Never Used service: No Current occupational status: unemployed Cognitive needs: No Hearing needs: No Vision needs: No Physical Exam Vital Signs: BMI result Body Mass Index 58.8 Const Other: Absence of cushingoid features. Thyroid gland is normal size weighs about 15 g. There are no thyroid nodules palpated Assessment & Plan Assessment & Plan (1) Morbid obesity: Code(s): E66.01 - Morbid (severe) obesity due to excess calories Category: Medical Plan: This is a 49-year-old male with a history of morbid obesity. There is no clear underlying endocrine etiology. Plan is to send the patient to paper supervisor. We will talk to the patient about potentially starting a weight loss medication namely a G LP 1 or G LP 1/ G IP if insurance will cover. After long discussion with the patient we decided to prescribe Zepbound vial and syringe way pay. I went over side effects of Zepbound including but not limited to nausea, vomiting rare risk of pancreatitis. He will follow up with Monique Manning NP in 1 month Orders: Orders Creatinine, 24 Hr Group Today E66.01 - Morbid (severe) obesity due to excess calories Cortisol, Free 24Hr Urine Today E66.01 - Morbid (severe) obesity due to excess calories Referrals Nutrition/Dietitian Referral E66.01 - Morbid (severe) obesity due to excess calories Medications: New tirzepatide (weight loss) (Zepbound) for 4 weeks 2.5 mg (0.5 mL) subcut QWEEK 2 mL 1RF E66.01 - Morbid (severe) obesity due to excess calories tirzepatide (weight loss) (Zepbound) for 4 weeks 2.5 mg (0.5 mL) subcut QWEEK 2 mL 1RF E66.01 - Morbid (severe) obesity due to excess calories Discontinued semaglutide (weight loss) administer weeks 1 through 4 of therapy Discontinued Reason: Doctor's Order 0.25 mg (0.5 mL) subcut QWEEK 2 mL 0RF Coding Level of Care Code New Pt Level 4 (61322) Diagnoses Morbid obesity E66.01
[2024-08-28 09:04] VITALS: BP 112/74; PULSE 90; BMI 58.8
--- OUTSIDE RECORDS SUMMARY | 2024-08-28 11:54 | XMS_ITS | Clinical Summary ---
Author Organization [employer] Address [address] [place] [address] [address] [place] [address] Care Team Providers Care Cloth Worker Name Role Phone Unavailable Primary Care Provider Unavailabl e Allergies No known active allergies Medications losartan (Cozaar) 50 MG tablet Take 100 mg by mouth in the morning. 2 Active pravastatin (Pravachol) 40 MG tablet Take 40 mg by mouth in the morning. 3 Active hydroCHLOROthi azide (HYDRODiuril) 12.5 MG tablet Take 12.5 mg by mouth in the morning. 3 Active metroNIDAZOLE (Flagyl) 500 MG tablet metronidazole 500 mg tablet Active omeprazole (PriLOSEC) [address] capsule Take 40 mg by mouth in the morning. 3 Active Social History Tobacco Use Types Packs/Day Years Used Date Smoking Tobacco: Some Days Cigarettes 0.3 20 Passive Smoke Exposure: Never Smokeless Tobacco: Never Tobacco Cessation:Ready to Q uit: Not Asked; Counseling Given: Not Answered Alcohol Use Standard Drinks/Week Comments Yes 18 (1 standard drink = 0.6 oz pu re alcohol) Sex and Gender Information Value Date Recorded Sex Assigned at Male 05/29/2022 10:28 AM EDT Legal Sex Male 10:28 AM EDT Gender Identity Male 09/12/2022 8:58 AM EST Sexual Orientation Straight 09/12/2022 8 :58 AM EST Last Filed Vital Signs Vital Sign Reading Time Taken Comments Blood Pressure 132/88 09/12/2022 10:03 AM EST Pulse 86 09/12/2022 10:03 AM EST Temperature - - Respiratory Rate - - Oxygen Saturation - - Inhaled Oxygen Concentration - - Weight - - Height - - Body Mass Index - - Plan of Treatment Health Maintenance Due Date Last Done Comments CT Colonography 1976 Colonoscopy 1976 Colorectal Cancer Screening 1976 Depression Screening 1976 FIT DNA/Cologuard 1976 FIT 1976 FOBT 1976 HIV Screening 1976 Lipid Panel 1976 SDOH Screening 1976 Sigmoidoscopy 1976 Pneumococcal Vaccine: Pediatrics (0 to 5 Years) and At-Risk Patients (6 to 49) Years) (1 of 2 - PCV) 1982 Alcohol/Substance Use Screening 1988 Family Planning (PISQ) 1991 Hepatitis C Screening 1994 Hepatitis A Vaccines (1 of 2 - Risk 2-dose series) 1995 Hepatitis B Vaccines (1 of 3 - 19+ 3-dose series) 1995 Dental Oral Exam 03/13/2023 09/12/2022 Dental Prophylaxis 03/13/2023 09/12/2022 Tobacco Screening 09/12/2023 09/12/2022 Dental X-Ray: Bitewings 09/13/2023 09/12/2022 COVID-19 Vaccine (4 - 2023-2 5 season) 2024 08/31/2021, 12/18/2020, 11/27/2020 Influenza Vaccine (#1) 2024 Dental X-Ray: Full Mouth 09/13/2025 09/12/2022 Zoster Vaccines (1 of 2) 2026 DTaP/Tdap/Td Vaccines (2 - T d or Tdap) 01/02/2029 01/02/2019 RSV Patients and Patients Aged 60 years or older (1 - 1-dose 75+ series) 2051 HIB Vaccines Aged Out No longer eligi ble based on patient's age to complete this topic HPV Vaccines Aged Out No longer eligi ble based on patient's age to complete this topic IPV Vaccines Aged Out No longer eligi ble based on patient's age to complete this topic Meningococcal Vaccine Aged Out No joann benny eligible based on patient's age to complete this topic RSV under 20 months Aged Out No longe r eligible based on patient's age to complete this topic Rotavirus Vaccines Aged Out No longer eligible based on patient's age to complete this topic Procedures Procedure Name Priority Date/Time Associated Diagnosis Comments PROPHYLAXIS - ADULT Routine 09/12/2022 1 0:00 AM EST DIAGNOSTIC - DIAGNOSTIC IMAGING - INTRAORAL - COMPREHENSIVE SERIES OF RADIOGRAPHIC IMAGES Routine 09/12/2022 10:00 AM EST COMPREHENSIVE ORAL EVALUATION - NEW OR ESTABLISHED PATIENT Routine 09/12/2022 9:00 AM EST from Last 3 Months or Most Recently Relevant to Health Maintenance Insurance [facility] MEDICAID STAND ADULT
--- OUTSIDE RECORDS SUMMARY | 2024-08-28 11:54 | XMS_ITS | Data Portability ---
Author Organization [facility] Address [address] [place] [address] Assessment No assessment recorded. Plan of Treatment Reminders Order Date Submit Date Provider Last Modified By Organization Details Last Modified Time Details Appointments None recorded. Lab lipid panel, serum 2017 018 tbalicki Not available 8 08:48:59 CMP, serum or plasma 2017 018 tbalicki Not available 8 08:48:59 vitamin D, 25-hydroxy , total, serum 2017 018 tbalicki Not available 8 08:48:59 CBC 2017 018 tbalicki Not available 8 08:48:59 Referral dermatolog ist referral 2017 018 tbalicki Sheryl Colon MD, [address], [place], [address], 8 14:14:21 gastroente rologist referral 2017 018 winston Vallecillo MD, [address] [place] [address] , [place] [address], [place], [address], 8 11:51:57 Procedures None recorded. Surgeries None recorded. Imaging electrocar diogram 2017 018 [email or web address] [facility], [address] [facility], [address], [place], [address], 8 16:40:53 Medication Orders Diflucan 150 mg tablet 2017 018 [id number], [address] [place], [id number], 8 12:28:45 Patient Targets Encounter Date Encounter Id Patient Goals Patient Target Last Modified By Organization Details Last Modified Time weight loss essurinder Not available 03/27 12:27:29 Patient Instructions Encounter Date Encounter Id Patient Instructions Last Modified By Organization Details Last Modified Time 2018 [id number] liver disease diet: care instructions essurinder Not available 2018 12:05:05 learning about diverticulosis and diverticulitis [email or web address] Not available 2018 12:05:05 Seek emergent ca re if abdominal pain recurs essurinder Not available 2018 12:26:40 healthy diet/exercise. 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 Referral for C andidiasis of skin Referring Physician: Ludmila Shrestha, Internal Medicine, Encounter Date: 2018 Quality Assurance Supervisor Body Referral for Diverticulitis diverticulitis with abscess Referring Physician: Ludmila Shrestha, Internal Medicine, Encounter Date: 2018 Results Created Date Observation Date Name Description Value Unit Range Abnormal Flag Note LastModifiedBy Organization Detail LastModifiedTime 03/27/20 18 2018 mundo powell am Rate & Rhythm Not Available [facility] [address] [place] [address], [phone], 2018 12:08:37 03/27/20 18 2018 mundo powell am QRS Not Available [facility] [address] [place] [address], [phone], 2018 12:08:37 03/27/20 18 2018 mundo powell am SC Interval Not Available [facility] [address] [place] [address], [phone], 2018 12:08:37 03/27/20 18 2018 elect rocar diogr am QRS Duration Not Available [facility] [address] [facility] [address], [place], [address], 2018 12:08:37 03/27/20 18 2018 elect rocar diogr am QT Interval Not Available [address], [place], [address], 2018 12:08:37 Result Notes None recorded. Problems Name Problem SNOMED Code Status Onset Date Resolution Date Notes Provider Name and Address Organization Details Recorded Time Essential hypertensi on 91633455 [facility] [place] [facility] 15:38:57 Gout 16796495 Active 2017 Christine Valadez [facility] 8 15:39:08 Sleep apnea 01794645 Active 2017 Camden Allyson [facility] 8 15:39:19 Obesity 186207381 Active 2017 Christinedebbi Valadez [facility] 8 15:39:29 Hyperchole sterolemia 47996484 Active 2017 Camden Allyson [facility] 8 15:39:38 Diverticul itis of colon 608311257 Active 2017 Ludmila Shrestha NP, [address] [place] [address], [phone], [facility] 8 12:04:24 Steatohepa titis 553964102 Active 2017 Ludmila Shrestha NP, [address] [place] [address], [phone], [facility] 8 12:22:52 Tubular adenoma 698418834 Active 2018 colon 10/2018 Ludmila Shrestha NP, [address] [place], [address], [facility] 9 08:43:02 Problem Notes None recorded. Procedures Surgical History Date Name Laterality Status Provider Name and Address Organization Details Recorded Time 11/23/19 19 colonoscopy completed Ludmila Shrestha NP, [address] [place], [address], [facility] 11/26/2018 08:43:26 Imaging Results None recorded. Procedure Notes None recorded. Medical Equipment None Reported. Allergies No known drug allergies Medications Name Sig Start Date Stop Date Status Note LastModified by Organization Details LastModified Time losartan 50 mg tablet take 1 tablet by mouth once daily 03/27 completed Not Available Not Available Not Available Diflucan 150 mg tablet Take 1 tablet every day by oral route. 2017 active Not Available Not Available Not Avai lable metronidazo le 500 mg tablet Take 1 tablet every 8 hours by oral route. active Not Available Not Available No t Available ciprofloxac in 500 mg tablet Take 1 tablet every 12 hours by oral route. active Not Available Not Available No t Available omeprazole 40 mg capsule,del ayed release take 1 capsule by mouth once daily active Not Available Not Available No t Available allopurinol 300 mg tablet 1 PO QD active Not Available Not Available Not Available pravastatin 20 mg tablet take 1 tablet by mouth once daily active Not Available Not Available No t Available levofloxaci n 750 mg tablet 03/27 completed Not Available Not Available Not Available losartan 100 mg tablet take 1 tablet by mouth once daily ; NEED APPOINTME NT FOR FURTHER REFILLS 2018 active Not Available Not Available Not Avai lable peg 3350 240 gram-electr olytes 22.72 gram-6.72 g-5.84 g powdr for soln active Not Available Not Available Not Available Vitals Date Recorded Body weight Body mass index (BMI) Body height Heart rate Oxygen saturation Oxygen saturation in Arterial blood by Pulse oximetry Systolic blood pressure Diastolic blood pressure Provider Name and Address Organization Details Last Updated DateTime 8 006364. 36 g 53 kg/m2 170.82 cm 105 /min 98 % 98 % 150 mm[Hg] 96 mm[Hg] Christine Valadez [facility] 8 11:47:43 Social History Question Answer Notes LastModified by Organizat ion Details LastModified Time Tobacco Smoking Status Former Smoker Not Available [facility] 06[facility]01/2020 03:36:24 What Was The Date Of Your Most Recent Tobacco Screening? 2018 [id number] Information not available 06/01/2020 Sex: Unknown Functional Status None recorded. Mental Status None recorded. Family History Nothing Reported. Medical History No medical history recorded. Past Encounters Encounter ID Performer Location Encounter Start Date Encounter Closed Date Diagnosis/Indication Diagnosis SNOMED-CT Code Diagnosis ICD10 Code Diagnosis Note [id number] Ludmila Shrestha NP, S [facility] [address] [facility],[place] [address] 2018 11:40:38 2018 16:40:52 Diverticulitis 994965856 K57.92 Steatosis of liver 11597 1007 K76.0 Hypercholesterolemia 136 41638 E78.00 Essential hypertension 41881600 I10 increase losartan to 100mg Obesity 874176915 E66.9 Atypical chest pain 1025 41472 R07.89 Candidiasis of skin 4988 3006 B37.2 Health Concerns Section Related Observation LastModified by Organization Detai ls LastModified Time None Recorded Concern Status LastModified by Organization Details LastModified Time None Recorded Advance Directives Directive None Recorded Payers Encounter Date Sequence Insurance Name Policy Number Policy Estrada Covered Member ID Estrada Member ID Guarantor Name [address] [place] [address] [id number] [facility] [id number] [facility] Notes Date Note Type Note Provider Name a nd Address Organization Details Recorded Time 2018 text/html Hospital f/u re: diverticulitis Has appt with Dr. 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
--- OUTSIDE RECORDS SUMMARY | 2024-08-28 11:55 | XMS_ITS | Clinical Summary ---
Author Organization [facility] ity Address [address] [place] [address] Care Team Providers Care Telephone Installer Name Role Phone Unavailable Primary Care Provider Unavailabl e Social History Tobacco Use Types Packs/Day Years Used Date Smoking Tobacco: Never Assessed Sex and Gender Information Value Date Recorded Sex Assigned at Not on file Gender Identity Not on file Sexual Orientation Not on file Plan of Treatment Health Maintenance Due Date Last Done Comments DTaP,Tdap,and Td Vaccines (1 - Tdap) 1995 Hepatitis B Vaccines (1 of 3 - 19+ 3-dose series) 1995 COVID-19 Vaccine (2023-2 5 season) 2024 Influenza Vaccine (#1) 2024 Cholesterol Screening (Lipid Panel) 05/25/2024 Colorectal Cancer Screening: Colonoscopy 05/25/2024 Depression Screening 05/25/2024 HIV Screening 05/25/2024 Hepatitis C Screening 05/25/2024 Social Influencers of Health Screening 05/25/2024 HIB Vaccines Aged Out No longer eligi ble based on patient's age to complete this topic HPV Vaccines Aged Out No longer eligi ble based on patient's age to complete this topic Hepatitis A Vaccines Aged Out No long er eligible based on patient's age to complete this topic IPV Vaccines Aged Out No longer eligi ble based on patient's age to complete this topic MMR Vaccines Aged Out No longer eligi ble based on patient's age to complete this topic Meningococcal ACWY Vaccine Aged Out N o longer eligible based on patient's age to complete this topic Pneumococcal Vaccine: Pediat rics (0 to 5 Years) and At-Risk Patients (6 to 64 Years) Aged Out No longer eligible b ased on patient's age to complete this topic RSV Immunization Patients Un tiffany 20 months Aged Out No longer eligible b ased on patient's age to complete this topic Varicella Vaccines Aged Out No longer eligible based on patient's age to complete this topic
== END 2024-08-28 09:44 | disposition home or self-care (01) ==
PROVIDERS: PCP Nurse Practitioner Family; Visit Provider Internal Medicine Endocrinology, Diabetes & Metabolism
DX: E66.01 Morbid (severe) obesity due to excess calories (principal)
CPT/HCPCS: 99204

== ENCOUNTER 2024-09-12 12:12 | Outpatient (REF) | payer OTHER, SELFPAY ==
--- OUTSIDE RECORDS SUMMARY | 2024-09-12 12:42 | XMS_ITS | Clinical Summary ---
Author Organization [facility] ity Address [address] [place] [address] Care Team Providers Care Building Coordinator Name Role Phone Unavailable Primary Care Provider Unavailabl e Social History Tobacco Use Types Packs/Day Years Used Date Smoking Tobacco: Never Assessed Sex and Gender Information Value Date Recorded Sex Assigned at Not on file Legal Sex Male 3:42 PM EDT Gender Identity Not on file Sexual Orientation Not on file Plan of Treatment Health Maintenance Due Date Last Done Comments DTaP,Tdap,and Td Vaccines (1 - Tdap) 1995 Hepatitis B Vaccines (1 of 3 - 19+ 3-dose series) 1995 COVID-19 Vaccine ( - 2023-2 5 season) 2024 Influenza Vaccine (#1) 2024 [...]
--- OUTSIDE RECORDS SUMMARY | 2024-09-12 12:42 | XMS_ITS | Data Portability ---
Author Organization [facility] Address [address] [place] [address] Assessment No assessment recorded. Plan of Treatment [...] tbalicki Sheryl Colon MD, [address], [place], [address], 8 14:14:21 gastroente rologist referral 2017 018 winston Vallecillo MD, [address] [place] [address] , [place] [address], [place], [address], 8 11:51:57 Procedures None recorded. Surgeries None recorded. Imaging electrocar diogram 2017 018 [email or web address] [facility], [address] [facility], [address], [place], [address], 8 16:40:53 Medication Orders Diflucan 150 mg tablet 2017 018 INTERFACE [id number], [address] [place], [id number], 8 12:28:45 Patient Targets Encounter Date Encounter [...] Not available 2018 12:27:19 Reason for Referral Cartographic Engineer Referral for C andidiasis of skin Referring Physician: Ludmila Shrestha, Internal Medicine, Encounter Date: 2018 Route Sales Delivery Driver Referral for Diverticulitis diverticulitis with abscess Referring Physician: Ludmila Shrestha, Internal Medicine, Encounter Date: 2018 Results Created Date Observation Date Name Description Value Unit Range Abnormal Flag Note LastModifiedBy Organization Detail LastModifiedTime 03/27/20 18 2018 mundo powell am Rate & Rhythm Not Available [facility] [address] [place] [address], [address], 2018 12:08:37 03/27/20 18 2018 mundo powell am QRS Not Available [facility] [address] [place] [address], [address], 2018 12:08:37 03/27/20 18 2018 mundo powell am UT Interval Not Available [facility] [address] [place] [address], [address], 2018 12:08:37 03/27/20 18 2018 elect rocar diogr am QRS Duration Not Available [facility] [address] [facility] [address], [place], [address], 2018 12:08:37 03/27/20 18 2018 elect rocar diogr am QT Interval Not Available [address], [place], [address], 2018 12:08:37 Result Notes None recorded. Problems Name Problem SNOMED Code Status Onset Date Resolution Date Notes Provider Name and Address Organization Details Recorded Time Essential hypertensi on 56451150 [facility] 15:[facility]:57 Gout 95249558 Active 2017 Christine Valadez [facility] 8 15:39:08 Sleep apnea 93607404 Active 2017 [place] Allyson [facility] 8 15:39:19 Obesity 112967126 Active 2017 Christinedebbi Valadez [facility] 8 15:39:29 Hyperchole sterolemia 20505613 Active 2017 [place] Allyson [facility] 8 15:39:38 Diverticul itis of colon 169702885 Active 2017 Ludmila Shrestha NP, S [address] [place] [address], [address], [facility], [place] 8 12:04:24 Steatohepa titis 717837286 Active 2017 Ludmila Shrestha NP, S [address] [place] [address], [address], [facility] 8 12:22:52 Tubular adenoma 053197800 Active 2018 colon 10/2018 Ludmila Shrestha NP, S [address] [place], [address], [facility], [place] 9 08:43:02 Problem Notes None recorded. Procedures Surgical History Date Name Laterality Status Provider Name and Address Organization Details Recorded Time 11/23/19 19 colonoscopy completed Ludmila Shrestha NP, S [address] [place], [address], [facility], [place] 11/26/2018 08:43:26 Imaging Results None [...] Address Organization Details Last Updated DateTime 8 199828. 36 g 53 kg/m2 170.82 cm 105 /min 98 % 98 % 150 mm[Hg] 96 mm[Hg] Christine Valadez [facility] 8 11:47:43 Social History Question Answer Notes LastModified by Organizat ion Details LastModified Time Tobacco Smoking Status Former Smoker Not Available [facility] 06/01/2020 03:36:24 What Was The Date Of Your Most Recent Tobacco Screening? 2018 [id number] Information not available 06/01/2020 Sex: Unknown Functional Status None recorded. Mental Status None recorded. Family History Nothing Reported. Medical History No medical history recorded. Past Encounters Encounter ID Performer Location Encounter Start Date Encounter Closed Date Diagnosis/Indication Diagnosis SNOMED-CT Code Diagnosis ICD10 Code Diagnosis Note [id number] Ludmila Shrestha NP, S [place] [facility] [address] [facility],[place] [address] 2018 11:40:38 2018 16:40:52 Diverticulitis 077382025 K57.92 Steatosis of liver 22173 1007 K76.0 Hypercholesterolemia 136 70977 E78.00 Essential hypertension 94325408 I10 increase losartan to 100mg Obesity 454232470 E66.9 Atypical chest pain 1025 05826 R07.89 Candidiasis of skin 4988 3006 B37.2 Health Concerns Section Related Observation LastModified by Organization Detai ls LastModified Time None Recorded Concern Status LastModified by Organization Details LastModified Time None Recorded Advance Directives Directive None Recorded Payers Encounter Date Sequence Insurance Name Policy Number Policy Estrada Covered Member ID Estrada Member ID Guarantor Name [address] [place] [address] [id number] [facility] [id number] [facility] [address] Notes Date Note Type Note Provider Name [...] neck, spreading Ludmila Shrestha NP, S [address] [facility], [place], [address], [facility], [place] 2018 12:32:29
--- OUTSIDE RECORDS SUMMARY | 2024-09-12 12:42 | XMS_ITS | Clinical Summary ---
Author Organization [employer] Address [address] [place] [address] [address] [place] [address] Care Team Providers Care Panel Lay Up Worker Name Role Phone Unavailable Primary Care [...] Panel 1976 SDOH Screening 1976 Sigmoidoscopy 1976 Alcohol/Substance Use Screening 1988 Family Planning (PISQ) 1991 Hepatitis C Screening 1994 Hepatitis A Vaccines (1 of 2 - Risk 2-dose series) 1995 Hepatitis B Vaccines (1 of 3 - 19+ 3-dose series) 1995 Pneumococcal Vaccine: Pediatrics (0 to 5 Years) and At-Risk Patients (6 to 49) Years) (1 of 2 - PCV) 1995 Dental Oral Exam 03/13/2023 09/12/2022 Dental [...] ADULT Routine 09/12/2022 1 0:00 AM EST INTRAORAL - COMPLETE SERIES OF RADIOGRAPHIC IMAGES Routine 09/12/2022 10:00 AM EST COMPREHENSIVE ORAL EVALUATION - NEW OR ESTABLISHED PATIENT Routine 09/12/2022 9:00 AM EST from Last 3 Months or Most Recently Relevant to Health Maintenance Insurance [facility] MEDICAID STAND ADULT
[2024-09-12 13:39] LABS: Creatinine, mg/dL 136.38
[2024-09-12 14:07] LABS: Creatinine, 24Hr Urine 2.3 G/Day (1.0-2.0); Total Volume 24 Hour Urine 1700 mL
== END 2024-09-12 12:13 | disposition home or self-care (01) ==
LOC: HO.10HDLNP 12:12
PROVIDERS: Visit Provider Internal Medicine Endocrinology, Diabetes & Metabolism
DX: E66.01 Morbid (severe) obesity due to excess calories (principal)
CPT/HCPCS: 82530; 82570

== ENCOUNTER 2024-09-18 08:49 | Outpatient (AMB) | payer OTHER, SELFPAY ==
[2024-09-18 08:56] VITALS: BMI 57.0
--- NOTE | 2024-09-18 08:56 | A.OFFVIS_ITS ---
VS Expanded 09/18/24 08:56 Height 5 ft 6 in Weight 353 lb 2.888 oz BMI 57.0 Intake Visit Reasons: Morbid (severe) obesity due to excess calories Allergies No Known Allergies Allergy (Verified 08/28/24 09:05) Nutrition Presentation Details: Pt presents for MNT for morbid obesity. Pt reports having started zepbound for almost a month, feeling good, has questions regarding med/d and cost. Pt was referred to MD to discuss this further. Food frequency fruits: 0-1/d beverages: diet beverages/water/some reg beverages dairy: 4+/d starches> 30/d vegetables: 2-3 x/wk pastries and similar> 4/d fried foods : 2-3-x/wk physical activity: working on walking during work breaks, working on increasing activity ETOH/SMoking- denies BS Monitoring Most Recent Diabetes Results: Cholesterol 141 mg/dL (<200) 05/22/24 HDL Cholesterol 42 mg/dL (>40) 05/22/24 Triglycerides 105 mg/dL (<150) 05/22/24 Creatinine 0.79 mg/dL (0.5-1.4) 05/22/24 Blood Urea Nitrogen 9 mg/dL (9-16) 05/22/24 Sodium 140 mmol/L (135-145) 05/22/24 Potassium 3.8 mmol/L (3.3-5.1) 05/22/24 Chloride 107 mmol/L (96-108) 05/22/24 Carbon Dioxide 27 mmol/L (22-29) 05/22/24 Calcium 9.0 mg/dL (8.4-10.2) 05/22/24 AST 40 U/L (5-37) H 05/22/24 ALT 49 U/L (0-40) H 05/22/24 Total Protein 6.8 g/dL (6.5-8.0) 05/22/24 Albumin 3.8 g/dL (3.5-5.0) 05/22/24 VVJ-Hqzlfvs-Tw.Jeor Equation Height: 5 ft 6 in Weight: 353 lb Resting Metabolic Rate: 2416.17 Calculated Activity Level: Mild Activity Calories Needed to Maintain Weight: 3322.23 Diagnosis Nutrition problem #1: excessive energy intake As related to (etiology) #1: diagnosis As evidenced by (sign/symptom) #1: high BMI (57 on 09/23) [facility] Medical History (Updated 03/27/24 @ 08:20 by Wily Becerra [facility]) Diverticulosis DDD (degenerative disc disease), lumbar Dyslipidemia Sleep apnea GERD (gastroesophageal reflux disease) Hypertension Hx of gout Osteoarthritis Bilateral hand numbness Surgical History History of esophagogastroduodenoscopy (EGD) Hx of colonoscopy History of appendectomy Family History Father No problems noted. Mother HTN (hypertension) Diabetes mellitus Maternal Grandmother Myocardial infarction Social History Household Members: Significant Other and Children Household Members Other:: Mother Housing: House Alcohol intake: current Alcohol intake frequency: holidays/special occasions only Alcohol type: hard liquor Patient Tobacco Use Status: Former Tobacco user e-Cigarette/Vaping Use: Never Used service: No Current occupational status: unemployed Cognitive needs: No Hearing needs: No Vision needs: No Assessment & Plan Assessment & Plan (1) Morbid obesity: Code(s): E66.01 - Morbid (severe) obesity due to excess calories Category: Medical Plan: Wt: 160 Kg ( 09/23 ) Est kcal needs as per MSJ: 3300 (40% carb, 30% protein/fat) Est fluid needs as per 25-30 ml/d: 4800 Est prot per day as per 1 g/kg bw: 160 Recommend fiber intake : 8-10 g per day and gradually increase to 25-28 g per day for women and 35-38 g for men or as tolerated Recommend sodium intake per day : less than 2300 mg Educated patient on: ( R = reviewed V = verbalizes understanding N/R = needs review N/A = not applicable * Food sources of carbohydrate, adequate serving sizes and its role in various health conditions: R * Differences between complex carbohydrates a simple carbohydrates, role of fiber in diet: R * Lean protein sources of foods: R * Differences between types of fats and role in diet (mono on saturated fat fatty acids, saturated fatty acids, trans fats): R V N/R * Food sources of sodium in salt and healthy modifications for heart health in kidney health: R V R/V * Vitamins and minerals: R V N/R * Healthy plate method concept: R V N/R * Physical activity: Benefits a precaution: R * Patient Instructions: Practice mindful eating Reduce on sugars (pastries/cookies), choose fiber rich foods (fruits, non starchy vegetables) following healthy plate method Next visit - review carbs (goal less than 330 g per day choosing complex carbs) Coding Level of Care Code Nutr Indiv Intake (37519) Diagnoses Morbid obesity E66.01 Time Spent (min) 30
--- OUTSIDE RECORDS SUMMARY | 2024-09-18 09:19 | XMS_ITS | Clinical Summary ---
Author Organization [employer] Address [address] [place] [address] [address] [place] [address] Care Team Providers Care Chief Technical Officer Name Role Phone Unavailable Primary Care Provider [...] Most Recently Relevant to Health Maintenance Insurance [facility] MEDICAID STAND ADULT
--- OUTSIDE RECORDS SUMMARY | 2024-09-18 09:19 | XMS_ITS | Clinical Summary ---
Author Organization [facility] ity Address [address] [place] [address] Care Team Providers Care Senior Program Manager Name Role Phone Unavailable Primary Care Provider [...] patient's age to complete this topic Meningococcal B Vacine Aged Out No lo nger eligible based on patient's age to complete [...]
--- OUTSIDE RECORDS SUMMARY | 2024-09-18 09:19 | XMS_ITS | Data Portability ---
Author Organization [facility] Address [address] [place] [address] Assessment No assessment recorded. Plan of Treatment [...] tbalicki Sheryl Colon MD, [address], [place], [address], 8 14:14:21 gastroente rologist referral 2017 018 winston Vallecillo MD, [address] [place] [address] , [place] [address], [place], [address], 8 11:51:57 Procedures None recorded. Surgeries None recorded. Imaging electrocar diogram 2017 018 [email or web address] [facility], [address] [facility], [address], [place], [address], 8 16:40:53 Medication Orders Diflucan 150 mg tablet 2017 018 INTERFACE [id number], [address] [place], [id number], 8 12:28:45 Patient Targets Encounter Date Encounter [...] Not available 2018 12:27:19 Reason for Referral Delivery Technician Referral for C andidiasis of skin Referring Physician: Ludmila Shrestha, Internal Medicine, Encounter Date: 2018 Accounts Receivable Representative Referral for Diverticulitis diverticulitis with abscess Referring Physician: Ludmila Shrestha, Internal Medicine, Encounter Date: 2018 Results Created Date Observation Date Name Description Value Unit Range Abnormal Flag Note LastModifiedBy Organization Detail LastModifiedTime 03/27/20 18 2018 mundo powell am Rate & Rhythm Not Available [facility] [address] [place] [address], [address], 2018 12:08:37 03/27/20 18 2018 mundo powell am QRS Not Available [facility] [address] [place] [address], [address], 2018 12:08:37 03/27/20 18 2018 mundo powell am [place] Interval Not Available [facility] [address] [place] [address], [address], 2018 12:08:37 03/27/20 18 2018 elect rocar diogr am QRS Duration Not Available [facility] [address] [facility] [address], [place], [address], 2018 12:08:37 03/27/20 18 2018 elect rocar diogr am QT Interval Not Available [address], [place], [address], 2018 12:08:37 Result Notes None recorded. Problems Name Problem SNOMED Code Status Onset Date Resolution Date Notes Provider Name and Address Organization Details Recorded Time Essential hypertensi on 94485609 [facility] 8 15:38:57 Gout 55070949 Active 2017 Christine Valadez [facility] 8 15:39:08 Sleep apnea 88004740 Active 2017 [place] Allyson [facility] 8 15:39:19 Obesity 464733255 Active 2017 Christinedebbi Valadez [facility] 8 15:39:29 Hyperchole sterolemia 91545715 Active 2017 [place] Allyson [facility] 8 15:39:38 Diverticul itis of colon 565551890 Active 2017 Ludmila Shrestha NP, S [address] [place] [address], [address], [facility] Internal [facility] 8 12:04:24 Steatohepa titis 599043897 Active 2017 Ludmila Shrestha NP, S [address] [place] [address], [address], [facility] 8 12:22:52 Tubular adenoma 845704808 Active 2018 colon 10/2018 Ludmila Shrestha NP, S [address] [place], [address], [facility] 9 08:43:02 Problem Notes None recorded. Procedures Surgical History Date Name Laterality Status Provider Name and Address Organization Details Recorded Time 11/23/19 19 colonoscopy completed Ludmila Shrestha NP, S [address] [place], [address], [facility] 11/26/2018 08:43:26 [...] Address Organization Details Last Updated DateTime 8 356929. 36 g 53 kg/m2 170.82 cm 105 /min 98 % 98 % 150 mm[Hg] 96 mm[Hg] Christine Valadez [facility] 8 11:47:43 Social History Question Answer Notes LastModified by Organizat ion Details LastModified Time Tobacco Smoking Status Former Smoker Not Available [facility] 06/01/2020 03:36:24 What Was The Date Of Your Most Recent Tobacco Screening? 2018 [id number] Information not available 06/01/2020 Sex: Unknown Functional Status None recorded. Mental Status None recorded. Family History Nothing Reported. Medical History No medical history recorded. Past Encounters Encounter ID Performer Location Encounter Start Date Encounter Closed Date Diagnosis/Indication Diagnosis SNOMED-CT Code Diagnosis ICD10 Code Diagnosis Note [id number] Ludmila Shrestha NP, S [place] [address] [facility],[place] [address] 2018 11:40:38 2018 16:40:52 Diverticulitis 192022830 K57.92 Steatosis of liver 10213 1007 K76.0 Hypercholesterolemia 136 33825 E78.00 Essential hypertension 44423053 I10 increase losartan to 100mg Obesity 016861947 E66.9 Atypical chest pain 1025 48122 R07.89 Candidiasis of skin 4988 3006 B37.2 Health Concerns Section Related Observation LastModified by Organization Detai ls LastModified Time None Recorded Concern Status LastModified by Organization Details LastModified Time None Recorded Advance Directives Directive None Recorded Payers Encounter Date Sequence Insurance Name Policy Number Policy Estrada Covered Member ID Estrada Member ID Guarantor Name [address] [place] [address] [id number] [facility] [id number] [facility] Notes Date Note Type Note Provider Name [...] neck, spreading Ludmila Shrestha NP, S [address] [facility], [place], [address], [facility] 2018 12:32:29
[2024-09-18 09:58] VITALS: BMI 57.0
== END 2024-09-18 09:33 | disposition home or self-care (01) ==
PROVIDERS: PCP Nurse Practitioner Family; Visit Provider Dietitian, Registered
DX: E66.01 Morbid (severe) obesity due to excess calories (principal)

== ENCOUNTER → 2024-09-18 08:49 | Outpatient (BNVA) | payer OTHER, SELFPAY | PROVIDERS: PCP Nurse Practitioner Family; Visit Provider Dietitian, Registered | DX: E66.01 Morbid (severe) obesity due to excess calories (principal); Z68.43 Body mass index [BMI] 50.0-59.9, adult; Z71.3 Dietary counseling and surveillance | CPT/HCPCS: 97802 ==

== ENCOUNTER 2024-09-18 10:11 | Outpatient (REF) | payer OTHER, SELFPAY ==
--- OUTSIDE RECORDS SUMMARY | 2024-09-18 11:18 | XMS_ITS | Clinical Summary ---
Author Organization [employer] Address [address] [place] [address] [address] [place] [address] Care Team Providers Care Photographic Process Screen Maker Name Role Phone Unavailable Primary Care Provider [...] Most Recently Relevant to Health Maintenance Insurance [facility] MEDICAID STAND ADULT
--- OUTSIDE RECORDS SUMMARY | 2024-09-18 11:18 | XMS_ITS | Clinical Summary ---
Author Organization [facility] ity Address [address] [place] [address] Care Team Providers Care Upholstery Sewer Name Role Phone Unavailable Primary Care Provider [...]
[2024-09-19 08:29] LABS: HBS Num1 0.33 mIU/mL (0-7.99); HBc Num1 0.18 S/CO (0.00-0.79); Hepatitis B Core Antibody Nonreactive (Nonreactive); Hepatitis B Surface Antigen Negative (Negative); ~HepC Num1 0.08 S/CO (0.00-0.79); ~Hepatitis A Antibody IgM Nonreactive (Nonreactive); ~Hepatitis B Surface Antibody NONREACTIVE (Nonreactive); ~Hepatitis C Antibody Nonreactive (Nonreactive)
[2024-09-25 09:08] LABS: FIB-ALT 43 U/L (9-46); FIB-Alpha-2-Macroglobulin 201 mg/dL (106-279); FIB-Apolipoprotein A1 136 mg/dL (94-176); FIB-GGT 26 U/L (3-95); FIB-Haptoglobin 129 mg/dL (43-212); FIB-Total Bilirubin 0.6 mg/dL (0.2-1.2); Liver Fibrosis Score 0.25; Liver Fibrosis Stage F0-F1; Nec Inflam Act Grade A0-A1; Nec Inflam Act Score 0.23; Reference ID 5356600
== END 2024-09-18 10:12 | disposition home or self-care (01) ==
LOC: HO.HMGCLDS 10:11
PROVIDERS: PCP Nurse Practitioner Family; Visit Provider Nurse Practitioner Family
DX: R74.8 Abnormal levels of other serum enzymes (principal)
CPT/HCPCS: 36415; 81596; 86704; 86706; 86709; 86803; 87340

== ENCOUNTER 2024-09-24 08:18 | Outpatient (AMB) | payer OTHER, SELFPAY ==
[2024-09-24 08:19] VITALS: BP 132/76; PULSE 95; RESP 17; TEMP 36.7; BMI 57.5
--- NOTE | 2024-09-24 08:19 | A.OFFPC_ITS ---
Vital Signs 09/24/24 08:19 Height 5 ft 6 in Weight 356 lb 8 oz BMI 57.5 BP 132/76 Blood Pressure Location Rt brachial Position Sitting Respiration 17 Pulse 95 Pulse Source Pulse Oximeter Temp 98.1 F Temp Source Oral Intake Visit Reasons: 6m follow up Intake Note: Pt is here today for his 6 month follow up. Allergies No Known Allergies Allergy (Verified 09/24/24 08:46) Medication List - Last Reconciled 09/24/24 by LYDIA Zhang- albuterol sulfate 90 mcg/actuation 2 puffs inhalation Q6H PRN colchicine 0.6 mg PO BID hydrochlorothiazide 12.5 mg PO QAM losartan 100 mg PO DAILY 90 days tirzepatide (weight loss) (Zepbound) 2.5 mg (0.5 mL) subcut QWEEK 4 weeks Tobacco use date assessed: 09/24/24 Dental Screening Dental Screen Date: 12/10/23 Did you have a dental visit in the last 12 months?: Yes Did you have a dental problem in the last 6 months where you did not have access to dental care?: No Was dental information given to patient?: Patient has dentist HPI 6m follow up HPI Details Chief Complaint The patient presents for management of morbid obesity and reports bilateral flank discomfort. History of Present Illness The patient is a 49-year-old male presenting for follow-up of morbid obesity and bilateral flank discomfort. For obesity management, he is engaging with endocrinology services and has been prescribed a medication contributing to a weight loss of 7 pounds recently. Concurrently, the patient has been experiencing bilateral flank discomfort predominantly in the morning. He denies any hematuria, fever, nausea, vomiting, chest pain, shortness of breath, or past kidney stones. A urinalysis and ultrasound have been recommended to explore potential causes, although the discomfort might be musculoskeletal in nature. Social History - No specific social determinants discus sed. Health Maintenance - Recent implementation of medication fo r weight management in morbid obesity. - Anticipated renal ultrasound and urina lysis for flank discomfort evaluation. Review of Systems - Respiratory: Denies shortness of breat h. - Renal/Genitourinary: Denies hematuria. - Constitutional: Denies fever, chills. Physical Exam General: Cooperative, healthy appearing, comfortable, no acute distress and well developed Orientation: Patient oriented x3 Limitations: No limitations Head: Normal to inspection Ears: Hearing grossly normal bilaterally Nose: Normal external nose present Face and sinus: Normal facial exam Eyes: Appearance normal, both eyes and all related structures Neck: Normal visual inspection and Yes full ROM Respiratory: Normal respiratory effort and able to speak in complete sentences. Clear to auscultation bilaterally Cardiovascular: Regular rate and rhythm. Normal S1 and S2 GI: Normal to inspection. Soft to palpation and nontender gu: no CVA tenderness noted bilat Skin: No rashes or lesions noted Neuro: Patient oriented x3 Extremities: Normal to inspection Results - Labs/tests planned: Urinalysis ordered . - Imaging/tests planned: Renal ultrasoun d recommended. Plan The management of the patient's morbid obesity will continue with endocrinology oversight, and the current medication regimen has been successful in promoting weight loss. Attention is also given to the patient's bilateral flank discomfort, with plans for further diagnostic testing, including renal ultrasound and urinalysis, to rule out renal pathology. The absence of red flags suggests a possible musculoskeletal origin, but this will be confirmed following diagnostic evaluation. Discussion Notes During the consultation, we discussed the importance of continuing with the current medication for weight management, given the positive results observed. I highlighted the plan to conduct a renal ultrasound and urinalysis to further investigate the patient's flank discomfort and reassured that these tests would help discern possible renal factors. I also addressed the possibility of the discomfort being musculoskeletal in nature should renal tests return negative. Follow-up will be arranged based on the results of these evaluations. Patient Instructions - Continue current medication as prescri bed for weight management. - Await further instructions following t he completion of renal ultrasound and urinalysis. - Monitor for any new symptoms such as h ematuria or fever, and notify your healthcare provider should these occur. [facility] Medical History (Updated 09/24/24 @ 08:34 by Wily Becerra, [facility]) Diverticulosis DDD (degenerative disc disease), lumbar Dyslipidemia Sleep apnea GERD (gastroesophageal reflux disease) Hypertension Hx of gout Osteoarthritis Bilateral hand numbness Surgical History History of esophagogastroduodenoscopy (EGD) Hx of colonoscopy History of appendectomy Family History Father No problems noted. Mother HTN (hypertension) Diabetes mellitus Maternal Grandmother Myocardial infarction Social History Household Members: Significant Other and Children Household Members Other:: Mother Housing: House Alcohol intake: current Alcohol intake frequency: holidays/special occasions only Alcohol type: hard liquor Patient Tobacco Use Status: Former Tobacco user e-Cigarette/Vaping Use: Never Used service: No Current occupational status: unemployed Cognitive needs: No Hearing needs: No Vision needs: No Questionnaire PHQ-9 Over the last 2 weeks, how often have you been bothered by any of the following problems? 1. Little interest or pleasure in doing things: not at all 2. Feeling down, depressed, or hopeless: not at all 3. Trouble falling or staying asleep, or sleeping too much: not at all 4. Feeling tired or having little energy: not at all 5. Poor appetite or overeating: not at all 6. Feeling bad about yourself - or that you are a failure or have let yourself or your family down: not at all 7. Trouble concentrating on things, such as reading the newspaper or watching television: not at all 8. Moving or speaking so slowly that other people could have noticed. Or the opposite - being so fidgety or restless that you have been moving around a lot more than usual: not at all 9. Thoughts that you would be better off or of hurting yourself in some way: not at all Total score: 0 Depression Screening Interpretation: Negative Depression Screening Done: Yes 83413 - PHQ-9 Billing: Yes Source: Developed by Drs. Norberto Cruz, Rosalia Alcocer, Farhat Diaz and colleagues, with an educational rajwinder from [employer]. Thrive Questionnaire Date Thrive assessed: 09/24/24 I am a: Patient What is your living situation today?: I have a steady place to live Within the past 12 months, did the food you bought not last and you didn't have the money to get more?: I choose not to answer this question Within the past 12 months, did you worry whether your food would run out before you got money to buy more?: I choose not to answer this question Do you have trouble paying for medicines?: No Do you have trouble getting transportation to medical appointments?: No Do you have trouble paying your heating and electricity bill?: No Do you have trouble taking care of your child, family member or friend?: No Do you have trouble with day-to-day activities such as bathing, preparing meals, shopping, managing finances, etc.?: No Are you currently unemployed and looking for a job?: No Are you interested in more education?: No Please select the resources that you would like help with: None Currently or been in a relationship where the following occur: No concerns reported THRIVE Score: 0 AUDIT C Alcohol Use Questionnaire (AUDIT-C) 1. How often do you have a drink containing alcohol?: Monthly or less 2. How many drinks containing alcohol do you have on a typical day when you are drinking?: 3 or 4 3. How often do you have six or more drinks on one occasion?: Never Total Score: 2 Score Reviewed/Action Taken: Yes ANSHUL-7 AMB Questionnaire ANSHUL-7 Date ANSHUL - 7 assessed: 09/24/24 Feeling nervous, anxious, or on edge: 0 = Not at all Not being able to stop or control worryin = Not at all Worrying too much about different things: 0 = Not at all Trouble relaxin = Not at all Being so restless that it is hard to sit still: 0 = Not at all Becoming easily annoyed or irritable: 0 = Not at all Feeling afraid as if something awful might happen: 0 = Not at all Total ANSHUL-7 score (0-4 normal; 5-9 mild; 10-14 moderate; 15-21 severe): 0 Source: Developed by Drs. Norberto Cruz, Rosalia Alcocer, Farhat Diaz and colleagues, with an educational rajwinder from [employer]. ANSHUL-7 Assessment Billing ANSHUL-7 Assessment Tool: ANSHUL-7 Assessment 63171 Physical exam (Primary Care) Vital Signs: Last Vital Signs Temp 98.1 F 09/24/24 08:19 Pulse 95 09/24/24 08:19 Resp 17 09/24/24 08:19 BP 132/76 09/24/24 08:19 BMI result Body Mass Index 57.5 Tobacco/Smoking Status: Tobacco use Status Tobacco use date assessed 09/24/24 09/24/24 08:23 Patient Tobacco Use Status Former Tobacco user 09/24/24 08:23 e-Cigarette/Vaping Use Never Used 09/24/24 08:23 PHQ-9: PHQ-9 Score PHQ-9: Total score 0 09/24/24 08:23 Depression Screening Interpretation: Negative Thrive Assessment: Date of Thrive Assessment Date Thrive assessed 09/24/24 09/24/24 08:23 Currently or been in a relationship where the following occur: No concerns reported Coding Level of Care Code Est Pt Level 3 (72989) Diagnoses Bilateral flank pain R10.9 Morbid obesity E66.01 Additional Codes ANSHUL-7 Assessment Billing - ANSHUL-7 Assessment Tool: ANSHUL-7 Assessment 67671 ([id number]) PHQ-9 - 85716 - PHQ-9 Billing: Yes ([id number]) Assessment & Plan Assessment & Plan (1) Bilateral flank pain: Code(s): R10.9 - Unspecified abdominal pain Category: Medical (2) Morbid obesity: Code(s): E66.01 - Morbid (severe) obesity due to excess calories Category: Medical Plan . Orders: Orders US retroperitoneal comp Today R10.9 - Unspecified abdominal pain UA CC w/rflx Micro + Cult Today R10.9 - Unspecified abdominal pain
--- OUTSIDE RECORDS SUMMARY | 2024-09-24 08:41 | XMS_ITS | Clinical Summary ---
Author Organization [facility] ity Address [address] [place] [address] Care Team Providers Care Irrigation Installation Specialist Name Role Phone Unavailable Primary Care Provider [...]
--- OUTSIDE RECORDS SUMMARY | 2024-09-24 08:41 | XMS_ITS | Clinical Summary ---
Author Organization [employer] Address [address] [place] [address] [address] [place] [address] Care Team Providers Care Tare Worker Name Role Phone Unavailable Primary Care [...] Recently Relevant to Health Maintenance Insurance [facility] MEDICAID STAND ADULT
== END 2024-09-24 08:51 | disposition home or self-care (01) ==
PROVIDERS: PCP Nurse Practitioner Family; Visit Provider Nurse Practitioner Family
DX: R10.9 Unspecified abdominal pain (principal); E66.01 Morbid (severe) obesity due to excess calories; Z68.43 Body mass index [BMI] 50.0-59.9, adult

== ENCOUNTER 2024-09-24 08:18 | Outpatient (REF) | payer OTHER, SELFPAY ==
--- OUTSIDE RECORDS SUMMARY | 2024-09-24 09:19 | XMS_ITS | Data Portability ---
Author Organization [facility] Address [address] [place] [address] Assessment No assessment recorded. Plan of Treatment [...] tbalicki Sheryl Colon MD, [address], [place], [address], 8 14:14:21 gastroente rologist referral 2017 018 winston Vallecillo MD, [address] [place] [address] , [place] [address], [place], [address], 8 11:51:57 Procedures None recorded. Surgeries None recorded. Imaging electrocar diogram 2017 018 [facility], [address] [facility], [address], [place], [address], 8 16:40:53 Medication Orders Diflucan 150 mg tablet 2017 018 [id number], [address] [place], [id number], 8 12:28:45 Patient Targets Encounter Date Encounter [...] Not available 2018 12:27:19 Reason for Referral Craft Coordinator Referral for C andidiasis of skin Referring Physician: Ludmila Shrestha, Internal Medicine, Encounter Date: 2018 Greaser Operator Referral for Diverticulitis diverticulitis with abscess Referring Physician: Ludmila Shrestha, Internal Medicine, Encounter Date: 2018 Results Created Date Observation Date Name Description Value Unit Range Abnormal Flag Note LastModifiedBy Organization Detail LastModifiedTime 03/27/20 18 2018 mundo powell am Rate & Rhythm Not Available [facility] [address] [place] [address], [phone], 2018 12:08:37 03/27/20 18 2018 mundo powell am QRS Not Available [facility] [address] [place] [address], [phone], 2018 12:08:37 03/27/20 18 2018 mundo powell am MT Interval Not Available [facility] [address] [place] [address], [phone], 2018 12:08:37 03/27/20 18 2018 elect rocar diogr am QRS Duration Not Available [facility] [address] [facility] [address], [place], [address], 2018 12:08:37 03/27/20 18 2018 elect rocar diogr am QT Interval Not Available [address], [place], [address], 2018 12:08:37 Result Notes None recorded. Problems Name Problem SNOMED Code Status Onset Date Resolution Date Notes Provider Name and Address Organization Details Recorded Time Essential hypertensi on 85035851 [facility] 15:[facility]:57 Gout 13999487 Active 2017 [facility] 8 15:39:08 Sleep apnea 30487680 Active 2017 [place] 8 15:39:19 Obesity 301570677 Active 2017 [facility] 8 15:39:29 Hyperchole sterolemia 03171204 Active 2017 [place] [facility] 8 15:39:38 Diverticul itis of colon 534115655 Active 2017 Ludmila Shrestha NP, S [address] [place] [address], [phone], [facility] 8 12:04:24 Steatohepa titis 009662015 Active 2017 Ludmila Shrestha NP, S [address] [place] [address], [phone], [facility] 8 12:22:52 Tubular adenoma 281438350 Active 2018 colon 10/2018 Ludmila Shrestha NP, S [address] [place], [address], [facility] 9 08:43:02 Problem Notes None recorded. Procedures Surgical History Date Name Laterality Status Provider Name and Address Organization Details Recorded Time 11/23/19 19 colonoscopy completed Ludmila Shrestha NP, S [address] [place], [address], [facility] 11/26/2018 08:43:26 Imaging [...] Address Organization Details Last Updated DateTime 8 019869. 36 g 53 kg/m2 170.82 cm 105 /min 98 % 98 % 150 mm[Hg] 96 mm[Hg] Christine Valadez [facility] 8 11:47:43 Social History Question Answer Notes LastModified by Organizat ion Details LastModified Time Tobacco Smoking Status Former Smoker Not Available [facility] 06/01/2020 03:36:24 What Was The Date Of Your Most Recent Tobacco Screening? 2018 [id number] Information not available 06/01/2020 Sex: Unknown Functional Status None recorded. Mental Status None recorded. Family History Nothing Reported. Medical History No medical history recorded. Past Encounters Encounter ID Performer Location Encounter Start Date Encounter Closed Date Diagnosis/Indication Diagnosis SNOMED-CT Code Diagnosis ICD10 Code Diagnosis Note [id number] Ludmila Shrestha NP, S [facility] [address] [facility],[place] [address] 2018 11:40:38 2018 16:40:52 Diverticulitis 411207976 K57.92 Steatosis of liver 86302 1007 K76.0 Hypercholesterolemia 136 15551 E78.00 Essential hypertension 75313641 I10 increase losartan to 100mg Obesity 903847411 E66.9 Atypical chest pain 1025 19385 R07.89 Candidiasis of skin 4988 3006 B37.2 Health Concerns Section Related Observation LastModified by Organization Detai ls LastModified Time None Recorded Concern Status LastModified by Organization Details LastModified Time None Recorded Advance Directives Directive None Recorded Payers Encounter Date Sequence Insurance Name Policy Number Policy Estrada Covered Member ID Estrada Member ID Guarantor Name [address] [place] [address] [id number] [facility] [id number] [facility] Notes Date Note Type Note Provider [...] neck, spreading Ludmila Shrestha NP, [address] [facility], [place], [address], [facility] 2018 12:32:29
--- OUTSIDE RECORDS SUMMARY | 2024-09-24 09:19 | XMS_ITS | Clinical Summary ---
Author Organization [facility] ity Address [address] [place] [address] Care Team Providers Care Rn Ent Name Role Phone Unavailable Primary Care Provider [...]
--- OUTSIDE RECORDS SUMMARY | 2024-09-24 09:19 | XMS_ITS | Clinical Summary ---
Author Organization [employer] Address [address] [place] [address] [address] [place] [address] Care Team Providers Care Tank Setter Helper Name Role Phone Unavailable Primary Care Provider [...] Most Recently Relevant to Health Maintenance Insurance [facility] MEDICAID STAND ADULT
[2024-09-24 13:37] LABS: Appearance Urine Turbid; Color Urine Dark Yellow; Glucose Urine UA Negative (Negative); Leukocyte Esterase Urine Negative (Negative); Nitrite Urine Negative (Negative); PH 5.5 (5.0-9.0); Specific Gravity - Urine >= 1.030 (1.005-1.025); Urine Blood Negative (Negative); Urine Ketones Trace mg/dL (Negative); Urine Protein Trace mg/dL (Neg-Trace)
== END 2024-09-24 08:19 | disposition home or self-care (01) ==
LOC: HO.HMGCLDS 08:18
PROVIDERS: PCP Nurse Practitioner Family; Visit Provider Nurse Practitioner Family
DX: R10.9 Unspecified abdominal pain (principal); E66.01 Morbid (severe) obesity due to excess calories; Z68.43 Body mass index [BMI] 50.0-59.9, adult
CPT/HCPCS: 81003; 96127

== ENCOUNTER 2024-09-26 10:10 | Outpatient (AMB) | payer OTHER, SELFPAY ==
--- NOTE | 2024-09-26 08:09 | A.OFFVIS_ITS ---
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 This is a f/u visit after seeing Dr. Costa last month at which time he was started on Zepbound 2.5mg vials through the way pay system. ([employer]) Patient reports he has gained 60 pounds over the past year but has been overweight since age 14. His weight is down 3 pounds over the past week since starting the medications. Side effects to Zepbound: mild constipation Past attempts at weight loss: Exercise, keto diet, weight watchers, protein shakes. He was in the bariatric program in [place] but has been on pause for this. He has not been on weight loss medications in the past. He had been prescribed Wegovy by his primary care provider but this was not covered He has a history of lumbar disc disease. No thyroid disease and add a normal TSH 05/22. He has no symptom of Alisha syndrome. He does not have diabetes. His mother and maternal grandmother have diabetes. Diet he is following sense of well meal plan in trying to reduce his portions. He met with a wellness spa manager this month to go for weight loss strategies. He typically works out several times per week has not done so over the past few weeks as he has been planning a vacation in his been busy. [facility] Medical History (Updated 09/24/24 @ 08:34 by Wily Becerra, [facility]) Diverticulosis DDD (degenerative disc disease), lumbar Dyslipidemia Sleep apnea GERD (gastroesophageal reflux disease) Hypertension Hx of gout Osteoarthritis Bilateral hand numbness Surgical History History of esophagogastroduodenoscopy (EGD) Hx of colonoscopy History of appendectomy Family History Father No problems noted. Mother HTN (hypertension) Diabetes mellitus Maternal Grandmother Myocardial infarction Social History Household Members: Significant Other and Children Household Members Other:: Mother Housing: House Alcohol intake: current Alcohol intake frequency: holidays/special occasions only Alcohol type: hard liquor Patient Tobacco Use Status: Former Tobacco user e-Cigarette/Vaping Use: Never Used service: No Current occupational status: unemployed Cognitive needs: No Hearing needs: No Vision needs: No Physical Exam Vital Signs: BMI result Body Mass Index 58.4 Const Other: Absence of Cushingoid features. Absence of acromegalic features. Heart S1 S2, Reg R/R. No M/R G. Skin exam reveals absence of vitiligo or acanthosis nigricans. No edema Assessment & Plan Assessment & Plan (1) Morbid obesity: Code(s): E66.01 - Morbid (severe) obesity due to excess calories Category: Medical Plan: 49 Year old male obesity and a family history of diabetes in his mother and grandmother. He was started on set bound vials through the way pay program 3 weeks ago and has lost a lb a week over the past 3 weeks. He does have some constipation. He will continue at the current dose and next month we will most likely need an increase to the next dose. He was counseled of the FX of GLP 1/GI P 1. He was increase his water consumption and fiber to avoid constipation which occasionally could lead to bowel obstruction. He met with nutrition this week and he will incorporate changes into his diet attempt to increase his exercise. He will plan to purchased the learn method for weight control which is a w orkbook that reviews lifestyle, exercises, attitudes, relationships and nutrition where a holistic approach to weight reduction. He will be seen monthly for the next 6 months and can then submit prior authorization for weight loss medication. I advised patient after the 6 months we will send a prescription who has regular pharmacy for his up lb and if not covered we can write an appeal for this. Patient is at high-risk for the development of diabetes and weight loss is in his best interest. Patient Instructions: Follow dietary recommendations by wellness spa manager Begin reading the learn program for weight management Coding Level of Care Code Est Pt Level 4 (30780) Complex EM visit Add On G2211 Diagnoses Morbid obesity E66.01 Time Spent (min) 30 Comment Time spent reviewing labs/provider notes, face to face, chart doc
[2024-09-26 10:22] VITALS: BMI 58.4
--- OUTSIDE RECORDS SUMMARY | 2024-09-26 11:19 | XMS_ITS | Clinical Summary ---
Author Organization [employer] Address [address] [place] [address] [address] [place] [address] Care Team Providers Care Quotation Checker Name Role Phone Unavailable Primary Care Provider [...] Most Recently Relevant to Health Maintenance Insurance [facility] MEDICAID STAND ADULT
--- OUTSIDE RECORDS SUMMARY | 2024-09-26 11:19 | XMS_ITS | Clinical Summary ---
Author Organization [facility] ity Address [address] [place] [address] Care Team Providers Care Offset Lithographic Press Operator Name Role Phone Unavailable Primary Care Provider [...]
--- OUTSIDE RECORDS SUMMARY | 2024-09-26 11:19 | XMS_ITS | Data Portability ---
Author Organization [facility] Address [address] [place] [address] Assessment No assessment recorded. Plan of Treatment [...] tbalicki Sheryl Colon MD, [address], [place], [address], 8 14:14:21 gastroente rologist referral 2017 018 winston Vallecillo MD, [address] [place] [address] , [place] [address], [place], [address], 8 11:51:57 Procedures None recorded. Surgeries None recorded. 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 Referral for Diverticulitis diverticulitis with abscess Referring Physician: Ludmila Shrestha, Internal Medicine, Encounter Date: 2018 Results Created Date Observation Date Name Description Value Unit Range Abnormal Flag Note LastModifiedBy Organization Detail LastModifiedTime 03/27/20 18 2018 mundo powell am Rate & Rhythm Not Available [facility] [address] [place] [address], [address], 2018 12:08:37 03/27/20 18 2018 mundo powell am QRS Not Available [facility] [address] [place] [address], [address], 2018 12:08:37 03/27/20 18 2018 mundo powell am [place] Interval Not Available [facility] [address] [place] [address], [address], 2018 12:08:37 03/27/20 18 2018 elect rocar diogr am QRS Duration Not Available [facility] [address] [facility] [address], [place], [address], 2018 12:08:37 03/27/20 18 2018 elect rocar diogr am QT Interval Not Available [address], [place], [address], 2018 12:08:37 Result Notes None recorded. Problems Name Problem SNOMED Code Status Onset Date Resolution Date Notes Provider Name and Address Organization Details Recorded Time Essential hypertensi on 35234650 [facility] 15:[facility]:57 Gout 70955823 Active 2017 Christine Valadez [facility] 8 15:39:08 Sleep apnea 96918950 Active 2017 [place] Allyson [facility] 8 15:39:19 Obesity 677359233 Active 2017 Christinedebbi Valadez [facility] 8 15:39:29 Hyperchole sterolemia 63443588 Active 2017 [place] Allyson [facility] 8 15:39:38 Diverticul itis of colon 624552962 Active 2017 Ludmila Shrestha NP, S [address] [place] [address], [address], [facility] Internal [facility] 8 12:04:24 Steatohepa titis 654694526 Active 2017 Ludmila Shrestha NP, S [address] [place] [address], [address], [facility] 8 12:22:52 Tubular adenoma 587285586 Active 2018 colon 10/2018 Ludmila Shrestha NP, S [address] [place], [address], [facility] 9 08:43:02 Problem Notes None recorded. Procedures Surgical History Date Name Laterality Status Provider Name and Address Organization Details Recorded Time 11/23/19 19 colonoscopy completed Ludmila Shrestha NP, S [address] [place], [address], [facility] 11/26/2018 08:43:26 Imaging Results None [...] Address Organization Details Last Updated DateTime 8 224676. 36 g 53 kg/m2 170.82 cm 105 /min 98 % 98 % 150 mm[Hg] 96 mm[Hg] Christine Valadez [facility] 8 11:47:43 Social History Question Answer Notes LastModified by Organizat ion Details LastModified Time Tobacco Smoking Status Former Smoker Not [facility] 06/01/2020 03:36:24 What Was The Date Of Your Most Recent Tobacco Screening? 2018 [id number] Information not available 06/01/2020 Sex: Unknown Functional Status None recorded. Mental Status None recorded. Family History Nothing Reported. Medical History No medical history recorded. Past Encounters Encounter ID Performer Location Encounter Start Date Encounter Closed Date Diagnosis/Indication Diagnosis SNOMED-CT Code Diagnosis ICD10 Code Diagnosis Note [id number] Ludmila Shrestha NP, S [facility] [address] [facility],[place] [address] 2018 11:40:38 2018 16:40:52 Diverticulitis 344614811 K57.92 Steatosis of liver 95492 1007 K76.0 Hypercholesterolemia 136 94269 E78.00 Essential hypertension 70172562 I10 increase losartan to 100mg Obesity 597836992 E66.9 Atypical chest pain 1025 14332 R07.89 Candidiasis of skin 4988 3006 B37.2 Health Concerns Section Related Observation LastModified by Organization Detai ls LastModified Time None Recorded Concern Status LastModified by Organization Details LastModified Time None Recorded Advance Directives Directive None Recorded Payers Encounter Date Sequence Insurance Name Policy Number Policy Estrada Covered Member ID Estrada Member ID Guarantor Name [address] [place] [id number] [facility] [id number] [facility] Notes Date Note Type Note Provider Name [...] neck, spreading Ludmila Shrestha NP, S [address] [facility], [place], [address], [facility] 2018 12:32:29
== END 2024-09-26 10:40 | disposition home or self-care (01) ==
PROVIDERS: PCP Nurse Practitioner Family; Visit Provider Nurse Practitioner Adult Health
DX: E66.01 Morbid (severe) obesity due to excess calories (principal)
CPT/HCPCS: 99214

== ENCOUNTER 2024-10-23 08:56 | Outpatient (AMB) | payer OTHER, SELFPAY ==
[2024-10-23 09:17] VITALS: BMI 56.6
--- NOTE | 2024-10-23 09:17 | A.OFFVIS_ITS ---
VS Expanded 10/23/24 09:17 Height 5 ft 6 in Weight 350 lb 8.56 oz BMI 56.6 Intake Visit Reasons: Obesity Allergies No Known Allergies Allergy (Verified 09/26/24 10:44) Nutrition Presentation Details: Pt presents for MNT follow up for obesity Pt reports working on choosing lower fat options, less fried foods and less sugary foods in particular Working on practicing mindful eating Physical activity: ADL BS Monitoring Most Recent Diabetes Results: No Data to Display [facility] Medical History (Updated 10/28/24 @ 11:11 by Wily Becerra, [facility]) Diverticulosis DDD (degenerative disc disease), lumbar Dyslipidemia Sleep apnea GERD (gastroesophageal reflux disease) Hypertension Hx of gout Osteoarthritis Bilateral hand numbness Surgical History History of esophagogastroduodenoscopy (EGD) Hx of colonoscopy History of appendectomy Family History Father No problems noted. Mother HTN (hypertension) Diabetes mellitus Maternal Grandmother Myocardial infarction Social History Household Members: Significant Other and Children Household Members Other:: Mother Housing: House Alcohol intake: current Alcohol intake frequency: holidays/special occasions only Alcohol type: hard liquor Patient Tobacco Use Status: Former Tobacco user e-Cigarette/Vaping Use: Never Used service: No Current occupational status: unemployed Cognitive needs: No Hearing needs: No Vision needs: No Assessment & Plan Assessment & Plan (1) Morbid obesity: Code(s): E66.01 - Morbid (severe) obesity due to excess calories Category: Medical Plan: Wt: 160 Kg ( 09/23 ), 159 (10/21) Est kcal needs as per MSJ: 3300 (40% carb, 30% protein/fat) Est fluid needs as per 25-30 ml/d: 4800 Est prot per day as per 1 g/kg bw: 160 Recommend fiber intake : 8-10 g per day and gradually increase to 25-28 g per day for women and 35-38 g for men or as tolerated Recommend sodium intake per day : less than 2300 mg Educated patient on: ( R = reviewed V = verbalizes understanding N/R = needs review N/A = not applicable * Food sources of carbohydrate, adequate serving sizes and its role in various health conditions: R * Differences between complex carbohydrates a simple carbohydrates, role of fiber in diet: R * Lean protein sources of foods: R * Differences between types of fats and role in diet (mono on saturated fat fatty acids, saturated fatty acids, trans fats): R * Food sources of sodium in salt and healthy modifications for heart health in kidney health: R V R/V * Vitamins and minerals: R V N/R * Healthy plate method concept: R * Physical activity: Benefits a precaution: R * Patient Instructions: Eat slowly Have small meals following healthy plate method, do not force eat Include fish at least twice a week (reducing on high fat protein ) engage in routine walks 30-40 m, 3-4 times a week Coding Level of Care Code Nutr Indiv Subseq (26890) Diagnoses Morbid obesity E66.01 Time Spent (min) 30
== END 2024-10-23 09:42 | disposition home or self-care (01) ==
LOC: HO.ENCR 08:57
PROVIDERS: PCP Nurse Practitioner Family; Visit Provider Dietitian, Registered
DX: E66.01 Morbid (severe) obesity due to excess calories (principal)

== ENCOUNTER 2024-10-23 10:00 | Outpatient (REF) | payer OTHER, SELFPAY ==
--- NOTE | ~2024-10-23 | US_ITS ---
CLINICAL HISTORY: R10.9 - flank pain - ABD PAIN US Renal Comparison: None Findings: Right kidney normal size and echotexture, 12.0 cm length. Left kidney normal size and echotexture, 10.7 cm length. No hydronephrosis of either kidney. Normal color Doppler There are gallstones. The game producer noted a positive Ingram's sign. IMPRESSION: 1. Normal kidneys. 2. Cholelithiasis with sonographic Ingram's sign. Correlate clinically for cholecystitis. This document has been electronically signed by: Jakub Sosa MD on 10/23/2024 19:25:36
== END 2024-10-23 10:01 | disposition home or self-care (01) ==
LOC: HO.HMGCX 10:00
PROVIDERS: PCP Nurse Practitioner Family; Visit Provider Nurse Practitioner Family
DX: R10.9 Unspecified abdominal pain (principal); E66.01 Morbid (severe) obesity due to excess calories
CPT/HCPCS: 76775; 97803

== ENCOUNTER → 2024-10-23 10:51 | Outpatient (BNV) | payer OTHER, SELFPAY | PROVIDERS: PCP Nurse Practitioner Family; Visit Provider Specialist | DX: K80.20 Calculus of gallbladder without cholecystitis without obstruction (principal) | CPT/HCPCS: 76775 ==

== ENCOUNTER 2024-10-30 09:52 | Outpatient (AMB) | payer OTHER, SELFPAY ==
[2024-10-30 09:59] VITALS: BP 104/74; PULSE 94; O2SAT 98; BMI 57.2
--- NOTE | 2024-10-30 09:59 | MHC.OFFVIS ---
Vital Signs 10/30/24 09:59 Height 5 ft 6 in Weight 354 lb 8.053 oz BMI 57.2 BP 104/74 Blood Pressure Location Rt radial Position Sitting Pulse 94 Pulse Source Pulse Oximeter Pulse Oximetry (%) 98 Oxygen Delivery Method Room Air Intake Visit Reasons: Obesity Intake Note: Patient present today for Obesity follow up. Shorthand Reporter Required: No Accompanied by: Self / Same As Patient Allergies No Known Allergies Allergy (Verified 10/30/24 09:59) Medication List - Last Reconciled 10/30/24 by Norberto Costa MD albuterol sulfate 90 mcg/actuation 2 puffs inhalation Q6H PRN colchicine 0.6 mg PO BID PRN hydrochlorothiazide 12.5 mg PO QAM losartan 100 mg PO DAILY 90 days tirzepatide (weight loss) (Zepbound) 2.5 mg (0.5 mL) subcut QWEEK 4 weeks HPI Comments Details: This is a 49-year-old male sent to endocrinology for evaluation of obesity. Patient states weight gain of yrs over 60 lbs over last yr . Patient has tried diets of exercise, keto, weight watchers , protein shakes . He was prescribed Wegovy by his primary care provider but insurance didn't cover . Was in bariatric program in [place] but on pause. . He has not been any other weight loss medications. He has a history of elevated liver enzymes and degenerative disc disease in lumbar spine. There is no history of thyroid problems or symptoms of hypothyroidism. This is a normal TSH in April 2024. There are no symptoms of [place] syndrome. No hx of diabetes but mother and grandmother do. Currently on Zepbound 2.5 mg Q weekly for 2 mos .The patient is a 49-year-old male presenting with concerns regarding his medication regimen for weight management. Since starting the medication two months ago, the patient reports a weight loss of approximately 10 pounds. Initially, the medication effectively controlled hunger, but there is now a noted breakthrough in hunger sensations. He denies nausea or severe adverse effects but mentions manageable constipation potentially linked to the medication. The patient has limited time for exercise due to a busy work schedule but reports reduced overall food intake. Additionally, he has sporadic mild discomfort due to previously identified gallstones. He is planning to consult with a specialist regarding the gallstones. The patient reports reduced food intake overall, avoiding excess and focusing on hunger cues rather than habitual eating. There is no specific mention of dietary restrictions or preferences. He experiences periodic episodes of constipation, which he associates with current medication use. [facility] Medical History (Updated 10/28/24 @ 11:11 by Wily Becerra [facility]) Diverticulosis DDD (degenerative disc disease), lumbar Dyslipidemia Sleep apnea GERD (gastroesophageal reflux disease) Hypertension Hx of gout Osteoarthritis Bilateral hand numbness Surgical History History of esophagogastroduodenoscopy (EGD) Hx of colonoscopy History of appendectomy Family History Father No problems noted. Mother HTN (hypertension) Diabetes mellitus Maternal Grandmother Myocardial infarction Social History Household Members: Significant Other and Children Household Members Other:: Mother Housing: House Alcohol intake: current Alcohol intake frequency: holidays/special occasions only Alcohol type: hard liquor Patient Tobacco Use Status: Former Tobacco user e-Cigarette/Vaping Use: Never Used service: No Current occupational status: unemployed Cognitive needs: No Hearing needs: No Vision needs: No Physical Exam Vital Signs: BMI result Body Mass Index 57.2 Assessment & Plan Assessment & Plan (1) Morbid obesity: Code(s): E66.01 - Morbid (severe) obesity due to excess calories Category: Medical Plan: This is a 49-year-old male with a history of morbid obesity. There is no clear underlying endocrine etiology. . Weight Management: The current medication regimen for weight management shows partial efficacy, and a dosage adjustment to 5 mg of Zepbound is planned to enhance its appetite-suppressing properties without significant adverse events. Constipation management through increased fiber is advised. The patient will work on incorporating exercise into his routine to support weight loss efforts. Follow-up in six weeks with Monique Manning NP to assess the treatment plan and outcomes. Gallstones: The patient has previously identified gallstones causing mild discomfort intermittently. Plan to coordinate with a specialist on whether the current medication affects the gallstones and thereafter consider any necessary adjustments. Follow-up after consultation will determine further management steps. We did discuss the potential relationship between Zepbound and gallstones a potential worsening of the gallstones and the risk associated with this vs benefits of weight loss and the patient wants to continue on the Zepbound pending further gallstone evaluation by specialist. If it is deemed that the Zepbound is causing adverse effect worsening with gallstones, the medication may need to be discontinued The patient had an opportunity to ask questions regarding treatment plan. The patient expressed understanding and agreement with the above treatment plan. The patient is aware they should contact our office by phone for worsening glucose readings or for any low blood sugars which may warrant a change in diabetes medication. Compliance is encouraged with medications and any followup testing/consults which may have been ordered. Patient was informed and verbally consented to the use of an ambient scribe for clinic note documentation during this visit. Medications: New Zepbound (tirzepatide (weight loss)) 5 mg (0.5 mL) subcut QWEEK 2 mL 3RF NS Discontinued tirzepatide (weight loss) (Zepbound) [facility] [id number] Discontinued Reason: Doctor's Order 2.5 mg (0.5 mL) subcut QWEEK 4 weeks 2 mL 0RF E66.01 - Morbid (severe) obesity due to excess calories Coding Level of Care Code Est Pt Level 3 (80099) Diagnoses Morbid obesity E66.01
--- OUTSIDE RECORDS SUMMARY | 2024-10-30 10:32 | XMS_ITS | Data Portability ---
Author Organization [facility] Address [address] [place] [address] Assessment No assessment recorded. Plan of Treatment [...] tbalicki Sheryl Colon MD, [address], [place], [address], 8 14:14:21 gastroente rologist referral 2017 018 winston Vallecillo MD, [address] [place] [address] , [place] [address], [place], [address], 8 11:51:57 Procedures None recorded. Surgeries None recorded. Imaging electrocar diogram 2017 018 [id number] [facility], [address] [facility], [address], [place], [address], 8 16:40:53 Medication Orders Diflucan 150 mg tablet 2017 018 INTERFACE [facility][id number], [address] [place], [id number], 8 12:28:45 Patient Targets Encounter Date Encounter [...] Not available 2018 12:27:19 Reason for Referral Manager Mba Referral for C andidiasis of skin Referring Physician: Ludmila Shrestha, Internal Medicine, Encounter Date: 2018 Owner Referral for Diverticulitis diverticulitis with abscess Referring Physician: Ludmila Shrestha, Internal Medicine, Encounter Date: 2018 Results Created Date Observation Date Name Description Value Unit Range Abnormal Flag Note LastModifiedBy Organization Detail LastModifiedTime 03/27/20 18 2018 mundo powell am Rate & Rhythm Not Available [facility] [address] [place] [address], [address], 2018 12:08:37 03/27/20 18 2018 mundo powell am QRS Not Available [facility] [address] [place] [address], [address], 2018 12:08:37 03/27/20 18 2018 mundo powell am [place] Interval Not Available [facility] [address] [place] [address], [address], 2018 12:08:37 03/27/20 18 2018 elect rocar diogr am QRS Duration Not Available [facility] [address] [facility] [address], [place], [address], 2018 12:08:37 03/27/20 18 2018 elect rocar diogr am QT Interval Not Available [address], [place], [address], 2018 12:08:37 Result Notes None recorded. Problems Name Problem SNOMED Code Status Onset Date Resolution Date Notes Provider Name and Address Organization Details Recorded Time Essential hypertensi on 08550881 Active 2017 [facility] 8 15:38:57 Gout 94816566 Active 2017 Christine Valadez [facility] 8 15:39:08 Sleep apnea 20684855 Active 2017 [place] Allyson [facility] 8 15:39:19 Obesity 577530460 Active 2017 Christinedebbi Valadez [facility] 8 15:39:29 Hyperchole sterolemia 07839272 Active 2017 [place] Allyson [facility] 8 15:39:38 Diverticul itis of colon 040828595 Active 2017 Ludmila Shrestha NP, S [address] [place] [address], [address], [facility] Internal [facility] 8 12:04:24 Steatohepa titis 302048305 Active 2017 Ludmila Shrestha NP, S [address] [place] [address], [address], [facility] 8 12:22:52 Tubular adenoma 112627876 Active 2018 colon 10/2018 Ludmila Shrestha NP, [address] [place], [address], [facility] 9 08:43:02 Problem Notes None recorded. Procedures Surgical History Date Name Laterality Status Provider Name and Address Organization Details Recorded Time 11/23/19 19 colonoscopy completed Ludmila Shrestha NP, S [address] [place], [address], [facility] 11/26/2018 08:43:26 Imaging Results [...] Address Organization Details Last Updated DateTime 8 160188. 36 g 53 kg/m2 170.82 cm 105 /min 98 % 98 % 150 mm[Hg] 96 mm[Hg] Christine Valadez [facility] 8 11:47:43 Social History Question Answer Notes LastModified by Organizat ion Details LastModified Time Tobacco Smoking Status Former Smoker Not Available [facility] 06/01/2020 03:36:24 What Was The Date Of Your Most Recent Tobacco Screening? 2018 [id number] Information not available 06/01/2020 Sex: Unknown Functional Status None recorded. Mental Status None recorded. Family History Nothing Reported. Medical History No medical history recorded. Past Encounters Encounter ID Performer Location Encounter Start Date Encounter Closed Date Diagnosis/Indication Diagnosis SNOMED-CT Code Diagnosis ICD10 Code Diagnosis Note [id number] Ludmila Shrestha NP, S [facility] [address] [facility],[place] [address] 2018 11:40:38 2018 16:40:52 Diverticulitis 879660411 K57.92 Steatosis of liver 16837 1007 K76.0 Hypercholesterolemia 136 39224 E78.00 Essential hypertension 78823286 I10 increase losartan to 100mg Obesity 989924003 E66.9 Atypical chest pain 1025 72842 R07.89 Candidiasis of skin 4988 3006 B37.2 Health Concerns Section Related Observation LastModified by Organization Detai ls LastModified Time None Recorded Concern Status LastModified by Organization Details LastModified Time None Recorded Advance Directives Directive None Recorded Payers Encounter Date Sequence Insurance Name Policy Number Policy Estrada Covered Member ID Estrada Member ID Guarantor Name [address] [place] [address] [id number] [facility] [id number] [facility] Notes Date Note Type Note Provider [...] neck, spreading Ludmila Shrestha NP, S [address] [place], [address], [facility] 2018 12:32:29
--- OUTSIDE RECORDS SUMMARY | 2024-10-30 10:32 | XMS_ITS | Clinical Summary ---
Author Organization [employer] Address [address] [place] [address] [address] [place] [address] Care Team Providers Care Health Plan Advisor Name Role Phone Unavailable Primary Care Provider [...] 8:58 AM EST Sexual Orientation Straight 09/12/2022 8: 58 AM EST Last Filed Vital Signs Vital [...] Most Recently Relevant to Health Maintenance Insurance [facility] MEDICAID STAND ADULT
--- OUTSIDE RECORDS SUMMARY | 2024-10-30 10:32 | XMS_ITS | Clinical Summary ---
Author Organization [facility] it[facility] Address [address] [place] [address] Care Team Providers Care Race Board Attendant Name Role Phone Unavailable Primary Care Provider [...]
== END 2024-10-30 10:16 | disposition home or self-care (01) ==
LOC: HO.ENCR 09:53
PROVIDERS: PCP Nurse Practitioner Family; Visit Provider Internal Medicine Endocrinology, Diabetes & Metabolism
DX: E66.01 Morbid (severe) obesity due to excess calories (principal)
CPT/HCPCS: 99213

== ENCOUNTER 2024-11-18 08:25 | Outpatient (AMB) | payer OTHER, SELFPAY ==
[2024-11-18 08:33] VITALS: BP 116/80; PULSE 85; RESP 20; TEMP 36.5; O2SAT 97; BMI 57.0
--- NOTE | 2024-11-18 08:33 | A.OFFPC_ITS ---
Vital Signs 11/18/24 08:33 Height 5 ft 6 in Weight 353 lb BMI 57.0 BP 116/80 Blood Pressure Location Lt brachial Position Sitting Respiration 20 Pulse 85 Pulse Source Pulse Oximeter Temp 97.7 F Temp Source Oral Pulse Oximetry (%) 97 Oxygen Delivery Method Room Air Intake Visit Reasons: CPE Intake Note: Pt is here today for PE. Allergies No Known Allergies Allergy (Verified 11/18/24 09:11) Medication List - Last Reconciled 11/18/24 by LYDIA Zhang- albuterol sulfate 90 mcg/actuation 2 puffs inhalation Q6H PRN hydrochlorothiazide 12.5 mg PO QAM losartan 100 mg PO DAILY 90 days Zepbound (tirzepatide (weight loss)) 5 mg (0.5 mL) subcut QWEEK NS Tobacco use date assessed: 11/18/24 Dental Screening Dental Screen Date: 11/18/24 Did you have a dental visit in the last 12 months?: Yes Did you have a dental problem in the last 6 months where you did not have access to dental care?: No Was dental information given to patient?: Patient has dentist HPI CPE HPI Details History of Present Illness The patient is a 49-year-old male presenting with concerns related to obesity management and evaluation of right upper quadrant pain. The patient has been referred to endocrinology to initiate GLP-1 agonist therapy to address his morbid obesity. The patient also experiences occasional right upper quadrant pain, currently not exhibiting associated symptoms like fever or abdominal tenderness, which has been correlated to findings of cholecystiasis on a recent renal ultrasound. A positive Ingram?s sign was noted on the ultrasound exam, warranting a HIDA scan to assess further. Regarding his musculoskeletal concerns, the patient has a documented history of arthritis; however, the specifics, whether it is rheumatoid arthritis, remain unclear. He reports experiencing joint pains primarily affecting his hands, and laboratory investigations are planned to investigate the suspicion of rheumatoid arthritis further. Health Maintenance - Referral to endocrinology for GLP-1 ag onist therapy for weight management. - HIDA scan scheduled due to ultrasound findings indicative of cholecystiasis. - Basic laboratory evaluation planned, i ncluding rheumatoid factor testing. -colon screen is up to date Social History Review of Systems - General: Denies fever, chills. - Respiratory: Denies shortness of breat h. - Cardiovascular: Denies chest pain. - Gastrointestinal: Reports right upper quadrant pain, denies current abdominal pain. - Musculoskeletal: Reports joint pain in hands. - Psychiatric: Denies suicidal ideation, denies homicidal ideation. Physical Exam General: Cooperative, morbidly obese, comfortable, no acute distress and well developed Orientation: Patient oriented x3 Limitations: No limitations Head: Normal to inspection Ears: Hearing grossly normal bilaterally Nose: Normal external nose present Face and sinus: Normal facial exam Eyes: Appearance normal, both eyes and all related structures Neck: Normal visual inspection and Yes full ROM Respiratory: Normal respiratory effort and able to speak in complete sentences. Clear to auscultation bilaterally Cardiovascular: Regular rate and rhythm. Normal S1 and S2 GI: Normal to inspection. Soft to palpation and nontender. Skin: No rashes or lesions noted Neuro: Patient oriented x3 Extremities: Normal to inspection. Reports some joint pains, especially in hands Results - Tests: Renal ultrasound indicating cho lecystiasis. Plan A multifaceted approach has been established to address the patient's medical concerns presented during this visit. For the issue of morbid obesity, a referral to endocrinology for GLP-1 agonist therapy is expected to assist significantly in weight management. The pain in the right upper quadrant of the abdomen, suspected to be related to cholecystiasis as indicated by an ultrasound, will be further clarified through a HIDA scan, although no emergent action is required currently due to absent acute symptoms. Given the historical presence of arthritis with potential rheumatoid etiology, a comprehensive lab work-up will be pursued to confirm any findings suggestive of rheumatoid arthritis, which will inform treatment direction. Discussion Notes I have engaged with the patient regarding the identified medical conditions, explaining management strategies in clear terms. The anticipated start of GLP-1 agonist therapy under endocrinological guidance was reviewed, highlighting its potential benefits towards achieving weight loss goals. The need for a HIDA scan was emphasized as a necessary step in understanding the underlying cause of right upper quadrant pain associated with documented cholecystiasis. We discussed exploring the possibility of rheumatoid arthritis through laboratory testing and the potential future need for toggle press folder and feeder consultation if indicated by test results. The patient was informed regarding expected timelines and recommended follow-up appointments to facilitate ongoing assessment and management of his health concerns. Patient Instructions - Follow up with endocrinology for GLP-1 agonist therapy. - Complete the scheduled HIDA scan. - Report any new or worsening symptoms i mmediately, including abdominal pain or changes in joint pain. - Return for follow-up to discuss lab re sults and further steps. [facility] Medical History (Updated 11/18/24 @ 09:12 by Wily Becerra [facility]) Diverticulosis DDD (degenerative disc disease), lumbar Dyslipidemia Sleep apnea GERD (gastroesophageal reflux disease) Hypertension Hx of gout Osteoarthritis Bilateral hand numbness Surgical History History of esophagogastroduodenoscopy (EGD) Hx of colonoscopy History of appendectomy Family History Father No problems noted. Mother HTN (hypertension) Diabetes mellitus Maternal Grandmother Myocardial infarction Social History Household Members: Significant Other and Children Household Members Other:: Mother Housing: House Alcohol intake: current Alcohol intake frequency: holidays/special occasions only Alcohol type: hard liquor Patient Tobacco Use Status: Former Tobacco user e-Cigarette/Vaping Use: Never Used service: No Current occupational status: unemployed Cognitive needs: No Hearing needs: No Vision needs: No Questionnaire PHQ-9 Over the last 2 weeks, how often have you been bothered by any of the following problems? 1. Little interest or pleasure in doing things: not at all 2. Feeling down, depressed, or hopeless: not at all 3. Trouble falling or staying asleep, or sleeping too much: not at all 4. Feeling tired or having little energy: several days 5. Poor appetite or overeating: not at all 6. Feeling bad about yourself - or that you are a failure or have let yourself or your family down: not at all 7. Trouble concentrating on things, such as reading the newspaper or watching television: not at all 8. Moving or speaking so slowly that other people could have noticed. Or the opposite - being so fidgety or restless that you have been moving around a lot more than usual: not at all 9. Thoughts that you would be better off or of hurting yourself in some way: not at all Total score: 1 Depression Screening Interpretation: Negative Depression Screening Done: Yes 66694 - PHQ-9 Billing: Yes Source: Developed by Drs. Norberto L. Rosalia Cruz Kurt Kroenke and colleagues, with an educational rajwinder from [employer]. Thrive Questionnaire Date Thrive assessed: 11/18/24 I am a: Patient What is your living situation today?: I have a steady place to live Within the past 12 months, did the food you bought not last and you didn't have the money to get more?: I choose not to answer this question Within the past 12 months, did you worry whether your food would run out before you got money to buy more?: I choose not to answer this question Do you have trouble paying for medicines?: No Do you have trouble getting transportation to medical appointments?: No Do you have trouble paying your heating and electricity bill?: No Do you have trouble taking care of your child, family member or friend?: No Do you have trouble with day-to-day activities such as bathing, preparing meals, shopping, managing finances, etc.?: No Are you currently unemployed and looking for a job?: No Are you interested in more education?: No Please select the resources that you would like help with: None Currently or been in a relationship where the following occur: I choose not to answer THRIVE Score: 0 AUDIT C Alcohol Use Questionnaire (AUDIT-C) 1. How often do you have a drink containing alcohol?: Monthly or less 2. How many drinks containing alcohol do you have on a typical day when you are drinking?: 1 or 2 3. How often do you have six or more drinks on one occasion?: Never Total Score: 1 Score Reviewed/Action Taken: Yes ANSHUL-7 AMB Questionnaire ANSHUL-7 Date ANSHUL - 7 assessed: 09/24/24 Source: Developed by Drs. Norberto Cruz, Rosalia Alcocer, Farhat Diaz and colleagues, with an educational rajwinder from [employer]. Physical exam (Primary Care) Vital Signs: Last Vital Signs Temp 97.7 F 11/18/24 08:33 Pulse 85 11/18/24 08:33 Resp 20 11/18/24 08:33 BP 116/80 11/18/24 08:33 Pulse Ox 97 11/18/24 08:33 Oxygen Delivery Method Room Air 11/18/24 08:33 BMI result Body Mass Index 57.0 Tobacco/Smoking Status: Tobacco use Status Tobacco use date assessed 11/18/24 11/18/24 08:40 Patient Tobacco Use Status Former Tobacco user 11/18/24 08:40 e-Cigarette/Vaping Use Never Used 11/18/24 08:40 PHQ-9: PHQ-9 Score PHQ-9: Total score 1 11/18/24 08:40 Depression Screening Interpretation: Negative Thrive Assessment: Date of Thrive Assessment Date Thrive assessed 11/18/24 11/18/24 08:42 Currently or been in a relationship where the following occur: I choose not to answer Coding Level of Care Code Est Pt Prev Care 40-64y(69189) Diagnoses Physical exam Z00.00 Screening for prostate cancer Z12.5 Family history of rheumatoid arthritis Z82.61 Additional Codes PHQ-9 - 68771 - PHQ-9 Billing: Yes ([id number]) Assessment & Plan Assessment & Plan (1) Physical exam: Code(s): Z00.00 - Encounter for general adult medical examination without abnormal findings Category: Medical (2) Screening for prostate cancer: Code(s): Z12.5 - Encounter for screening for malignant neoplasm of prostate Category: Medical (3) Family history of rheumatoid arthritis: Code(s): Z82.61 - Family history of arthritis Category: Medical Plan . Orders: Orders Complete Blood Count Auto Diff Today Z00.00 - Encounter for general adult medical examination without abnormal findings TSH reflex Free T4 Today Z00.00 - Encounter for general adult medical examination without abnormal findings Lipid Panel Today Z00.00 - Encounter for general adult medical examination without abnormal findings Prostate Specific Antigen Scr Today Z12.5 - Encounter for screening for malignant neoplasm of prostate Comprehensive [place]. Panel Fast Today Z00.00 - Encounter for general adult medical examination without abnormal findings UA CC w/rflx Micro + Cult Today Z00.00 - Encounter for general adult medical examination without abnormal findings Rheumatoid Factor Today Z82.61 - Family history of arthritis Cyclic Citrullinated Peptide Today Z82.61 - Family history of arthritis
--- OUTSIDE RECORDS SUMMARY | 2024-11-18 08:46 | XMS_ITS | Clinical Summary ---
Author Organization [facility] ity Address [address] [place] [address] Care Team Providers Care Seamless Hosiery Knitter Name Role Phone Unavailable Primary Care Provider [...] Vaccine ( - 2023-2 5 season) 2024 Cholesterol Screening (Lipid Panel) 05/25/2024 Colorectal Cancer Screening: Colonoscopy 05/25/2024 Depression Screening 05/25/2024 HIV Screening 05/25/2024 Hepatitis C Screening 05/25/2024 Social Influencers of Health Screening 05/25/2024 Influenza Vaccine (Season Ended) 2025 HIB Vaccines Aged Out No longer eligi [...] age to complete this topic Meningococcal B Vaccine Aged Out No l onger eligible based on patient's age to complete [...]
--- OUTSIDE RECORDS SUMMARY | 2024-11-18 08:46 | XMS_ITS | Clinical Summary ---
Author Organization [employer] Address [address] [place] [address] [address] [place] [address] Care Team Providers Care Forestry Fire Aide Name Role Phone Unavailable Primary Care Provider [...] Most Recently Relevant to Health Maintenance Insurance [facility] MEDICAID STAND ADULT
== END 2024-11-18 09:21 | disposition home or self-care (01) ==
LOC: HO.HMCC 08:26
PROVIDERS: PCP Nurse Practitioner Family; Visit Provider Nurse Practitioner Family
DX: Z00.00 Encounter for general adult medical examination without abnormal findings (principal); Z12.5 Encounter for screening for malignant neoplasm of prostate; Z82.61 Family history of arthritis

== ENCOUNTER → 2024-11-18 08:25 | Outpatient (BNVA) | payer OTHER, SELFPAY | PROVIDERS: PCP Nurse Practitioner Family; Visit Provider Nurse Practitioner Family | DX: Z00.00 Encounter for general adult medical examination without abnormal findings (principal); Z82.61 Family history of arthritis | CPT/HCPCS: 96127 ==

== ENCOUNTER → 2024-11-21 07:45 | Outpatient (REF) | payer OTHER, SELFPAY ==
--- NOTE | ~2024-11-21 | NM_ITS ---
EXAMINATION: NM HEPATOBILIARY WITH PHARM HISTORY: R10.11 - Right upper quadrant pain. TECHNIQUE: An hepatobiliary scan was performed following the intravenous administration of 5.0 mCi technetium 99m-mebrofenin. Sequential images were obtained over 1 hour. Subsequently, the patient received 3.2 microgram of IV CCK over 30 minutes and additional imaging was performed. COMPARISON: Correlation is made with an abdominal ultrasound dated 06/12/2024. FINDINGS: There is normal uptake and excretion of the radiopharmaceutical by the liver. Gallbladder activity is noted at 12 minutes. Common bile duct activity is seen at 56 minutes. Small bowel activity is noted at 63 minutes. After the administration of intravenous CCK, the estimated gallbladder ejection fraction is 86%, which is within normal limits (normal 35-80%). NM/NM hepatobiliary w pharm IMPRESSION: Normal hepatobiliary scan with normal gallbladder ejection fraction. Electronically signed by: Norberto Horton MD 11/21/2024 11:28 AM EDT
--- OUTSIDE RECORDS SUMMARY | 2024-11-21 07:48 | XMS_ITS | Data Portability ---
Author Organization [facility] Address [address] [place] [address] Assessment No assessment recorded. Plan of Treatment [...] tbalicki Sheryl Colon MD, [address], [place], [address], 8 14:14:21 gastroente rologist referral 2017 018 winston Vallecillo MD, [address] [place] [address] , [place] [address], [place], [address], 8 11:51:57 Procedures None recorded. Surgeries None recorded. Imaging electrocar diogram 2017 018 [email or web address] [facility], [address] [facility], [address], [place], [address], 8 16:40:53 Medication Orders Diflucan 150 mg tablet 2017 018 INTERFACE [id number], [address] [place], [id number], 8 12:28:45 Patient Targets Encounter Date Encounter [...] Not available 2018 12:27:19 Reason for Referral Instrumentation Technologist Referral for C andidiasis of skin Referring Physician: Ludmlia Shrestha, Internal Medicine, Encounter Date: 2018 Head Refrigeration Engineer Referral for Diverticulitis diverticulitis with abscess Referring Physician: Ludmila Shrestha, Internal Medicine, Encounter Date: 2018 Results Created Date Observation Date Name Description Value Unit Range Abnormal Flag Note LastModifiedBy Organization Detail LastModifiedTime 03/27/20 18 2018 mundo powell am Rate & Rhythm Not Available [facility] [address] [place] [address], [phone], 2018 12:08:37 03/27/20 18 2018 mundo powell am QRS Not Available [facility] [address] [place] [address], [phone], 2018 12:08:37 03/27/20 18 2018 mundo powell am SD Interval Not Available [facility] [address] [place] [address], [phone], 2018 12:08:37 03/27/20 18 2018 elect rocar diogr am QRS Duration Not Available [facility] [address] [facility] [address], [place], [address], 2018 12:08:37 03/27/20 18 2018 elect rocar diogr am QT Interval Not Available [address], [place], [address], 2018 12:08:37 Result Notes None recorded. Problems Name Problem SNOMED Code Status Onset Date Resolution Date Notes Provider Name and Address Organization Details Recorded Time Essential hypertensi on 57122047 [facility] 15:[facility]:57 Gout 80369026 Active 2017 [facility] 8 15:39:08 Sleep apnea 24486137 Active 2017 [facility] 8 15:39:19 Obesity 766602013 Active 2017 [facility] 8 15:39:29 Hyperchole sterolemia 91198801 Active 2017 [facility] [facility] 8 15:39:38 Diverticul itis of colon 181715190 Active 2017 Ludmila Shrestha NP, [address] [place] [address], [phone], [facility] Internal [facility] 8 12:04:24 Steatohepa titis 843736104 Active 2017 Ludmila Shrestha NP, [address] [place] [address], [phone], [facility] 8 12:22:52 Tubular adenoma 416694532 Active 2018 colon 10/2018 Ludmila Shrestha NP, [address] [place], [address], [facility] 9 08:43:02 Problem Notes None recorded. Procedures Surgical History Date Name Laterality Status Provider Name and Address Organization Details Recorded Time 11/23/19 19 colonoscopy completed Ludmila Shrestha NP, [address] [place], [address], [facility] 11/26/2018 08:43:26 [...] Address Organization Details Last Updated DateTime 8 652674. 36 g 53 kg/m2 170.82 cm 105 /min 98 % 98 % 150 mm[Hg] 96 mm[Hg] Christine Valadez [facility] 8 11:47:43 Social History Question Answer Notes LastModified by Organizat ion Details LastModified Time Tobacco Smoking Status Former Smoker Not Available [facility] 06[facility]01/2020 03:36:24 What Was The Date Of Your Most Recent Tobacco Screening? 2018 [id number] Information not available 06/01/2020 Sex: Unknown Functional Status None recorded. Mental Status None recorded. Family History Nothing Reported. Medical History No medical history recorded. Past Encounters Encounter ID Performer Location Encounter Start Date Encounter Closed Date Diagnosis/Indication Diagnosis SNOMED-CT Code Diagnosis ICD10 Code Diagnosis Note [id number] Xander Estrada DO [facility] [address] [facility],[place] [address] 2018 11:40:38 2018 16:40:52 Diverticulitis 451084395 K57.92 Steatosis of liver 61137 1007 K76.0 Hypercholesterolemia 136 11570 E78.00 Essential hypertension 79291449 I10 increase losartan to 100mg Obesity 695835831 E66.9 Atypical chest pain 1025 59798 R07.89 Candidiasis of skin 4988 3006 B37.2 Health Concerns Section Related Observation LastModified by Organization Detai ls LastModified Time None Recorded Concern Status LastModified by Organization Details LastModified Time None Recorded Advance Directives Directive None Recorded Payers Encounter Date Sequence Insurance Name Policy Number Policy Estrada Covered Member ID Estrada Member ID Guarantor Name [address] [place] [address] [id number] [facility] [id number] [facility] Notes Date Note Type Note Provider [...] neck, spreading Ludmila Shrestha NP, [address] [facility], [place], [address], [facility] 2018 12:32:29
--- OUTSIDE RECORDS SUMMARY | 2024-11-21 07:48 | XMS_ITS | Clinical Summary ---
Author Organization [employer] Address [address] [place] [address] [address] [place] [address] Care Team Providers Care Squeak Rattle And Leak Repairer Name Role Phone Unavailable Primary Care Provider [...] Most Recently Relevant to Health Maintenance Insurance [facility] MEDICAID STAND ADULT
--- OUTSIDE RECORDS SUMMARY | 2024-11-21 07:49 | XMS_ITS | Clinical Summary ---
Author Organization [facility] ity Address [address] [place] [address] Care Team Providers Care Department Supervisor Name Role Phone Unavailable Primary Care Provider [...]
== END ==
LOC: HO.NUCMED 07:45
PROVIDERS: PCP Nurse Practitioner Family; Visit Provider Nurse Practitioner Family
DX: R10.11 Right upper quadrant pain (principal)
CPT/HCPCS: 78227; A9537; J2805

== ENCOUNTER → 2024-11-21 07:47 | Outpatient (BNV) | payer OTHER, SELFPAY | PROVIDERS: PCP Nurse Practitioner Family; Visit Provider Radiology Diagnostic Radiology | DX: R10.9 Unspecified abdominal pain (principal) | CPT/HCPCS: 78227 ==

== ENCOUNTER 2024-11-27 09:10 | Outpatient (REF) | payer OTHER, SELFPAY ==
--- OUTSIDE RECORDS SUMMARY | 2024-11-27 09:54 | XMS_ITS | Data Portability ---
Author Organization [facility] Address [address] [place] [address] Assessment No assessment recorded. Plan of Treatment [...] tbalicki Sheryl Colon MD, [address], [place], [address], 8 14:14:21 gastroente rologist referral 2017 018 winston Vallecillo MD, [address] [place] [address] , [place] [address], [place], [address], 8 11:51:57 Procedures None recorded. Surgeries None recorded. Imaging electrocar diogram 2017 018 [email or web address] [facility], [address] [facility], [address], [place], [address], 8 16:40:53 Medication Orders Diflucan 150 mg tablet 2017 018 INTERFACE [id number], [address] [place], [id number], 8 12:28:45 Patient Targets Encounter Date Encounter [...] Not available 2018 12:27:19 Reason for Referral Textile Dyer Referral for C andidiasis of skin Referring Physician: Ludmila Shrestha, Internal Medicine, Encounter Date: 2018 Technical Sales Representatives Referral for Diverticulitis diverticulitis with abscess Referring Physician: Ludmila Shrestha, Internal Medicine, Encounter Date: 2018 Results Created Date Observation Date Name Description Value Unit Range Abnormal Flag Note LastModifiedBy Organization Detail LastModifiedTime 03/27/20 18 2018 mundo powell am Rate & Rhythm Not Available [facility] [address] [place] [address], [address], 2018 12:08:37 03/27/20 18 2018 mundo powell am QRS Not Available [facility] [address] [place] [address], [address], 2018 12:08:37 03/27/20 18 2018 mundo powell am [place] Interval Not Available [facility] [address] [place] [address], [address], 2018 12:08:37 03/27/20 18 2018 elect rocar diogr am QRS Duration Not Available [facility] [address] [facility] [address], [place], [address], 2018 12:08:37 03/27/20 18 2018 elect rocar diogr am QT Interval Not Available [address], [place], [address], 2018 12:08:37 Result Notes None recorded. Problems Name Problem SNOMED Code Status Onset Date Resolution Date Notes Provider Name and Address Organization Details Recorded Time Essential hypertensi on 48893528 [facility] 8 15:[facility]:57 Gout 23406035 Active 2017 Christine Valadez [facility] 8 15:39:08 Sleep apnea 15047596 Active 2017 [place] [facility] 8 15:39:19 Obesity 548081046 Active 2017 Christinedebbi Valadez [facility] 8 15:39:29 Hyperchole sterolemia 83012189 Active 2017 [place] [facility] 8 15:39:38 Diverticul itis of colon 412873244 Active 2017 Ludmila Shrestha NP, [address] [place] [address], [address], [facility] Internal [facility] 8 12:04:24 Steatohepa titis 746615726 Active 2017 Ludmila Shrestha NP, S [address] [place] [address], [address], [facility] 8 12:22:52 Tubular adenoma 764085618 Active 2018 colon 10/2018 Ludmila Shrestha NP, [address] [place], [address], [facility] 9 08:43:02 Problem Notes None recorded. Procedures Surgical History Date Name Laterality Status Provider Name and Address Organization Details Recorded Time 11/23/19 19 colonoscopy completed Ludmila Shrestha NP, [address] [place], [address], [facility] 11/26/2018 08:43:26 Imaging Results [...] Address Organization Details Last Updated DateTime 8 249948. 36 g 53 kg/m2 170.82 cm 105 /min 98 % 98 % 150 mm[Hg] 96 mm[Hg] Christine Valadez [facility] 8 11:47:43 Social History Question Answer Notes LastModified by Organizat ion Details LastModified Time Tobacco Smoking Status Former Smoker Not Available [facility] 06/01/2020 03:36:24 What Was The Date Of Your Most Recent Tobacco Screening? 2018 [id number] Information not available 06/01/2020 Sex: Unknown Functional Status None recorded. Mental Status None recorded. Family History Nothing Reported. Medical History No medical history recorded. Past Encounters Encounter ID Performer Location Encounter Start Date Encounter Closed Date Diagnosis/Indication Diagnosis SNOMED-CT Code Diagnosis ICD10 Code Diagnosis Note [id number] Xander Estrada DO [facility] [address] [facility],[place] [address] 2018 11:40:38 2018 16:40:52 Diverticulitis 574693219 K57.92 Steatotic liver disease 693528953 K76.0 Hypercholesterolemia 136 67476 E78.00 Essential hypertension 49232044 I10 increase losartan to 100mg Obesity 197696496 E66.9 Atypical chest pain 1025 95316 R07.89 Candidiasis of skin 4988 3006 B37.2 Health Concerns Section Related Observation LastModified by Organization Detai ls LastModified Time None Recorded Concern Status LastModified by Organization Details LastModified Time None Recorded Advance Directives Directive None Recorded Payers Encounter Date Sequence Insurance Name Policy Number Policy Estrada Covered Member ID Estrada Member ID Guarantor Name [address] [place] [address] [id number] [facility] [id number] [facility] Notes Date Note Type Note Provider [...] neck, spreading Ludmila Shrestha NP, [address] [facility], [place], [address], [facility] 2018 12:32:29
--- OUTSIDE RECORDS SUMMARY | 2024-11-27 09:54 | XMS_ITS | Clinical Summary ---
Author Organization [facility] ity Address [address] [place] [address] Care Team Providers Care Wind Tunnel Mechanic Name Role Phone Unavailable Primary Care Provider [...]
--- OUTSIDE RECORDS SUMMARY | 2024-11-27 09:54 | XMS_ITS | Clinical Summary ---
Author Organization [employer] Address [address] [place] [address] [address] [place] [address] Care Team Providers Care Consumer Insight Manager Name Role Phone Unavailable Primary Care [...]
[2024-11-27 13:06] LABS: MANUAL DIFF FLAG NO
[2024-11-27 13:12] LABS: Basophils Absolute Auto 0.1 X10*3/uL (0.0-0.2); Basophils Percent Auto 1.1 % (0-2); Eosinophils Absolute Auto 0.2 X10*3/uL (0.0-0.4); Eosinophils Percent Auto 2.7 % (0-4); Hematocrit 45.8 % (42.0-52.0); Hemoglobin 15.7 g/dl (14.0-18.0); Imm Gran Abs Auto 0.02 X10*3/uL (0.00-0.03); Imm Gran Pct Auto 0.3 % (0.0-0.4); Lymphocytes Absolute Auto 2.4 X10*3/uL (1.2-4.9); Lymphocytes Percent Auto 35.5 % (20-40); Mean Corpuscular HGB Conc 34.3 g/dl (31.0-36.0); Mean Corpuscular Hemoglobin 30.4 pg (27.0-33.0); Mean Corpuscular Volume 88.8 fL (80.0-98.0); Mean Platelet Volume 10.9 fL (9.4-12.4); Monocytes Absolute Auto 0.5 X10*3/uL (0.1-1.2); Monocytes Percent Auto 6.9 % (2-11); Neutrophils Absolute Auto 3.6 x10*3/uL (2.0-8.3); Neutrophils Percent Auto 53.5 % (45-73); Platelet Count 231 X10*3/uL (160-400); Red Blood Count 5.16 X10*6/uL (4.60-5.80); White Blood Count 6.7 X10*3/uL (4.8-10.8)
[2024-11-27 13:13] LABS: Appearance Urine Turbid; Color Urine Yellow; Glucose Urine UA Negative (Negative); Leukocyte Esterase Urine Negative (Negative); Nitrite Urine Negative (Negative); Specific Gravity - Urine >= 1.030 (1.005-1.025); Urine Blood Negative (Negative); Urine Ketones Negative (Negative); Urine Protein Negative (Neg-Trace)
[2024-11-27 13:32] LABS: Rheumatoid Factor < 13.0 IU/mL (<15.0)
[2024-11-27 13:41] LABS: Albumin Level 4.1 g/dL (3.5-5.0); Alkaline Phosphatase 59 U/L (39-117); Anion Gap 12 (12-20); Aspartate Amino Transferase 41 U/L (5-37); Bilirubin Total 0.7 mg/dL (0.0-1.0); Blood Urea Nitrogen 12 mg/dL (9-16); Calcium 9.5 mg/dL (8.4-10.2); Carbon Dioxide 27 mmol/L (22-29); Chloride 105 mmol/L (96-108); Cholesterol 186 mg/dL (<200); Estimated Glomerular Filt Rate > 60; Glucose Fasting 94 mg/dL (60-99); HDL Cholesterol 41 mg/dL (>40); LDL Cholesterol Calculated 127 mg/dL (<100); Potassium 3.9 mmol/L (3.3-5.1); Sodium 140 mmol/L (135-145); Total Protein 7.4 g/dL (6.5-8.0); Triglycerides 93 mg/dL (<150)
[2024-11-27 13:45] LABS: Prostate Specific Antigen Scr 0.89 ng/mL (<0.05-4.0)
[2024-11-27 13:47] LABS: Alanine Aminotransferase 66 U/L (0-40)
[2024-11-27 13:58] LABS: TSH reflex Free T4 1.36 uIU/mL (0.32-4.0)
[2024-12-01 19:29] LABS: Cyclic Citrullinated Peptide <16 UNITS
== END 2024-11-27 09:11 | disposition home or self-care (01) ==
LOC: HO.HMGCLDS 09:10
PROVIDERS: PCP Nurse Practitioner Family; Visit Provider Nurse Practitioner Family
DX: Z00.00 Encounter for general adult medical examination without abnormal findings (principal); Z12.5 Encounter for screening for malignant neoplasm of prostate; Z82.61 Family history of arthritis; Z13.6 Encounter for screening for cardiovascular disorders
CPT/HCPCS: 36415; 80053; 80061; 81003; 84153; 84443; 85025; 86200; 86431

== ENCOUNTER 2024-12-25 07:59 | Outpatient (AMB) | payer OTHER, SELFPAY ==
--- NOTE | 2024-12-25 08:02 | A.OFFVIS_ITS ---
Vital Signs 12/25/24 08:04 Height 5 ft 6 in Weight 345 lb 3.902 oz BMI 55.7 BP 112/86 Blood Pressure Location Rt brachial Position Sitting Pulse 92 Pulse Source Pulse Oximeter Pulse Oximetry (%) 95 Oxygen Delivery Method Room Air Intake Visit Reasons: Obesity Intake Note: Patient present today for Obesity follow up. Fisher Required: No Accompanied by: Self / Same As Patient Allergies No Known Allergies Allergy (Verified 12/25/24 08:05) Medication List - Last Reconciled 12/25/24 by Norberto Costa MD albuterol sulfate 90 mcg/actuation 2 puffs inhalation Q6H PRN hydrochlorothiazide 12.5 mg PO QAM losartan 100 mg PO DAILY 90 days Zepbound (tirzepatide (weight loss)) 5 mg (0.5 mL) subcut QWEEK NS HPI Comments Details: This is a 49-year-old male sent to endocrinology for evaluation of obesity. Patient states weight gain of yrs over 60 lbs over last yr . Patient has tried diets of exercise, keto, weight watchers , protein shakes . He was prescribed Wegovy by his primary care provider but insurance didn't cover . Was in bariatric program in [place] but on pause. . He has not been any other weight loss medications. He has a history of elevated liver enzymes and degenerative disc disease in lumbar spine. There is no history of thyroid problems or symptoms of hypothyroidism. This is a normal TSH in April 2024. There are no symptoms of [place] syndrome. No hx of diabetes but mother and grandmother do. Currently on Zepbound 5 mg Q weekly for 2 mos .The patient is a 49-year-old male presenting with concerns regarding his medication regimen for weight management. Since starting the medication two months ago, the patient reports a weight loss of approximately 10 pounds. Initially, the medication effectively controlled hunger, but there is now a noted breakthrough in hunger sensations. He denies nausea or severe adverse effects but mentions manageable constipation potentially linked to the medication. The patient has limited time for exercise due to a busy work schedule but reports reduced overall food intake. Additionally, he has sporadic mild discomfort due to previously identified gallstones. He is planning to consult with a specialist regarding the gallstones. The patient reports reduced food intake overall, avoiding excess and focusing on hunger cues rather than habitual eating. There is no specific mention of dietary restrictions or preferences. He experiences periodic episodes of constipation, which he associates with current medication use. The patient is a 49-year-old male presenting with weight management concerns and monitoring of Zepbound treatment. He has lost approximately 8 to 9 pounds since his last visit and is on a 5 mg Zepbound regimen. The patient tolerates the medication well, with some gastrointestinal issues, possibly related to diverticulitis and dietary choices like pistachios. His gallbladder condition is stable, with previous issues having been evaluated, and he is aware of the potential exacerbation by Zepbound. He is advised not to increase the medication dosage and is satisfied with the current weight loss progress. COUNTS INCLUDE 234 BEDS AT [facility] Medical History (Updated 11/27/24 @ 14:57 by Wily Becerra [facility]) Diverticulosis DDD (degenerative disc disease), lumbar Dyslipidemia Sleep apnea GERD (gastroesophageal reflux disease) Hypertension Hx of gout Osteoarthritis Bilateral hand numbness Surgical History History of esophagogastroduodenoscopy (EGD) Hx of colonoscopy History of appendectomy Family History Father No problems noted. Mother HTN (hypertension) Diabetes mellitus Maternal Grandmother Myocardial infarction Social History Household Members: Significant Other and Children Household Members Other:: Mother Housing: House Alcohol intake: current Alcohol intake frequency: holidays/special occasions only Alcohol type: hard liquor Patient Tobacco Use Status: Former Tobacco user e-Cigarette/Vaping Use: Never Used service: No Current occupational status: unemployed Cognitive needs: No Hearing needs: No Vision needs: No Physical Exam Vital Signs: BMI result Body Mass Index 55.7 Assessment & Plan Assessment & Plan (1) Morbid obesity: Code(s): E66.01 - Morbid (severe) obesity due to excess calories Category: Medical Plan: This is a 49-year-old male with a history of morbid obesity. There is no clear underlying endocrine etiology. He is currently on Zepbound 5 mg Q weekly 1. Obesity The patient is on a 5 mg Zepbound regimen, experiencing satisfactory weight loss with minor gastrointestinal disturbances. The current dosage will be maintained, with dietary caution advised to avoid symptoms. 3. History of gallbladder issues The gallbladder is stable, with Zepbound potential exacerbation acknowledged. Symptom vigilance is advised. During the visit, we discussed the patient's ongoing weight management with Zepbound, emphasizing the satisfactory weight loss achieved. The potential gastrointestinal disturbances related to diverticulitis and dietary choices were reviewed, with advice provided to avoid nuts that may aggravate symptoms. The patient was informed of the stable status of his gallbladder and the need to monitor for any symptoms possibly exacerbated by Zepbound. We agreed on maintaining the current medication dosage and deferring any increase to avoid additional side effects. Follow-up was discussed, with the patient encouraged to report any significant changes in symptoms. - Continue taking Zepbound 5 mg as prescribed. - Avoid eating nuts to prevent aggravating gastrointestinal symptoms. - Monitor for any gallbladder-related symptoms and report if they occur. - Maintain dietary vigilance to support weight management. - Report any significant changes or worsening symptoms immediately. . The patient had an opportunity to ask questions regarding treatment plan. The patient expressed understanding and agreement with the above treatment plan. The patient is aware they should contact our office by phone for worsening glucose readings or for any low blood sugars which may warrant a change in diabetes medication. Compliance is encouraged with medications and any followup testing/consults which may have been ordered. Patient was informed and verbally consented to the use of an ambient scribe for clinic note documentation during this visit. Coding Level of Care Code Est Pt Level 3 (89262) Diagnoses Morbid obesity E66.01
[2024-12-25 08:04] VITALS: BP 112/86; PULSE 92; O2SAT 95; BMI 55.7
== END 2024-12-25 08:18 | disposition home or self-care (01) ==
LOC: HO.ENCR 08:00
PROVIDERS: PCP Nurse Practitioner Family; Visit Provider Internal Medicine Endocrinology, Diabetes & Metabolism
DX: E66.01 Morbid (severe) obesity due to excess calories (principal)
CPT/HCPCS: 99213

== ENCOUNTER 2025-01-08 09:30 | Outpatient (AMB) | payer OTHER, SELFPAY ==
[2025-01-08 09:37] VITALS: BMI 54.4
--- NOTE | 2025-01-08 09:37 | MHC.AMNUTRGE ---
VS Expanded 01/08/25 09:37 Height 5 ft 6 in Weight 337 lb 4.916 oz BMI 54.4 Intake Visit Reasons: Obesity Allergies No Known Allergies Allergy (Verified 12/25/24 08:05) Nutrition Presentation Details: Pt presents for MNT f/u for obesity Pt reports switching to lower sugar beverages, trying seltzer water, also working on reducing amount of alcohol consumed vodka (2shots twice day )from 6 2 eggs boiled and whole wheat toast protein shake and apples or orange or pears lunch salad and chicken chicken or pork chop , brown rice and cauliflower /green beans Reports working on including seafood- tried scallop last week physical : walking daily 15-20 minutes at work, getting into the routine BS Monitoring Most Recent Diabetes Results: Cholesterol, (<200) 186 mg/dL 11/27/24 HDL Cholesterol, (>40) 41 mg/dL 11/27/24 Triglycerides, (<150) 93 mg/dL 11/27/24 Creatinine, (0.5-1.4) 0.80 mg/dL 11/27/24 BUN, (9-16) 12 mg/dL 11/27/24 Sodium, (135-145) 140 mmol/L 11/27/24 Potassium, (3.3-5.1) 3.9 mmol/L 11/27/24 Chloride, (96-108) 105 mmol/L 11/27/24 Carbon Dioxide, (22-29) 27 mmol/L 11/27/24 Calcium, (8.4-10.2) 9.5 mg/dL 11/27/24 AST, (5-37) 41 U/L H 11/27/24 ALT, (0-40) 66 U/L H 11/27/24 Total Protein, (6.5-8.0) 7.4 g/dL 11/27/24 Albumin, (3.5-5.0) 4.1 g/dL 11/27/24 [facility] Medical History (Updated 11/27/24 @ 14:57 by Wily Becerra TRANSFORMER COIL WINDER-) Diverticulosis DDD (degenerative disc disease), lumbar Dyslipidemia Sleep apnea GERD (gastroesophageal reflux disease) Hypertension Hx of gout Osteoarthritis Bilateral hand numbness Surgical History History of esophagogastroduodenoscopy (EGD) Hx of colonoscopy History of appendectomy Family History Father No problems noted. Mother HTN (hypertension) Diabetes mellitus Maternal Grandmother Myocardial infarction Social History Household Members: Significant Other and Children Household Members Other:: Mother Housing: House Alcohol intake: current Alcohol intake frequency: holidays/special occasions only Alcohol type: hard liquor Patient Tobacco Use Status: Former Tobacco user e-Cigarette/Vaping Use: Never Used service: No Current occupational status: unemployed Cognitive needs: No Hearing needs: No Vision needs: No Assessment & Plan Assessment & Plan (1) Morbid obesity: Code(s): E66.01 - Morbid (severe) obesity due to excess calories Category: Medical Plan: Wt: 160 Kg ( 09/23 ), 159 (10/21), 153 (01/21) Est kcal needs as per MSJ: 3300 (40% carb, 30% protein/fat) Est fluid needs as per 25-30 ml/d: 4600 Est prot per day as per 1 g/kg bw: 150 Recommend fiber intake : 8-10 g per day and gradually increase to 25-28 g per day for women and 35-38 g for men or as tolerated Recommend sodium intake per day : less than 2300 mg Educated patient on: ( R = reviewed V = verbalizes understanding N/R = needs review N/A = not applicable Food sources of carbohydrate, adequate serving sizes and its role in various health conditions: R Differences between complex carbohydrates a simple carbohydrates, role of fiber in diet: R Lean protein sources of foods: R Differences between types of fats and role in diet (mono on saturated fat fatty acids, saturated fatty acids, trans fats): R Food sources of sodium in salt and healthy modifications for heart health in kidney health: R V R/V Vitamins and minerals: R V N/R Healthy plate method concept: R Physical activity: Benefits a precaution: R ,V Patient Instructions: Work on choosing lower fat food options lean protein foods (6-7 oz serving size at meal : baked fish, poultry, eggs, more frequently, reduce on pork/beef/highly processed meats Abstain from alcohol keep hydrated by having water, low sugar beverages Walk daily 30 minutes Coding Level of Care Code Nutr Indiv Subseq (72757) Diagnoses Morbid obesity E66.01 Time Spent (min) 25
--- OUTSIDE RECORDS SUMMARY | 2025-01-08 10:23 | XMS_ITS | Data Portability ---
Author Organization [facility] Patient Home Address [address] [place] [address] Assessment No assessment recorded. Plan of Treatment [...] tbalicki Sheryl Colon MD, [address], [place], [address], 8 14:14:21 gastroente rologist referral 2017 018 winston Vallecillo MD, [address] [place] [address] , [address] [place] [address], [place], [address], 8 11:51:57 Procedures None recorded. Surgeries None recorded. Imaging electrocar diogram 2017 018 [email or web address] [facility], [address] [facility], [address], [place], [address], 8 16:40:53 Medication Orders Diflucan 150 mg tablet 2017 018 INTERFACE [id number], [address] [place], [id number], 8 12:28:45 Patient Targets Encounter Date Encounter Id Patient Goals Patient Target Last Modified By Organization Details Last Modified Time 2018 [id number] weight loss essurinder Not available 12:27:29 Patient Instructions Encounter Date Encounter Id [...] Not available 2018 12:27:19 Reason for Referral Blood Bank Assistant Referral for C andidiasis of skin Referring Physician: Ludmila Shrestha, Internal Medicine, Encounter Date: 2018 Clam Bed Laborer Referral for Diverticulitis diverticulitis with abscess Referring Physician: Ludmila Shrestha, Internal Medicine, Encounter Date: 2018 Results Created Date Observation Date Name Description Value Unit Range Abnormal Flag Note LastModifiedBy Organization Detail LastModifiedTime 03/27/20 18 2018 mundo powell am Rate & Rhythm Not Available [facility] [address] [place] [address], [place], [address], 2018 12:08:37 03/27/20 18 2018 mundo powell am QRS Not Available [facility] [address] [facility] [address], [place], [address], 2018 12:08:37 03/27/20 18 2018 mundo powell am [place] Interval Not Available [facility] [address] [facility] [address], [place], [address], 2018 12:08:37 03/27/20 18 2018 elect rocar diogr am QRS Duration Not Available [facility] [address] [facility] [address], [place], [address], 2018 12:08:37 03/27/20 18 2018 elect rocar diogr am QT Interval Not Available [facility] [address] [facility] [address], [place], [address], 2018 12:08:37 Result Notes None recorded. Problems Name Problem SNOMED Code Status Onset Date Resolution Date Notes Provider Name and Address Organization Details Recorded Time Essential hypertensi on 27342398 [facility] 8 15:38:57 Gout 58299805 Active 2017 Christine Valadez [facility] 8 15:39:08 Sleep apnea 72779954 Active 2017 Christinedebbi Valadez [facility] 8 15:39:19 Obesity 646972472 [facility] 2017 [facility] 8 15:39:29 Hyperchole sterolemia 88524564 Active 2017 [facility] 8 15:39:38 Diverticul itis of colon 647369208 Active 2017 Ludmila Shrestha NP, S [address] [place] [address], [address], [facility] Internal [facility] 8 12:04:24 Steatohepa titis 994050068 Active 2017 Ludmila Shrestha NP, S [address] [place] [address], [address], [facility] 8 12:22:52 Tubular adenoma 380750575 Active 2018 colon 10/2018 Ludmila Shrestha NP, [address] [place], [address], [facility] 9 08:43:02 Problem Notes None recorded. Procedures Surgical History Date Name Laterality Status Provider Name and Address Organization Details Recorded Time 11/23/19 19 colonoscopy completed Ludmila Shrestha NP, [address] [place], [address], [facility] 11/26/2018 08:43:26 Imaging [...] Address Organization Details Last Updated DateTime 8 188515. 36 g 53 kg/m2 170.82 cm 105 /min 98 % 98 % 150 mm[Hg] 96 mm[Hg] Christine Valadez [facility] 8 11:47:43 Social History Question Answer Notes LastModified by Organizat ion Details LastModified Time Tobacco Smoking Status Former Smoker Not Available [facility] 06/01/2020 03:36:24 What Was The Date Of Your Most Recent Tobacco Screening? 2018 [id number] Information not available 06/01/2020 Sex: Unknown Functional Status None recorded. Mental Status None recorded. Family History Nothing Reported. Medical History No medical history recorded. Past Encounters Encounter ID Performer Location Encounter Start Date Encounter Closed Date Diagnosis/Indication Diagnosis SNOMED-CT Code Diagnosis ICD10 Code Diagnosis Note [id number] Xander Estrada DO [facility] [address] [facility] [place] [address] 2018 11:40:38 2018 16:40:52 Diverticulitis 482390488 K57.92 Steatotic liver disease 204553742 K76.0 Hypercholesterolemia 136 84114 E78.00 Essential hypertension 57961862 I10 increase losartan to 100mg Obesity 538338136 E66.9 Atypical chest pain 1025 35465 R07.89 Candidiasis of skin 4988 3006 B37.2 Health Concerns Section Related Observation LastModified by Organization Detai ls LastModified Time None Recorded Concern Status LastModified by Organization Details LastModified Time None Recorded Advance Directives Directive None Recorded Payers Insurance Date Sequence Insurance Name Policy Number Policy Estrada Covered Member ID Estrada Member ID Guarantor Name 10/25/[address] [place] [address] [id number] [facility] [id number] [facility] Notes Date Note Type Note Provider [...] c/o rash near neck, spreading Ludmila Shrestha PRODUCTION CONTROL EXPEDITER, [address] [place], [address], [place] [facility] 2018 12:32:29
== END 2025-01-08 09:57 | disposition home or self-care (01) ==
LOC: HO.ENCR 09:30
PROVIDERS: PCP Nurse Practitioner Family; Visit Provider Dietitian, Registered
DX: E66.01 Morbid (severe) obesity due to excess calories (principal)

== ENCOUNTER → 2025-01-08 09:30 | Outpatient (BNVA) | payer OTHER, SELFPAY | PROVIDERS: PCP Nurse Practitioner Family; Visit Provider Dietitian, Registered | DX: Z71.3 Dietary counseling and surveillance (principal); Z71.82 Exercise counseling; E66.01 Morbid (severe) obesity due to excess calories | CPT/HCPCS: 97803 ==

== ENCOUNTER 2025-04-16 08:34 | Outpatient (AMB) | payer OTHER, SELFPAY ==
[2025-04-16 08:42] VITALS: BMI 48.9
--- NOTE | 2025-04-16 08:42 | A.OFFVIS_ITS ---
VS Expanded 04/16/25 08:42 Height 5 ft 6 in Weight 303 lb 2.17 oz BMI 48.9 Intake Visit Reasons: obesity Allergies No Known Allergies Allergy (Verified 12/25/24 08:05) Nutrition Presentation Details: Pt presents for MNT f/u for obesity Pt reports getting in to walking routine 4 d/wk : for 30-40 min feeling more comfortable and easier to walk Has 1 protein shake a day and 2 meals consisting of 5-6 oz of protein (meals vary in terms of starches/vegetables) reports choosing fruits- at night or vegetable with light dressing or diplow in fat - choosing lower fat options at night time etoh :reports working on reducing less frequent fluids: water, low sugar flavoring , diluted juices BS Monitoring Most Recent Diabetes Results: Cholesterol, (<200) 186 mg/dL 11/27/24 HDL Cholesterol, (>40) 41 mg/dL 11/27/24 Triglycerides, (<150) 93 mg/dL 11/27/24 Creatinine, (0.5-1.4) 0.80 mg/dL 11/27/24 BUN, (9-16) 12 mg/dL 11/27/24 Sodium, (135-145) 140 mmol/L 11/27/24 Potassium, (3.3-5.1) 3.9 mmol/L 11/27/24 Chloride, (96-108) 105 mmol/L 11/27/24 Carbon Dioxide, (22-29) 27 mmol/L 11/27/24 Calcium, (8.4-10.2) 9.5 mg/dL 11/27/24 AST, (5-37) 41 U/L H 11/27/24 ALT, (0-40) 66 U/L H 11/27/24 Total Protein, (6.5-8.0) 7.4 g/dL 11/27/24 Albumin, (3.5-5.0) 4.1 g/dL 11/27/24 OEJ-Bjrfylg-Nf.Jeor Equation Height: 5 ft 6 in Weight: 303 lb Resting Metabolic Rate: 2184.68 Calculated Activity Level: Sedentary Calories Needed to Maintain Weight: 2621.62 [facility] Medical History (Updated 11/27/24 @ 14:57 by iWly Becerra, [facility]-) Diverticulosis DDD (degenerative disc disease), lumbar Dyslipidemia Sleep apnea GERD (gastroesophageal reflux disease) Hypertension Hx of gout Osteoarthritis Bilateral hand numbness Surgical History History of esophagogastroduodenoscopy (EGD) Hx of colonoscopy History of appendectomy Family History Father No problems noted. Mother HTN (hypertension) Diabetes mellitus Maternal Grandmother Myocardial infarction Social History Household Members: Significant Other and Children Household Members Other:: Mother Housing: House Alcohol intake: current Alcohol intake frequency: holidays/special occasions only Alcohol type: hard liquor Patient Tobacco Use Status: Former Tobacco user e-Cigarette/Vaping Use: Never Used service: No Current occupational status: unemployed Cognitive needs: No Hearing needs: No Vision needs: No Assessment & Plan Assessment & Plan (1) Morbid obesity: Code(s): E66.01 - Morbid (severe) obesity due to excess calories Category: Medical Plan: Wt: 160 Kg ( 09/23 ), 159 (10/21), 153 (01/21), 137 kg (04/23) Est kcal needs as per MSJ: 2600 (40% carb, 30% protein /fat) Est fluid needs as per 25-30 ml/d: 4100 Est prot per day as per 1 g/kg bw: 140 Recommend fiber intake : 8-10 g per day and gradually increase to 25-28 g per day for women and 35-38 g for men or as tolerated Recommend sodium intake per day : less than 2300 mg Educated patient on: ( R = reviewed V = verbalizes understanding N/R = needs review N/A = not applicable * Food sources of carbohydrate, adequate serving sizes and its role in various health conditions: R * Differences between complex carbohydrates a simple carbohydrates, role of fiber in diet: R * Lean protein sources of foods: R * Differences between types of fats and role in diet (mono on saturated fat fatty acids, saturated fatty acids, trans fats): R * Food sources of sodium in salt and healthy modifications for heart health in kidney health: R * Vitamins and minerals: R V N/R * Healthy plate method concept: R * Physical activity: Benefits a precaution: R ,V * Patient Instructions: Continue engaging in physical activity (low impact swimming, walking, stretch bands) 30-40 minutes 3-4 times a week unless otherwise specified by your doctor lnclude leafy green in your diet (spinach , broccoli, juan greens, salads 2 TIMES A DAY increasing on fiber and make sure to have water with meals or snacks ot prevent constipation Continue choosing lean protein foods (shrimp combined with lean beef as example, have fisha at least twice a week (portion 4-5 oz ) HAV Coding Level of Care Code Nutr Indiv Subseq (73181) Diagnoses Morbid obesity E66.01 Time Spent (min) 30
--- OUTSIDE RECORDS SUMMARY | 2025-04-16 09:47 | XMS_ITS | Clinical Summary ---
Author Organization [facility] ity Address [address] [place] [address] Care Team Providers Care Work Environment Safety Inspector Name Role Phone Unavailable Primary Care Provider [...] of 3 - 19+ 3-dose series) 1995 Cholesterol Screening (Lipid Panel) 05/25/2024 Colorectal Cancer Screening: Colonoscopy 05/25/2024 HIV Screening 05/25/2024 Hepatitis C Screening 05/25/2024 Social Influencers of Health Screening 05/25/2024 Depression Screening 07/30/2024 COVID-19 Vaccine ( - 2023-2 5 season) 2025 Influenza Vaccine (#1) 2025 HIB Vaccines Aged Out No longer [...] 5 Years) and At-Risk Patients (6 to 49 Years) Aged Out No longer eligible b ased on patient's age to complete this topic RSV Immunization Patients Un tiffany 20 months Aged Out No longer eligible b ased on patient's age to complete this topic Varicella Vaccines Aged Out No longer eligible based on patient's age to complete this topic
--- OUTSIDE RECORDS SUMMARY | 2025-04-16 09:47 | XMS_ITS | Clinical Summary ---
Author Organization [facility] Address [address] [place] [phone] Phone Care Team Providers Care Workers Compensation Coordinator Name Role Phone Wily Becerra NP Primary Care Provider + Allergies No known active allergies Medications losartan (COZAAR) 50 MG tablet Take 100 mg by mouth daily. 07/25/2022 Active pravastatin (PRAVACHOL) 40 MG tablet Take 40 mg by mouth. 08/21/2022 Active omeprazole (PRILOSEC) 40 MG capsule Take by mouth daily. 10/17/2022 Active hydroCHLOROthia zide (HYDRODIURIL) 12.5 MG tablet Take 12.5 mg by mouth. 09/18/2022 Active allopurinol (ZYLOPRIM) 300 MG tablet Take by mouth daily. Active cholecalciferol (VITAMIN D3) 50,000 unit capsule Take 1 capsule (50,000 Units total) by mouth once a week. 4 capsule 06/20/2024 Active Active Problems Problem Noted Date Diagnosed Date Shortness of breath 08/25/2024 Pre-operative cardiovascular examination 024 Morbid obesity with BMI of 50.0-59.9, adult /0 10/2022 Assessment & Plan (06/06/2024 12:28 PM EST): This is a 49 YO patient who is interested in weight loss surgery, specifically the laparoscopic sleeve gastric for weight loss. We have discussed gastric bypass and sleeve gastrectomy surgery in detail including risks, benefits, and alternatives. We have also discussed requirements preop and post op. They understands that they are required to lose about 10 percent of their current weight which is 36 lbs. The goal weight at the time of submission to the insurance company will be 328.4 pounds. In an effort to help the patient to lose weight I have prescribed an eating plan which will consist of a protein shake or a protein bar or Maldivian yogurt or cottage cheese to be consumed at 9 AM and 3 PM daily. The patient will consume 4 ounces of protein with 6 ounces of vegetable or small salad with a noncreamy salad dressing of not more than 2 tablespoons at 12 PM and 6 PM daily. At the 6 PM meal the patient may have 1/2 cup of carbohydrate. We have ordered required labs and testing. The patient will attend 5 nutrition classes, 2 appointments, and dietitian consultation. The patient will need to obtain a medical clearance letter from the primary care doctor prior to submission to the insurance company. The patient will see the dietitian in 2 and 4 weeks and I will follow up with them again in 6 weeks to ensure compliance with the meal plan. The patient will continue current medications as reviewed. They are not stable and are considered morbidly obese. I spent 47 minutes with this patient which also included documentation. Assessment & Plan (02/12/2023 4:35 PM EDT): This is a 47-year-old gentleman who is interested in laparoscopic sleeve gastrectomy for weight loss. The patient has completed 2 out of 2 behavioral health assessments, all required testing and is currently working on the nutrition classes. He has lost an additional 7.6 pounds and has 16 more pounds to lose before being a surgical weight loss candidate. Patient will continue current eating plan and water intake plan. He will increase the frequency of his exercise. He will follow-up with the dietitian in about a week and follow-up with me again in 4 weeks timeframe. He will continue current medications as reviewed. He is not stable and is considered morbidly obese. The patient will have his vitamin D level rechecked once he has completed the supplementation. Assessment & Plan (11/28/2022 10:21 AM EDT): This is a 47-year-old gentleman who is interested in a laparoscopic sleeve gastrectomy for weight loss. He has lost 12.4 pounds and has another 23.6 pounds to lose. He is doing well with the eating plan with the exception of skipping meals. He was encouraged to avoid skipping meals. He is drinking plenty of water and he will restart his exercise regimen after he has been off his regimen for 2 weeks secondary to a flare of his gout. Patient will continue current medications as reviewed. He has completed 0 out of 5 nutrition classes, 1 out of 2 behavioral health assessments, and all required testing. Patient will follow-up with me again in 4 weeks timeframe. He is not stable and is considered overly obese. Assessment & Plan (10/31/2022 3:15 PM EDT): This is a 47 YO patient who is interested in weight loss surgery, specifically the laparoscopic sleeve gastrectomy for weight loss. We have discussed gastric bypass and sleeve gastrectomy surgery in detail including risks, benefits, and alternatives. We have also discussed requirements preop and post op. They understands that they are required to lose about 10 percent of their current weight which is 36 lbs. The goal weight at the time of submission to the insurance company will be 327.8 pounds. In an effort to help the patient to lose weight I have prescribed an eating plan which will consist of a protein shake or a protein bar or Maldivian yogurt or cottage cheese to be consumed at 9 AM and 3 PM daily. The patient will consume 4 ounces of protein with 6 ounces of vegetable or small salad with a noncreamy salad dressing of not more than 2 tablespoons at 12 PM and 6 PM daily. At the 6 PM meal the patient may have 1/2 cup of carbohydrate. We have ordered required labs and testing. The patient will attend 5 nutrition classes, 2 appointments, and dietitian consultation. The patient will need to obtain a medical clearance letter from the primary care doctor prior to submission to the insurance company. The patient will see the dietitian in 2 weeks and I will follow up with them again in 4 weeks to ensure compliance with the meal plan. The patient will continue current medications as reviewed. They are not stable and are considered morbidly obese. I spent 71 minutes with this patient which also included documentation. Preoperative examination 10/31/2022 Family History Medical History Relation Comments Diabetes Maternal Grandmother Hypertension Maternal Grandmother Diabetes type II Mother High cholesterol Mother Hypertension Mother Diabetes Sister 1 Relation Status Comments Brother Alive Father Alive Maternal Grandmother Mother Alive Sister 1 Alive Sister 2 Alive Sister 3 Alive Social History Tobacco Use Types Packs/Day Years Used Date Smoking Tobacco: Former Cigarettes Q uit: 2020 Smokeless Tobacco: Never Tobacco Cessation:Counseling Given: Not Answered Alcohol Use Standard Drinks/Week Comments Not Currently 8 (1 standard drink = 0.6 oz pur e alcohol) Education Answer Date Recorded Are you interested in more education? Not on suyapa e 11/25/2022 Are you concerned about learning? Not on file 11/25/2022 No 11/25/2022 No 11/25/2022 Digital Access Answer Date Recorded No 12/23/2022 No 12/23/2022 Reliable internet access at home? Not on file 12/23/2022 Device with a working camera? Not on file Intimate Partner Violence Answer Date R ecorded Are you denied basic needs s uch as food, clothing, or medical care? No 07/25/2024 In the past 12 months have y ou been in a relationship with a person who hurts, threatens, or tries to control you? No 07/25/2024 Are you denied basic needs s uch as food, clothing, or medical care? No 07/25/2024 In the past 12 months have y ou been in a relationship with a person who hurts, threatens, or tries to control you? No 07/25/2024 Sex and Gender Information Value Date Recorded Sex Assigned at Not on file Legal Sex Male 11:04 AM EST Gender Identity Not on file Sexual Orientation Not on file Occupation Industry Job Start Date Job End Date unemployed Not on file Not on file Not on file Last Filed Vital Signs Vital Sign Reading Time Taken Comments Blood Pressure 132/76 07/17/2024 9:00 AM EST Pulse 93 07/17/2024 9:00 AM EST Temperature 36.9 C (98.4 F) 07/17/2024 9:00 AM EST Respiratory Rate - - Oxygen Saturation 98% 07/17/2024 9:00 AM EST Inhaled Oxygen Concentration - - Weight 160.6 kg (354 lb) 07/17/2024 9:00 AM EST Height 170.2 cm (5' 7.01 ) 07/17/2024 9:00 AM ES T Body Mass Index 55.43 07/17/2024 9:00 AM EST Plan of Treatment Health Maintenance Due Date Last Done Comments Adult Td,Tdap Booster 1976 SMOKING Hx and SMOKELESS TOBACCO SCREENING 1989 HEPATITIS C SCREENING 1994 HIV ONE-TIME SCREENING (18-6 5 YEARS) 1994 COLOGUARD 2021 COLONOSCOPY 2021 COLORECTAL CANCER SCREENING 2021 FIT TEST 2021 FOBT 2021 SIGMOIDOSCOPY 2021 VIRTUAL COLONOSCOPY 2021 INFLUENZA VACCINE (#1) 2025 COVID-19 VACCINE (1 - 2023-2 5 season) 2025 CREATININE LEVEL 06/20/2025 06/20/2024, 11/07/2022 POTASSIUM LEVEL 06/20/2025 06/20/2024, 11/07/2022 DEPRESSION SCREENING 07/25/2025 07/25/2024 SCREENING FOR DIABETES 06/20/2027 , 06/20/2024 LIPID PANEL 06/20/2029 06/20/2024, 11/07/2022 HEPATITIS A VACCINES Aged Out No long er eligible based on patient's age to complete this topic HIB VACCINES Aged Out No longer eligi ble based on patient's age to complete this topic MENINGOCOCCAL VACCINES (ACWY) Aged Out No longer eligible based on patient's age to complete this topic MENINGOCOCCAL VACCINES (B) Aged Out N o longer eligible based on patient's age to complete this topic PNEUMOCOCCAL VACCINES (0-49 years) Aged Out No longer eligible b ased on patient's age to complete this topic Medical Devices Not on file Procedures Procedure Name Priority Date/Time Associated Diagnosis Comments LIPID PANEL Routine 06/20/2024 8:23 AM EST Morbid obesity with BMI of 50.0-59.9, adult COMPREHENSIVE METABOLIC PANEL Routine 06/20/2024 8:23 AM EST Morbid obesity with BMI of 50.0-59.9, adult from Last 3 Months or Most Recently Relevant to Health Maintenance Results * (ABNORMAL) Comprehensive metabolic panel (06/20/2024 8:23 AM EST) SODIUM 141 133 - 146 mmol/L [facility] POTASSIUM 3.8 3.3 - 5.1 mmol/L [facility] CHLORIDE 105 96 - 108 mmol/L [facility] CO2 26 21 - 35 mmol/L [facility] BUN 12 6 - 19 mg/dL [facility] CREATININE 0.80 0.5 - 1.5 mg/dL [facility] GLUCOSE 117(H) 70 - 99 mg/dL [facility] ALBUMIN 4.1 3.9 - 4.8 g/dL [facility] TOTAL PROTEIN 7.7 6.5 - 8.0 g/dL [facility] CALCIUM 9.6 8.4 - 10.3 mg/dL [facility] ALKALINE PHOSPHATASE 68 39 - 117 U/L [facility] TOTAL BILIRUBIN 0.4 0.0 - 1.2 mg/dL [facility] AST 25 0 - 37 U/L [facility] ALT 44(H) 0 - 40 U/L [facility] GLOBULIN 3.6 1 - 4.8 g/dL [facility] EGFR 109 >59 mL/min/1.7 3m2 [facility] Comment:Estimated glomerular filtration rate calculated using the CKD-EPI refit equation. ANION GAP 14 10 - 20 mmol/L [facility] Blood 06/20/2024 8:23 AM EST 06/20/2024 8:33 AM EST us Shanon Casarez MD LAB BLOOD ORDERABLES Final Result [facility] [address] [place] [id number] * Lipid panel (06/20/2024 8:23 AM EST) HDL 45 mg/dL [facility] Comment: Interpretation <40 mg/dL: Low HDL cholesterol (major risk factor for CHD) Greater than or equal to 60 mg/dL: High HDL cholesterol ( negative risk factor for CHD) HDL - cholesterol is affected by a number of factors, e.g. smoking, excerise, hormones, sex and age. CHOLESTEROL 177 0 - 240 mg/dL [facility] TRIGLYCERIDES 87 30 - 160 mg/dL [facility] LDL 115 50 - 129 mg/dL [facility] Comment: LDL levels in terms of risk for coronary heart disease: <100 mg/dL: Optimal 100-129 mg/dL: Near or above optimal 130-159 mg/dL: Borderline high 160-189 mg/dL: High >190 mg/dL: Very High CARDIAC RISK RATIO 3.9 3.4 - 5.0 C [facility] Blood 06/20/2024 8:23 AM EST 06/20/2024 8:33 AM EST us Shanon Casarez MD LAB BLOOD ORDERABLES Final Result [facility] [address], [place] [id number] from Last 3 Months or Most Recently Relevant to Health Maintenance Insurance [facility] HMO Care Teams Workers Compensation Coordinator Relationship Specialty Start Date End Date Wily Becerra NP [address] [place] [id number] PCP - General Nurse Practitioner 09/26/22 Additional Source Comments The information contained in this document represents components of the legal health record. It is not the complete legal health record.[facility]
--- OUTSIDE RECORDS SUMMARY | 2025-04-16 09:47 | XMS_ITS | Clinical Summary ---
Author Organization [employer] Address [address] [place] [address] [address] [place] [address] Care Team Providers Care Mechanical Project Manager Name Role Phone Unavailable Primary Care [...] FIT 1976 FOBT 1976 HIV Screening 1976 SDOH Screening 1976 Sigmoidoscopy 1976 Disability Screening 1976 Alcohol/Substance Use Screening 1988 Family Planning (PISQ) 1991 Hepatitis C Screening 1994 Hepatitis A Vaccines (1 of 2 - Risk 2-dose series) 1995 Hepatitis B Vaccines (1 of 3 - 19+ 3-dose series) 1995 Pneumococcal Vaccine: Pediatrics (0 to 5 Years) and At-Risk Patients (6 to 49) Years (1 of 2 - PCV) 1995 Dental Oral Exam 03/13/2023 09/12/2022 Dental Prophylaxis 03/13/2023 09/12/2022 Tobacco Screening 09/12/2023 09/12/2022 Dental X-Ray: Bitewings 09/13/2023 09/12/2022 COVID-19 Vaccine (4 - 2024-2 6 season) 2025 08/31/2021, 12/18/2020, 11/27/2020 Influenza Vaccine (#1) 2025 Dental X-Ray: Full Mouth 09/13/2025 09/12/2022 Zoster Vaccines (1 of 2) 2026 Lipid Panel 11/08/2027 11/07/2022 DTaP/Tdap/Td Vaccines (2 - T d or [...] Most Recently Relevant to Health Maintenance Insurance [place]
[2025-04-20 14:47] VITALS: BMI 48.9
== END 2025-04-16 09:39 | disposition home or self-care (01) ==
LOC: HO.ENCR 08:35
PROVIDERS: PCP Nurse Practitioner Family; Visit Provider Dietitian, Registered
DX: E66.01 Morbid (severe) obesity due to excess calories (principal)

== ENCOUNTER → 2025-04-16 08:34 | Outpatient (BNVA) | payer OTHER, SELFPAY | PROVIDERS: PCP Nurse Practitioner Family; Visit Provider Dietitian, Registered | DX: E66.01 Morbid (severe) obesity due to excess calories (principal); Z68.42 Body mass index [BMI] 45.0-49.9, adult | CPT/HCPCS: 97803 ==

== ENCOUNTER 2025-05-21 10:21 | Outpatient (AMB) | payer OTHER, SELFPAY ==
[2025-05-21 10:26] VITALS: BP 138/98; PULSE 76; RESP 16; O2SAT 98; BMI 49.9
--- NOTE | 2025-05-21 10:26 | A.OFFPC_ITS ---
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 Required: No Accompanied by: Self / Same As Patient Allergies No Known Allergies Allergy (Verified 05/21/25 10:31) Medication List - Last Reconciled 05/21/25 by LYDIA Zhang- albuterol sulfate 90 mcg/actuation 2 puffs inhalation Q6H PRN hydrochlorothiazide 12.5 mg PO QAM losartan 100 mg PO DAILY 90 days Zepbound (tirzepatide (weight loss)) 5 mg (0.5 mL) subcut QWEEK NS Tobacco use date assessed: 05/21/25 Dental Screening Dental Screen Date: 05/21/25 Did you have a dental visit in the last 12 months?: Yes Did you have a dental problem in the last 6 months where you did not have access to dental care?: No Was dental information given to patient?: Patient has dentist HPI 6 months f/up HPI Details Chief Complaint The patient presents with bilateral shoulder pain and is here for a follow-up on hypertension management. History of Present Illness The patient is a 50-year-old male presenting with hypertension and bilateral shoulder pain. Hypertension is being managed with medication, and the patient took his medication about an hour and a half before the visit. He is on a GLP-1 agonist and has started losing weight. The patient reports bilateral shoulder pain affecting his sleep, with pain across the entire shoulder region. Physical examination showed positive Neer's, Zaragoza', and Chloe's tests bilaterally. The plan includes shoulder x-rays and referral to physical therapy for stretching and exercise routines. requesting STD testing, denies any symptoms Social History Health Maintenance Review of Systems - Cardiovascular: Denies chest pain, den ies dyspnea, denies dizziness - Musculoskeletal: Reports bilateral yolanda ulder pain affecting sleep Physical Exam General: Cooperative, healthy appearing, comfortable, no acute distress and well developed Orientation: Patient oriented x3 Limitations: Bilateral shoulder pain interrupting sleep Head: Normal to inspection Ears: Hearing grossly normal bilaterally Nose: Normal external nose present Face and sinus: Normal facial exam Eyes: Appearance normal, both eyes and all related structures Neck: Normal visual inspection and Yes full ROM Respiratory: Normal respiratory effort and able to speak in complete sentences. Clear to auscultation bilaterally Cardiovascular: Regular rate and rhythm. Normal S1 and S2 GI: Normal to inspection. Soft to palpation and nontender Skin: No rashes or lesions noted Neuro: Patient oriented x3 Extremities: Positive Neer's, positive Zaragoza, positive Chloe's bilaterally in shoulders Results Plan 1. Hypertension The patient's hypertension is being managed with medication, and he reports taking his medication approximately an hour and a half before the visit. His blood pressure readings have improved, and he is also on a GLP-1 agonist, which has contributed to weight loss. 2. Bilateral Shoulder Pain The patient reports bilateral shoulder pain that is interrupting his sleep, with pain across the entire shoulder region. Physical examination revealed positive Neer's, Zaragoza', and Chloe's tests bilaterally. The plan includes obtaining shoulder x-rays and referring the patient to physical therapy for stretching and exercise routines. Discussion Notes I discussed with the patient the management of his hypertension, emphasizing the importance of medication adherence and lifestyle modifications. For his bilateral shoulder pain, I explained the need for x-rays and the benefits of physical therapy to improve mobility and reduce pain. Patient Instructions - Continue taking hypertension medicatio n as prescribed. - [facility]. - Get shoulder x-rays as scheduled. [facility] Medical History Diverticulosis DDD (degenerative disc disease), lumbar Dyslipidemia Sleep apnea GERD (gastroesophageal reflux disease) Hypertension Hx of gout Osteoarthritis Bilateral hand numbness Surgical History History of esophagogastroduodenoscopy (EGD) Hx of colonoscopy History of appendectomy Family History Father No problems noted. Mother HTN (hypertension) Diabetes mellitus Maternal Grandmother Myocardial infarction Social History Household Members: Significant Other and Children Household Members Other:: Mother Housing: House Alcohol intake: current Alcohol intake frequency: holidays/special occasions only Alcohol type: hard liquor Patient Tobacco Use Status: Former Tobacco user e-Cigarette/Vaping Use: Never Used service: No Current occupational status: unemployed Cognitive needs: No Hearing needs: No Vision needs: No Questionnaire PHQ-9 Over the last 2 weeks, how often have you been bothered by any of the following problems? 1. Little interest or pleasure in doing things: not at all 2. Feeling down, depressed, or hopeless: not at all 3. Trouble falling or staying asleep, or sleeping too much: not at all 4. Feeling tired or having little energy: several days 5. Poor appetite or overeating: not at all 6. Feeling bad about yourself - or that you are a failure or have let yourself or your family down: not at all 7. Trouble concentrating on things, such as reading the newspaper or watching television: not at all 8. Moving or speaking so slowly that other people could have noticed. Or the opposite - being so fidgety or restless that you have been moving around a lot more than usual: not at all 9. Thoughts that you would be better off or of hurting yourself in some way: not at all Total score: 1 Depression Screening Interpretation: Negative Depression Screening Done: Yes 56321 - PHQ-9 Billing: Yes Source: Developed by Drs. Norberto Cruz, Rosalia Alcocer, Farhat Diaz and colleagues, with an educational rajwinder from [employer]. Thrive Questionnaire Date Thrive assessed: 09/24/24 I am a: Patient What is your living situation today?: I have a steady place to live Within the past 12 months, did the food you bought not last and you didn't have the money to get more?: I choose not to answer this question Within the past 12 months, did you worry whether your food would run out before you got money to buy more?: I choose not to answer this question Do you have trouble paying for medicines?: No Do you have trouble getting transportation to medical appointments?: No Do you have trouble paying your heating and electricity bill?: No Do you have trouble taking care of your child, family member or friend?: No Do you have trouble with day-to-day activities such as bathing, preparing meals, shopping, managing finances, etc.?: No Are you currently unemployed and looking for a job?: No Are you interested in more education?: No Please select the resources that you would like help with: None Currently or been in a relationship where the following occur: I choose not to answer THRIVE Score: 0 ANSHUL-7 AMB Questionnaire ANSHUL-7 Date ANSHUL - 7 assessed: 09/24/24 Feeling nervous, anxious, or on edge: 0 = Not at all Not being able to stop or control worryin = Not at all Worrying too much about different things: 0 = Not at all Trouble relaxin = Not at all Being so restless that it is hard to sit still: 0 = Not at all Becoming easily annoyed or irritable: 0 = Not at all Feeling afraid as if something awful might happen: 0 = Not at all Total ANSHUL-7 score (0-4 normal; 5-9 mild; 10-14 moderate; 15-21 severe): 0 Source: Developed by Drs. Norberto Cruz, Rosalia Alcocer, Farhat Diaz and colleagues, with an educational rajwinder from [employer]. ANSHUL-7 Assessment Billing ANSHUL-7 Assessment Tool: ANSHUL-7 Assessment 84810 Physical exam (Primary Care) Vital Signs: Last Vital Signs Pulse 76 05/21/25 10:26 Resp 16 05/21/25 10:26 BP 138/98 H 05/21/25 10:26 Pulse Ox 98 05/21/25 10:26 Oxygen Delivery Method Room Air 05/21/25 10:26 BMI result Body Mass Index 49.9 Tobacco/Smoking Status: Tobacco use Status Tobacco use date assessed 05/21/25 05/21/25 10:32 Patient Tobacco Use Status Former Tobacco user 05/21/25 10:32 e-Cigarette/Vaping Use Never Used 05/21/25 10:32 PHQ-9: PHQ-9 Score PHQ-9: Total score 1 05/21/25 10:32 Depression Screening Interpretation: Negative Thrive Assessment: Date of Thrive Assessment Date Thrive assessed 09/24/24 05/21/25 10:32 Currently or been in a relationship where the following occur: I choose not to answer Coding Level of Care Code Est Pt Level 3 (32759) Diagnoses Hypertension I10 Bilateral shoulder pain M25.511; M25.512 Screen for STD (sexually transmitted disease) Z11.3 Additional Codes ANSHUL-7 Assessment Billing - ANSHUL-7 Assessment Tool: ANSHUL-7 Assessment 12740 ([id number]) PHQ-9 - 29520 - PHQ-9 Billing: Yes ([id number]) Assessment & Plan Assessment & Plan (1) Hypertension: Code(s): I10 - Essential (primary) hypertension Category: Medical (2) Bilateral shoulder pain: Code(s): M25.511 - Pain in right shoulder; M25.512 - Pain in left shoulder Category: Medical (3) Screen for STD (sexually transmitted disease): Code(s): Z11.3 - Encounter for screening for infections with a predominantly sexual mode of transmission Category: Medical Plan . Orders: Orders TSH reflex Free T4 Today I10 - Essential (primary) hypertension Lipid Panel Today I10 - Essential (primary) hypertension HIV Ab/Ag Today Z11.3 - Encounter for screening for infections with a predominantly sexual mode of transmission Syphilis Screen Today Z11.3 - Encounter for screening for infections with a predominantly sexual mode of transmission XR Shoulder Robert min 2V Today M25.511 - Pain in right shoulder, M25.512 - Pain in left shoulder PT Evaluation and Treatment Today M25.511 - Pain in right shoulder, M25.512 - Pain in left shoulder Complete Blood Count Auto Diff Today I10 - Essential (primary) hypertension Comprehensive Powell. Panel Fast Today I10 - Essential (primary) hypertension UA CC w/rflx Micro + Cult Today I10 - Essential (primary) hypertension CT NG by PCR Urine Today Z11.3 - Encounter for screening for infections with a predominantly sexual mode of transmission Hepatitis A,B,C Profile Today Z11.3 - Encounter for screening for infections with a predominantly sexual mode of transmission
--- OUTSIDE RECORDS SUMMARY | 2025-05-21 12:21 | XMS_ITS | Clinical Summary ---
Author Organization [facility] ity Address [address] [place] [address] Care Team Providers Care Lint Cleaner Name Role Phone Unavailable Primary Care Provider Unavailabl e Social History Tobacco Use Types Packs/Day Years Used Date Smoking Tobacco: Never Assessed Sex and Gender Information Value Date Recorded Sex Assigned at Not on file Legal Sex Male 3:42 PM EDT Gender Identity Not on file Sexual Orientation Not on file Plan of Treatment Health Maintenance Due Date Last Done Comments Colorectal Cancer Screening: Colonoscopy 1976 DTaP,Tdap,and Td Vaccines (1 - Tdap) 1995 Hepatitis B Vaccines (1 of 3 - 19+ 3-dose series) 1995 Cholesterol Screening (Lipid Panel) 05/25/2024 HIV Screening 05/25/2024 Hepatitis C Screening 05/25/2024 Social Influencers of Health Screening 05/25/2024 Depression Screening 07/30/2024 COVID-19 Vaccine (1 - 2023-2 5 season) 2025 Influenza Vaccine (#1) 2025 RSV Immunization Adult Patie nts (1 - 1-dose 75+ series) 2051 HIB [...]
--- OUTSIDE RECORDS SUMMARY | 2025-05-21 12:21 | XMS_ITS | Clinical Summary ---
Author Organization [facility] Address [address] [place] [phone] Phone Care Team Providers Care Blast Furnace Keeper Name Role Phone Wily Becerra NP Primary [...] protein shake or a protein bar or Palauan yogurt or cottage cheese to be consumed [...] protein shake or a protein bar or Palauan yogurt or cottage cheese to be consumed [...] VACCINE (#1) 2025 COVID-19 VACCINE (1 - 2024-2 6 season) 2025 CREATININE LEVEL 06/20/2025 06/20/2024, 11/07/2022 [...] EST) SODIUM 141 133 - 146 mmol/L [facility] POTASSIUM 3.8 3.3 - 5.1 mmol/L [facility] CHLORIDE 105 96 - 108 mmol/L [facility] CO2 26 21 - 35 mmol/L [facility] BUN 12 6 - 19 mg/dL [facility] CREATININE 0.80 0.5 - 1.5 mg/dL [facility] GLUCOSE 117(H) 70 - 99 mg/dL [facility] ALBUMIN 4.1 3.9 - 4.8 g/dL [facility] TOTAL PROTEIN 7.7 6.5 - 8.0 g/dL [facility] CALCIUM 9.6 8.4 - 10.3 mg/dL [facility] ALKALINE PHOSPHATASE 68 39 - 117 U/L [facility] TOTAL BILIRUBIN 0.4 0.0 - 1.2 mg/dL [facility] AST 25 0 - 37 U/L [facility] ALT 44(H) 0 - 40 U/L [facility] GLOBULIN 3.6 1 - 4.8 g/dL [facility] EGFR 109 >59 mL/min/1.7 3m2 [facility] Comment:Estimated glomerular filtration rate calculated using the CKD-EPI refit equation. ANION GAP 14 10 - 20 mmol/L [facility] Blood 06/20/2024 8:23 AM EST 06/20/2024 8:33 AM EST us Shanon Casarez MD LAB BLOOD ORDERABLES Final Result [facility] [address] [place] [address] * Lipid panel (06/20/2024 8:23 AM EST) HDL 45 mg/dL [facility] Comment: Interpretation <40 mg/dL: Low HDL cholesterol (major risk factor for CHD) Greater than or equal to 60 mg/dL: High HDL cholesterol ( negative risk factor for CHD) HDL - cholesterol is affected by a number of factors, e.g. smoking, excerise, hormones, sex and age. CHOLESTEROL 177 0 - 240 mg/dL [facility] TRIGLYCERIDES 87 30 - 160 mg/dL [facility] LDL 115 50 - 129 mg/dL [facility] Comment: LDL levels in terms of risk for coronary heart disease: <100 mg/dL: Optimal 100-129 mg/dL: Near or above optimal 130-159 mg/dL: Borderline high 160-189 mg/dL: High >190 mg/dL: Very High CARDIAC RISK RATIO 3.9 3.4 - 5.0 [facility] Blood 06/20/2024 8:23 AM EST 06/20/2024 8:33 AM EST us Shanon Casarez MD LAB BLOOD ORDERABLES Final Result [facility] [address] [place], [place] [id number] from Last 3 Months or Most Recently Relevant to Health Maintenance Insurance [facility] Care Teams Blast Furnace Keeper Relationship Specialty Start Date End Date Wily Becerra NP [address] [place] [id number] PCP - General Nurse Practitioner 09/26/22 Additional Source Comments The information contained in this document represents components of the legal health record. It is not the complete legal health record.[facility]
--- OUTSIDE RECORDS SUMMARY | 2025-05-21 12:21 | XMS_ITS | Clinical Summary ---
Author Organization [employer] Address [address] [place] [address] [address] [place] [address] Care Team Providers Care Stemming Machine Operator Name Role Phone Unavailable Primary Care [...]
== END 2025-05-21 10:58 | disposition home or self-care (01) ==
PROVIDERS: PCP Nurse Practitioner Family; Visit Provider Nurse Practitioner Family
DX: I10 Essential (primary) hypertension (principal); M25.511 Pain in right shoulder; M25.512 Pain in left shoulder; Z11.3 Encounter for screening for infections with a predominantly sexual mode of transmission

== ENCOUNTER 2025-05-21 10:21 | Outpatient (REF) | payer OTHER, SELFPAY ==
--- NOTE | ~2025-05-21 | XR_ITS ---
EXAMINATION: X-ray bilateral shoulders CLINICAL INFORMATION: Bilateral shoulder pain COMPARISON: None TECHNIQUE: Left shoulder 3 views. Right shoulder 3 views. FINDINGS: Left shoulder: Mild acromioclavicular arthritis. Mild-moderate glenohumeral arthritis. No visible acute fracture, dislocation or suspicious bony lesion. No abnormal soft tissue calcification. No suspicious findings in the visualized left lung. Right shoulder: Mild glenohumeral arthritis. Small corticated chronic appearing ossification along the distal clavicle; slight acromioclavicular malalignment. These findings could be related to prior trauma, postsurgical changes. 0.6 cm calcification/ossification superior to the greater tuberosity, could reflect hydroxyapatite calcification versus sequela of remote trauma. There is mild sclerosis in the underlying greater tuberosity. No suspicious lung findings. XR/XR Shoulder Robert min 2V IMPRESSION: Left shoulder: Arthritis as above. No acute osseous finding seen. Right shoulder: *Mild glenohumeral arthritis. *Acromioclavicular chronic appearing findings, could be related to old trauma, postsurgical changes. *A 0.6 cm calcification adjacent to greater tuberosity could reflect hydroxyapatite calcification versus sequela of remote trauma. Electronically signed by: Carlos Camp MD 05/21/2025 02:26 PM EDT
[2025-05-21 13:08] LABS: MANUAL DIFF FLAG NO
[2025-05-21 13:15] LABS: Appearance Urine Clear; Glucose Urine UA Negative (Negative); PH 5.5 (5.0-9.0); Specific Gravity - Urine >= 1.030 (1.005-1.025)
[2025-05-21 13:22] LABS: Hematocrit 47.9 % (42.0-52.0); Hemoglobin 16.4 g/dl (14.0-18.0); Imm Gran Abs Auto 0.02 X10*3/uL (0.00-0.03); Imm Gran Pct Auto 0.3 % (0.0-0.4); Lymphocytes Absolute Auto 2.1 X10*3/uL (1.2-4.9); Mean Corpuscular HGB Conc 34.2 g/dl (31.0-36.0); Mean Corpuscular Hemoglobin 30.8 pg (27.0-33.0); Mean Corpuscular Volume 90.0 fL (80.0-98.0); NRBC Abs Auto 0.000 X10*3/uL (0.0-0.012); NRBC Pct Auto 0.0 /100WBC (0.0-0.2); Platelet Count 248 X10*3/uL (160-400); Red Blood Count 5.32 X10*6/uL (4.60-5.80); White Blood Count 6.6 X10*3/uL (4.8-10.8)
--- OUTSIDE RECORDS SUMMARY | 2025-05-21 13:41 | XMS_ITS | Data Portability ---
Author Organization [facility] Patient Home Address [address] [place] [address] Assessment No assessment recorded. Plan of Treatment [...] tbalicki Sheryl Colon MD, [address], [place], [address], 8 14:14:21 gastroente rologist referral 2017 018 winston Vallecillo MD, [address] [place] [address] , [place] [address], [place], [address], 8 11:51:57 Procedures None recorded. Surgeries None recorded. Imaging electrocar diogram 2017 018 [facility], [address], [address], [place], [address], 8 16:40:53 Medication Orders Diflucan 150 mg tablet 2017 018 [id number], [address] [place], [id number], 8 12:28:45 Patient Targets Encounter Date Encounter Id Patient Goals Patient Target Last Modified By Organization Details Last Modified Time 2018 [id number] weight loss esalexwsamanda Not available 12:27:29 Patient Instructions Encounter Date Encounter Id Patient Instructions Last Modified By Organization Details Last Modified Time 2018 [id number] liver disease diet: care instructions esalexwsamanda Not available 2018 12:05:05 learning about diverticulosis and diverticulitis esalexwski Not available 2018 12:05:05 Seek emergent ca re if abdominal pain recurs esalexwsamanda Not available 2018 12:26:40 healthy diet/exercise. f/u 4-6 weeks, check labs and evaluate weight & BP essurinder Not available 2018 12:27:19 Reason for Referral Grain Trimmer Referral for C andidiasis of skin Referring Physician: Ludmila Shrestha, Internal Medicine, Encounter Date: 2018 Flatwork Supervisor Referral for Diverticulitis diverticulitis with abscess Referring Physician: Ludmila Shrestha, Internal Medicine, Encounter Date: 2018 Results Created Date Observation Date Name Description Value Unit Range Abnormal Flag Note LastModifiedBy Organization Detail LastModifiedTime 03/27/20 18 2018 mundo powell am Rate & Rhythm Not Available [facility] [address], [place], [address], 2018 12:08:37 03/27/20 18 2018 mundo powell am QRS Not Available [facility] [address], [place], [address], 2018 12:08:37 03/27/20 18 2018 elect rocar diogr am IL Interval Not Available [facility] [address], [place], [address], 2018 12:08:37 03/27/20 18 2018 elect rocar diogr am QRS Duration Not Available [facility] [address], [place], [address], 2018 12:08:37 03/27/20 18 2018 elect rocar diogr am QT Interval Not Available [facility] [address], [place], [address], 2018 12:08:37 Result Notes None recorded. Problems Name Problem SNOMED Code Status Onset Date Resolution Date Notes Provider Name and Address Organization Details Recorded Time Essential hypertensi on 26401477 [facility] 8 15:38:57 Gout 84553545 Active 2017 Christine Valadez [facility] 8 15:39:08 Sleep apnea 15616801 Active 2017 Christinedebbi Valadez [facility] 8 15:39:19 Obesity 922723684 Active 2017 Christinedebbi Valadez [facility] 8 15:39:29 Hyperchole sterolemia 65633244 Active 2017 [facility] 8 15:39:38 Diverticul itis of colon 682397982 Active 2017 Ludmila Shrestha NP, [address] [place] [address], [address], [facility] 8 12:04:24 Steatohepa titis 954541309 Active 2017 Ludmila Shrestha NP, [address] [place] [address], [address], [facility] 8 12:22:52 Tubular adenoma 996424802 Active 2018 colon 10/2018 Ludmila Shrestha NP, [address] [place], [address], [facility] 9 08:43:02 Problem Notes None recorded. Procedures Surgical History Date Name Laterality Status Provider Name and Address Organization Details Recorded Time 11/23/19 19 colonoscopy completed Ludmila Shrestha NP, [address] [place], [address], [facility] 11/26/2018 [...] in Arterial blood by Pulse oximetry Systolic And Diastolic Provider Name and Address Organization Details Last Updated DateTime 8 685136. 36 g 53 kg/m2 170.82 cm 105 /min 98 % 98 % 150/96 mm[Hg] Christine Balicki [facility] 8 11:47:43 Social History Question Answer Notes LastModified by Organizat ion Details LastModified Time Tobacco Smoking Status Former Smoker Not Available [facility] 06/01/2020 03:36:24 What Was The Date Of Your Most Recent Tobacco Screening? 2018 [id number] Information not available 06/01/2020 Sex: Unknown Functional Status None recorded. Mental Status None recorded. Family History Nothing Reported. Medical History No medical history recorded. 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 K76.0 Hypercholesterolemia 136 59527 E78.00 Essential hypertension 25033387 I10 increase losartan to 100mg Obesity 286149872 E66.9 Atypical chest pain 1025 79501 R07.89 Candidiasis of skin 4988 3006 B37.2 Health Concerns Section Related Observation LastModified by Organization Detai ls LastModified Time None Recorded Concern Status LastModified by Organization Details LastModified Time None Recorded Advance Directives Directive None Recorded Payers Insurance Date Sequence Insurance Name Policy Number Policy Estrada Covered Member ID Estrada Member ID Guarantor Name 10/25/[address] [place] [address] [id number] [facility] [id number] [facility] Notes Date Note Type Note Provider Name a nd Address Organization Details Recorded Time 2018 text/html ROS as noted in the HPI Hospital f/u re: diverticulitis Has appt with [...] neck, spreading Ludmila Shrestha NP, [address] [place], [address], [facility] 2018 12:32:29
[2025-05-21 13:44] LABS: Alanine Aminotransferase 34 U/L (0-40); Albumin Level 4.3 g/dL (3.5-5.0); Alkaline Phosphatase 60 U/L (39-117); Anion Gap 12 (12-20); Aspartate Amino Transferase 32 U/L (5-37); Blood Urea Nitrogen 8 mg/dL (9-16); Calcium 9.2 mg/dL (8.4-10.2); Carbon Dioxide 25 mmol/L (22-29); Chloride 108 mmol/L (96-108); Cholesterol 178 mg/dL (<200); Estimated Glomerular Filt Rate > 60; HDL Cholesterol 45 mg/dL (>40); Potassium 3.9 mmol/L (3.3-5.1); Sodium 141 mmol/L (135-145); Total Protein 7.3 g/dL (6.5-8.0); Triglycerides 87 mg/dL (<150)
[2025-05-21 15:14] LABS: CT PCR Urine NOT DETECTED (Not Detect.); NG PCR Urine NOT DETECTED (Not Detect.)
[2025-05-22 04:04] LABS: Syphilis Screen Nonreactive (Nonreactive)
[2025-05-22 04:24] LABS: HBc Num1 0.07 S/CO (0.00-0.79); HBsAGNum1 0.33 S/CO (0.00-0.99); Hepatitis A Antibody IgM 0.15 Index (0-0.79); Hepatitis B Surface Antigen Negative (Negative); ~HepC Num1 0.08 S/CO (0.00-0.79); ~Hepatitis A Antibody IgM Nonreactive (Nonreactive); ~Hepatitis C Antibody Nonreactive (Nonreactive)
[2025-05-22 04:33] LABS: HBS Num1 2.78 mIU/mL (0-7.99); HIV Num 1 0.05 S/CO (0.00-0.99); ~Hepatitis B Surface Antibody NONREACTIVE (Nonreactive)
== END 2025-05-21 10:22 | disposition home or self-care (01) ==
LOC: HO.HMGCX 10:21
PROVIDERS: PCP Nurse Practitioner Family; Visit Provider Nurse Practitioner Family
DX: M25.511 Pain in right shoulder (principal); M25.512 Pain in left shoulder; I10 Essential (primary) hypertension; Z20.2 Contact with and (suspected) exposure to infections with a predominantly sexual mode of transmission
CPT/HCPCS: 73030; 80053; 80061; 81003; 84443; 85025; 86704; 86706; 86709; 86780; 86803; 87340; 87389; 87491; 87591; 96127

== ENCOUNTER → 2025-05-21 11:03 | Outpatient (BNV) | payer OTHER, SELFPAY | PROVIDERS: PCP Nurse Practitioner Family; Visit Provider Radiology Diagnostic Ultrasound | DX: M19.011 Primary osteoarthritis, right shoulder (principal); M19.012 Primary osteoarthritis, left shoulder | CPT/HCPCS: 73030 ==

== ENCOUNTER 2025-06-17 08:26 | Outpatient (AMB) | payer OTHER, SELFPAY ==
--- NOTE | 2025-06-17 08:30 | A.OFFVIS_ITS ---
Vital Signs 06/17/25 08:32 Height 5 ft 6 in Weight 299 lb 13.259 oz BMI 48.4 BP 132/88 Blood Pressure Location Rt brachial Position Sitting Pulse 85 Pulse Source Pulse Oximeter Pulse Oximetry (%) 97 Oxygen Delivery Method Room Air Intake Visit Reasons: Obesity Intake Note: Patient present today for Obesity follow up. Life Insurance Specialist Required: No Accompanied by: Self / Same As Patient Allergies No Known Allergies Allergy (Verified 06/17/25 08:33) Medication List - Last Reconciled 06/17/25 by Norberto Costa MD albuterol sulfate 90 mcg/actuation 2 puffs inhalation Q6H PRN hydrochlorothiazide 12.5 mg PO QAM losartan 100 mg PO DAILY 90 days meloxicam 15 mg PO DAILY PRN 30 days Zepbound (tirzepatide (weight loss)) 50 mg (5 mL) subcut QWEEK NS HPI Comments Details: This is a 50-year-old male sent to endocrinology for evaluation of obesity. Patient states weight gain of yrs over 60 lbs over last yr . Patient has tried diets of exercise, keto, weight watchers , protein shakes . He was prescribed Wegovy by his primary care provider but insurance didn't cover . Was in bariatric program in [place] but on pause. . He has not been any other weight loss medications. He has a history of elevated liver enzymes and degenerative disc disease in lumbar spine. There is no history of thyroid problems or symptoms of hypothyroidism. This is a normal TSH in April 2024. There are no symptoms of Alisha syndrome. No hx of diabetes but mother and grandmother do. Currently on Zepbound 5 mg Q weekly . Lost 46 lb since last visit [facility] Medical History Diverticulosis DDD (degenerative disc disease), lumbar Dyslipidemia Sleep apnea GERD (gastroesophageal reflux disease) Hypertension Hx of gout Osteoarthritis Bilateral hand numbness Surgical History History of esophagogastroduodenoscopy (EGD) Hx of colonoscopy History of appendectomy Family History Father No problems noted. Mother HTN (hypertension) Diabetes mellitus Maternal Grandmother Myocardial infarction Social History Household Members: Significant Other and Children Household Members Other:: Mother Housing: House Alcohol intake: current Alcohol intake frequency: holidays/special occasions on ly Alcohol type: hard liquor Patient Tobacco Use Status: Former Tobacco user e-Cigarette/Vaping Use: Never Used service: No Current occupational status: unemployed Cognitive needs: No Hearing needs: No Vision needs: No Physical Exam Vital Signs: Last Vital Signs Pulse 85 06/17/25 08:32 BP 132/88 06/17/25 08:32 Pulse Ox 97 06/17/25 08:32 Oxygen Delivery Method Room Air 06/17/25 08:32 BMI result Body Mass Index 48.4 Assessment & Plan Assessment & Plan (1) Morbid obesity: Code(s): E66.01 - Morbid (severe) obesity due to excess calories Category: Medical Plan: This is a 50-year-old male with a history of morbid obesity. There is no clear underlying endocrine etiology. He is currently on Zepbound 5 mg Q weekly. He continues to lose weight Continue current plan. We will talk to patient about Rosenda self way pay if insurance will not cover the Zepbound in future Medications: New Zepbound (tirzepatide (weight loss)) 5 mg (0.5 mL) subcut QWEEK 2 mL 4RF NS Discontinued Zepbound (tirzepatide (weight loss)) Discontinued Reason: Doctor's Order 50 mg (5 mL) subcut QWEEK 2 mL 3RF NS Coding Level of Care Code Est Pt Level 3 (22503) Diagnoses Morbid obesity E66.01
[2025-06-17 08:32] VITALS: BP 132/88; PULSE 85; O2SAT 97; BMI 48.4
--- OUTSIDE RECORDS SUMMARY | 2025-06-17 16:10 | XMS_ITS | Patient Health Record ---
Author Organization [facility] Address [address] [place] [address] Care Team Providers Care Erection Shop Supervisor Name Role Phone Xander Estrada Primary Care Provider UnavailWander Mariano Jr Unavailable [phone] Fady STATON, Ludmila Unavailable Unavailable Reason For Referral No Information Medications Medication SIG (Take, Route, Frequency, Duration) Notes Start Date End Date Status Losartan Potassium 100 MG Tablet take 1 tablet by mouth once daily Oral; Duration: 90 Active Pravastatin Sodium 20 MG Tablet take 1 tablet by mouth once daily Oral; Duration: 90 Active Colyte with Flavor Packs 240 GM Solution Reconstituted As directed Orally Over the specified time.; Duration: 1 day(s) 08/21/2018 Active Omeprazole 40 MG Capsule Delayed Release take 1 capsule by mouth once daily Oral Once a day Active Allopurinol 300 MG Tablet 1 tablet Oral Once a day Active Social History Tobacco Use: Social History Observation Description Date Details (start date - stop date) Former Smoker NA - NA Social History Drugs/Alcohol: Social Info Question Answer Notes Alcohol Screen Did you have a drink containing alcohol in the past year? Yes How often did you have a drink containing alcohol in the past year? 2 to 4 times a month (2 points) How many drinks did you have on a typical day when you were drinking in the past year? 3 or 4 drinks (1 point) How often did you have 6 or more drinks on one occasion in the past year? Never (0 point) Points 3 Interpretation Negative Tobacco Use: Social Info Question Answer Notes Tobacco Use/Smoking Patient is a former smoker How long has it been since you last smoked? 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 Problems Problem Type SNOMED Code ICD Code Onset Dates Problem Status W/U Status Risk Notes Problem Diverticulitis of colon (807756142) Diverticulitis of large intestine without perforation or abscess without bleeding (K57.32) Active confirmed Plan Of Treatment Future Test Test Name Order Date COLONOSCOPY 08/21/2018 Insurance Providers Payer Name Payer Address Payer Phone Subscriber Number Group Number Insured Name Patient Relationship to Insured Coverage Start Date Coverage End Date [address] [place] [phone] [id number] MARKUS SANDRA Self - patient is the insured Medical (General) History Medical History History ICD Code hypertension gout gastroesophageal reflux disease elevated cholesterol diverticulitis Surgical History Surgery Date(Month/Year) appendectomy bone spurs right shoulder
--- OUTSIDE RECORDS SUMMARY | 2025-06-17 16:10 | XMS_ITS | Data Portability ---
Author Organization [facility] Patient Home Address [address] [place] [address] Assessment No assessment recorded. Plan of Treatment [...] tbalicki Sheryl Colon MD, [address], [place], [address], 8 14:14:21 gastroente rologist referral 2017 018 winston Vallecillo MD, [address] [place] [address] , [place] [address], [place], [address], 8 11:51:57 Procedures None recorded. Surgeries None recorded. Imaging electrocar diogram 2017 018 [email or web address] [facility], [address] [facility], [address], [place], [address], 8 16:40:53 Medication Orders Diflucan 150 mg tablet 2017 018 INTERFACE [id number], [address] [facility], [id number], 8 12:28:45 Patient Targets Encounter Date Encounter [...] Not available 2018 12:27:19 Reason for Referral Ell Tutor Referral for C andidiasis of skin Referring Physician: Ludmila Shrestha, Internal Medicine, Encounter Date: 2018 Fisher Oyster Referral for Diverticulitis diverticulitis with abscess Referring Physician: Ludmila Shrestha, Internal Medicine, Encounter Date: 2018 Results Created Date Observation Date Name Description Value Unit Range Abnormal Flag Note LastModifiedBy Organization Detail LastModifiedTime 03/27/20 18 2018 mundo powell am Rate & Rhythm Not Available [facility] [address] [facility] [address], [place], [address], 2018 12:08:37 03/27/20 18 2018 mundo powell am QRS Not Available [facility] [address] [facility] [address], [place], [address], 2018 12:08:37 03/27/20 18 2018 elect rocar diogr am AL Interval Not Available [facility] [address] [facility] [address], [place], [address], 2018 12:08:37 03/27/20 18 2018 elect rocar diogr am QRS Duration Not Available [facility] [address] [facility] [address], [place], [address], 2018 12:08:37 03/27/20 18 2018 elect rocar diogr am QT Interval Not Available [facility] [address] [facility] [address], [place], [address], 2018 12:08:37 Result Notes None recorded. Problems Name Problem SNOMED Code Status Onset Date Resolution Date Notes Provider Name and Address Organization Details Recorded Time Essential hypertensi on 73428406 Active [facility] 15:38:57 Gout 43685628 Active 2017 Christine Valadez [facility] 8 15:39:08 Sleep apnea 64422211 Active 2017 Christinedebbi Valadez [facility] 8 15:39:19 Obesity 178353210 Active 2017 Christinedebbi Valadez [facility] 8 15:39:29 Hyperchole sterolemia 90768543 Active 2017 [facility] 8 15:39:38 Diverticul itis of colon 015926435 Active 2017 Ludmila Shrestha NP, S [address] [place] [address], [address], [facility] 8 12:04:24 Steatohepa titis 696228577 Active 2017 Ludmila Shrestha NP, S [address] [place] [address], [address], [facility] 8 12:22:52 Tubular adenoma 904590280 Active 2018 colon 10/2018 Ludmila Shrestha NP, [address] [place], [address], [facility] 9 08:43:02 Problem Notes None recorded. Procedures Surgical History Date Name Laterality Status Provider Name and Address Organization Details Recorded Time 11/23/19 19 colonoscopy completed Ludmila Shrestha NP, S [address] [place], [address], [facility] 11/26/2018 08:43:26 Imaging Results None [...] Address Organization Details Last Updated DateTime 8 138882. 36 g 53 kg/m2 170.82 cm 105 /min 98 % 98 % 150/96 mm[Hg] Christine Balicki [facility] 8 11:47:43 Social History Question Answer Notes LastModified by Organizat ion Details LastModified Time Tobacco Smoking Status Former Smoker Not Available [facility] 06/01/2020 03:36:24 What Was The Date Of Your Most Recent Tobacco Screening? 2018 [id number] Information not available 06/01/2020 Sex: Unknown Functional Status None recorded. Mental Status None recorded. Family History Nothing Reported. Medical History No medical history recorded. Past Encounters Encounter ID Performer Location Encounter Start Date Encounter Closed Date Diagnosis/Indication Diagnosis SNOMED-CT Code Diagnosis ICD10 Code Diagnosis IMO Codes Diagnosis Note [id number] Xander Estrada DO [facility] [address] [facility],[place] [address] 2018 11:40:38 2018 16:40:52 Diverticulitis 619882639 K57.92 Steatotic liver disease 201928492 K76.0 Hypercholesterolemia 136 88807 E78.00 Essential hypertension 04233820 I10 increase losartan to 100mg Obesity 062813049 E66.9 Atypical chest pain 1025 37722 R07.89 Candidiasis of skin 4988 3006 B37.2 Health Concerns Section Related Observation LastModified by Organization Detai ls LastModified Time None Recorded Concern Status LastModified by Organization Details LastModified Time None Recorded Advance Directives Directive None Recorded Payers Insurance Date Sequence Insurance Name Policy Number Policy Estrada Covered Member ID Estrada Member ID Guarantor Name 10/25/[address] [place] [address] [id number] [facility] [id number] [facility] Notes Date Note Type Note Provider [...] neck, spreading Ludmila Shrestha NP, [address] [place], [address], [facility] 2018 12:32:29
--- OUTSIDE RECORDS SUMMARY | 2025-06-17 16:10 | XMS_ITS | Clinical Summary ---
Author Organization [facility] Address [address] [place] [address] Phone Care Team Providers Care Bristle Machine Operator Name Role Phone Wily Becerra NP Primary [...] protein shake or a protein bar or Citizen [place] yogurt or cottage cheese to be consumed [...] protein shake or a protein bar or Citizen [place] yogurt or cottage cheese to be consumed [...] patient's age to complete this topic IPV VACCINES Aged Out No longer eligi ble [...] BMI of 50.0-59.9, adult COMPREHENSIVE METABOLIC PANEL (CMP) Routine 06/20/2024 8:23 AM EST Morbid obesity with BMI of 50.0-59.9, adult from Last 3 Months or Most Recently Relevant to Health Maintenance Results * (ABNORMAL) Comprehensive metabolic panel (06/20/2024 8:23 AM EST) SODIUM 141 133 - 146 mmol/L [facility] POTASSIUM 3.8 3.3 - 5.1 mmol/L [facility] CHLORIDE 105 96 - 108 mmol/L [facility] CO2 26 21 - 35 mmol/L [facility] BUN 12 6 - 19 mg/dL [facility] CREATININE 0.80 0.5 - 1.5 mg/dL [facility] GLUCOSE 117(H) 70 - 99 mg/dL [facility] ALBUMIN 4.1 3.9 - 4.8 g/dL [facility] TOTAL PROTEIN 7.7 6.5 - 8.0 g/dL [facility] CALCIUM 9.6 8.4 - 10.3 mg/dL [facility] ALKALINE PHOSPHATASE 68 39 - 117 U/L [facility] TOTAL BILIRUBIN 0.4 0.0 - 1.2 mg/dL [facility] AST 25 0 - 37 U/L [facility] ALT 44(H) 0 - 40 U/L [facility] GLOBULIN 3.6 1 - 4.8 g/dL [facility] EGFR 109 >59 mL/min/1.7 3m2 [facility] Comment:Estimated glomerular filtration rate calculated using the CKD-EPI refit equation. ANION GAP 14 10 - 20 mmol/L [facility] Blood 06/20/2024 8:23 AM EST 06/20/2024 8:33 AM EST us Shanon Casarez MD LAB BLOOD BKR ORDERABLES F inal Result [facility] [address] [place] [address] * Lipid panel (06/20/2024 8:23 AM EST) HDL 45 mg/dL [facility] Comment: Interpretation <40 mg/dL: Low HDL cholesterol (major risk factor for CHD) Greater than or equal to 60 mg/dL: High HDL cholesterol ( negative risk factor for CHD) HDL - cholesterol is affected by a number of factors, e.g. smoking, excerise, hormones, sex and age. CHOLESTEROL 177 0 - 240 mg/dL [facility] TRIGLYCERIDES 87 30 - 160 mg/dL [facility] LDL 115 50 - 129 mg/dL [facility] Comment: LDL levels in terms of risk for coronary heart disease: <100 mg/dL: Optimal 100-129 mg/dL: Near or above optimal 130-159 mg/dL: Borderline high 160-189 mg/dL: High >190 mg/dL: Very High CARDIAC RISK RATIO 3.9 3.4 - 5.0 C [facility] Blood 06/20/2024 8:23 AM EST 06/20/2024 8:33 AM EST us Shanon Casarez MD LAB BLOOD BKR ORDERABLES F inal Result Performing Organization Address City/State/[facility] Co de Phone Number [address] [address] from Last 3 Months or Most Recently Relevant to Health Maintenance Insurance O O O O O [facility] HMO [facility] Address: [address] [address] Care Teams Bristle Machine Operator Relationship Specialty Start Date End Date Wily Becerra NP [address] [place] [address] PCP - General Nurse Practitioner 09/26/22 Additional Source Comments The information contained in this document represents components of the legal health record. It is not the complete legal health record.[facility]
--- OUTSIDE RECORDS SUMMARY | 2025-06-17 16:10 | XMS_ITS | Clinical Summary ---
Author Organization [facility] Address [address] [place] [address] Care Team Providers Care Manager Primary Name Role Phone Unavailable Primary Care Provider [...] Depression Screening 07/30/2024 COVID-19 Vaccine (1 - 2024-2 6 season) 2025 Influenza Vaccine (#1) 2025 RSV [...]
--- OUTSIDE RECORDS SUMMARY | 2025-06-17 16:10 | XMS_ITS | Patient Health Record ---
Author [facility] Address [address] [place] [address] Care Team Providers Care Air Brakes Inspector Name Role Phone Rashaad Rothman MD Primary Care Provider Unavaila Donnell Baker Unavailable [phone] Reason For Referral No Information Medications Medication SIG (Take, Route, Frequency, Duration) Notes Start Date End Date Status Indomethacin 25 MG 1 capsule with food Orally Twice a day; Duration: 30 day(s) Active Lisinopril 10 MG 1 tablet Orally Once a day; Duration: 30 day(s) Active Pravastatin Sodium 10 MG 1 tablet Orally Once a day; Duration: 30 day(s) Active Nabumetone 500 MG 1 tablet Orally Twic e a day; Duration: 30 day(s) 12/24/2014 Active Colcrys 0.6 MG 1 tablet Orally Once a day; Duration: 30 day(s) 12/24/2014 Active Problems Problem Type SNOMED Code ICD Code Onset Dates Problem Status W/U Status Risk Notes Problem Disorder of joint of ankle and/or foot (328122428) Arthritis - Degenerative (719.97) Active confirmed Problem Congenital pes planus (37595752) Flat Foot, Congenital (754.61) Active confirmed Problem Gout (25479219) Gout (274.9) Active confirmed Problem Pain in limb (41601833) Pain in Limb (729.5) Active confirmed Problem Tibialis tendinitis (25325133) Posterior Tibial Tendonitis (726.72) Active confirmed Plan Of Treatment Pending Test Test Name Order Date *Uric Acid, Serum 01/29/2013 *Sedimentation Rate-Westergren 3 X ray : Foot, left 3V 01/29/2013 Insurance Providers Payer Name Payer Address Payer Phone Subscriber Number Group Number Insured Name Patient Relationship to Insured Coverage Start Date Coverage End Date [facility] [address] [place] [address] [id number] Morris Benitez Self - patient is the insured Medical (General) History Medical History History ICD Code asthma hypertension hyperlipidemia Gout Surgical History Surgery Date(Month/Year) appendectomy shoulder surgery
--- OUTSIDE RECORDS SUMMARY | 2025-06-17 16:10 | XMS_ITS | Clinical Summary ---
Author Organization [facility] Address [address] [place] [address] [address] [place] [address] Care Team Providers Care Dope Mixer Name Role Phone Unavailable Primary Care Provider [...]
== END 2025-06-17 08:49 | disposition home or self-care (01) ==
LOC: HO.ENCR 08:27
PROVIDERS: PCP Nurse Practitioner Family; Visit Provider Internal Medicine Endocrinology, Diabetes & Metabolism
DX: E66.01 Morbid (severe) obesity due to excess calories (principal)
CPT/HCPCS: 99213

== ENCOUNTER 2025-07-15 08:31 | Outpatient (AMB) | payer OTHER, SELFPAY ==
[2025-07-15 08:36] VITALS: BMI 48.3
--- NOTE | 2025-07-15 08:36 | A.OFFVIS_ITS ---
VS Expanded 07/15/25 08:36 Height 5 ft 6 in Weight 299 lb BMI 48.3 Intake Visit Reasons: obesity Allergies No Known Allergies Allergy (Verified 06/17/25 08:33) Nutrition Presentation Details: Pt presents for MNT f/u for Obesity Pt reports : -having small meals however noticing lately increasing carbs and reducing protein. : Working on lessening fried foods :choosing water, fruit/herb infused water, choosing low sugar beverages, reading food labels, fluids per day: 64 -72 oz/d fruits: 2/d fish: 0-1/wk ve-4 x/wk dairy: 2-3/d fried foods 1x/wk protein : 70-100 g/d BS Monitoring Most Recent Diabetes Results: Cholesterol, (<200) 178 mg/dL 05/21/25 HDL Cholesterol, (>40) 45 mg/dL 05/21/25 Triglycerides, (<150) 87 mg/dL 05/21/25 Creatinine, (0.5-1.4) 0.85 mg/dL 05/21/25 BUN, (9-16) 8 mg/dL L 05/21/25 Sodium, (135-145) 141 mmol/L 05/21/25 Potassium, (3.3-5.1) 3.9 mmol/L 05/21/25 Chloride, (96-108) 108 mmol/L 05/21/25 Carbon Dioxide, (22-29) 25 mmol/L 05/21/25 Calcium, (8.4-10.2) 9.2 mg/dL 05/21/25 AST, (5-37) 32 U/L 05/21/25 ALT, (0-40) 34 U/L 05/21/25 Total Protein, (6.5-8.0) 7.3 g/dL 05/21/25 Albumin, (3.5-5.0) 4.3 g/dL 05/21/25 [facility] Medical History Diverticulosis DDD (degenerative disc disease), lumbar Dyslipidemia Sleep apnea GERD (gastroesophageal reflux disease) Hypertension Hx of gout Osteoarthritis Bilateral hand numbness Surgical History History of esophagogastroduodenoscopy (EGD) Hx of colonoscopy History of appendectomy Family History Father No problems noted. Mother HTN (hypertension) Diabetes mellitus Maternal Grandmother Myocardial infarction Social History Household Members: Significant Other and Children Household Members Other:: Mother Housing: House Alcohol intake: current Alcohol intake frequency: holidays/special occasions only Alcohol type: hard liquor Patient Tobacco Use Status: Former Tobacco user e-Cigarette/Vaping Use: Never Used service: No Current occupational status: unemployed Cognitive needs: No Hearing needs: No Vision needs: No Assessment & Plan Assessment & Plan (1) Morbid obesity: Code(s): E66.01 - Morbid (severe) obesity due to excess calories Category: Medical Plan: Wt: 160 Kg ( 09/23 ), 159 (10/21), 153 (01/21), 137 kg (04/23), 135 kg(07/23) Est kcal needs as per MSJ: 2500 (40% carb, 30% protein/fat) Est fluid needs as per 25-30 ml/d: 4000 Est prot per day as per 1 g/kg bw: 140 Recommend fiber intake : 8-10 g per day and gradually increase to 25-28 g per day for women and 35-38 g for men or as tolerated Recommend sodium intake per day : less than 2300 mg Educated patient on: ( R = reviewed V = verbalizes understanding N/R = needs review N/A = not applicable * Food sources of carbohydrate, adequate serving sizes and its role in various health conditions: R * Differences between complex carbohydrates a simple carbohydrates, role of fiber in diet: R * Lean protein sources of foods: R * Differences between types of fats and role in diet (mono on saturated fat fatty acids, saturated fatty acids, trans fats): R * Food sources of sodium in salt and healthy modifications for heart health in kidney health: R * Vitamins and minerals, anti inflammatory properties : R V N/R * Healthy plate method concept: R , v * Physical activity: Benefits a precaution: R ,V * Patient Instructions: Choose low fat cooking methods Resume watching total amount of protein distributed throughout the day: Example: B: 30 g protein/20 g carb L: 5-6 oz of lean protein and 45-60 g carbs including non sta rchy vegetables snack: 20 g protein and 2 fruit dinner : 5-6 oz of protein and following healthy plate method (60 g carbs, and non starchy veg snack : 20 g protein + 40 g carb Keep hydrated by having water with meals and snacks abstain from empty calorie foods /beverages Coding Level of Care Code Nutr Indiv Subseq (44902) Diagnoses Morbid obesity E66.01 Time Spent (min) 20
--- OUTSIDE RECORDS SUMMARY | 2025-07-15 08:48 | XMS_ITS | Clinical Summary ---
Author Organization [facility] Address [address] [place] [address] Phone Care Team Providers Care Airplane Tester Name Role Phone Wily Becerra NP Primary [...] protein shake or a protein bar or Macedonian yogurt or cottage cheese to be consumed [...] protein shake or a protein bar or Macedonian yogurt or cottage cheese to be consumed [...] EST) SODIUM 141 133 - 146 mmol/L [facility] POTASSIUM 3.8 3.3 - 5.1 mmol/L [facility] CHLORIDE 105 96 - 108 mmol/L [facility] CO2 26 21 - 35 mmol/L [facility] BUN 12 6 - 19 mg/dL [facility] CREATININE 0.80 0.5 - 1.5 mg/dL [facility] GLUCOSE 117(H) 70 - 99 mg/dL [facility] ALBUMIN 4.1 3.9 - 4.8 g/dL [facility] TOTAL PROTEIN 7.7 6.5 - 8.0 g/dL [facility] CALCIUM 9.6 8.4 - 10.3 mg/dL [facility] ALKALINE PHOSPHATASE 68 39 - 117 U/L [facility] TOTAL BILIRUBIN 0.4 0.0 - 1.2 mg/dL [facility] AST 25 0 - 37 U/L [facility] ALT 44(H) 0 - 40 U/L [facility] GLOBULIN 3.6 1 - 4.8 g/dL [facility] EGFR 109 >59 mL/min/1.7 3m2 [facility] Comment:Estimated glomerular filtration rate calculated using the CKD-EPI refit equation. ANION GAP 14 10 - 20 mmol/L [facility] Blood 06/20/2024 8:23 AM EST 06/20/2024 8:33 AM EST us Shanon Casarez MD LAB BLOOD BKR ORDERABLES F inal Result [facility] [address] [place] [address] * Lipid panel (06/20/2024 8:23 AM EST) HDL 45 mg/dL [facility] Comment: Interpretation <40 mg/dL: Low HDL cholesterol (major risk factor for CHD) Greater than or equal to 60 mg/dL: High HDL cholesterol ( negative risk factor for CHD) HDL - cholesterol is affected by a number of factors, e.g. smoking, excerise, hormones, sex and age. CHOLESTEROL 177 0 - 240 mg/dL [facility] TRIGLYCERIDES 87 30 - 160 mg/dL [facility] LDL 115 50 - 129 mg/dL [facility] Comment: LDL levels in terms of risk for coronary heart disease: <100 mg/dL: Optimal 100-129 mg/dL: Near or above optimal 130-159 mg/dL: Borderline high 160-189 mg/dL: High >190 mg/dL: Very High CARDIAC RISK RATIO 3.9 3.4 - 5.0 [facility] Blood 06/20/2024 8:23 AM EST 06/20/2024 8:33 AM EST us Shanon Casarez MD LAB BLOOD BKR ORDERABLES F inal Result Performing Organization Address City/State/[facility] Co de Phone Number [facility] [address], [place] [phone] from Last 3 Months or Most Recently Relevant to Health Maintenance Insurance O O [facility] HMO Care Teams Airplane Tester Relationship Specialty Start Date End Date Wily Becerra NP [address] [place] [id number] PCP - General Nurse Practitioner 09/26/22 Additional Source Comments The information contained in this document represents components of the legal health record. It is not the complete legal health record.[facility]
--- OUTSIDE RECORDS SUMMARY | 2025-07-15 08:48 | XMS_ITS | Clinical Summary ---
Author Organization [facility] it[facility] Address [address] [place] [address] Care Team Providers Care Missile Tracking Technician Name Role Phone Unavailable Primary Care Provider [...]
--- OUTSIDE RECORDS SUMMARY | 2025-07-15 08:48 | XMS_ITS | Data Portability ---
Author Organization [facility] Telehealth Patient Home Address [address] [place] [address] Assessment No assessment recorded. Plan of Treatment [...] Sheryl Colon MD, [address], [place], [address], 8 14:14:21 gastroente rologist referral 2017 018 winston Vallecillo MD, [address] [place] [address] , [place] [address], [place], [address], 8 11:51:57 Procedures None recorded. Surgeries None recorded. 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 Referral for Diverticulitis diverticulitis with abscess Referring Physician: Ludmila Shrestha, Internal Medicine, Encounter Date: 2018 Results Created Date Observation Date Name Description Value Unit Range Abnormal Flag Note LastModifiedBy Organization Detail LastModifiedTime 03/27/20 18 2018 mundo powell am Rate & Rhythm Not Available [facility] [address], [place], [address], 2018 12:08:37 03/27/20 18 2018 mundo powell am QRS Not Available [facility] [address], [place], [address], 2018 12:08:37 03/27/20 18 2018 elect rocar diogr am WA Interval Not Available [facility] [address], [place], [address], 2018 12:08:37 03/27/20 18 2018 elect rocar diogr am QRS Duration Not Available [facility] [address], [place], [address], 2018 12:08:37 03/27/20 18 2018 elect rocar diogr am QT Interval Not Available [facility] [address], [place], [address], 2018 12:08:37 Result Notes None recorded. Problems Name Problem SNOMED Code Status Onset Date Resolution Date Notes Provider Name and Address Organization Details Recorded Time Essential hypertensi on 05884059 [facility] 15:[facility]:57 Gout 22454886 Active 2017 Christine Valadez [facility] 8 15:39:08 Sleep apnea 90961747 Active 2017 Christinedebbi Valadez [facility] 8 15:39:19 Obesity 877445695 Active 2017 Christinedebbi Valadez [facility] 8 15:39:29 Hyperchole sterolemia 83098194 [facility] 2017 [facility] 8 15:39:38 Diverticul itis of colon 952286139 Active 2017 Ludmila Shrestha NP, [address] [place] [address], [address], [facility] 8 12:04:24 Steatohepa titis 504913266 Active 2017 Ludmila Shrestha NP, [address] [place] [address], [address], [facility] 8 12:22:52 Tubular adenoma 474329860 Active 2018 colon 10/2018 Ludmila Shrestha NP, [address] [place], [address], [facility] 9 08:43:02 Problem Notes None recorded. Procedures Surgical History Date Name Laterality Status Provider Name and Address Organization Details Recorded Time 11/23/19 19 colonoscopy completed Ludmila Shrestha NP, [address] [place], [address], [facility] 11/26/2018 08:43:26 Imaging Results [...] (BMI) Body height Heart rate Oxygen saturation Systolic And Diastolic Provider Name and Address Organization Details Last Updated DateTime 8 355033. 36 g 53 kg/m2 170.82 cm 105 /min 98 % 150/96 mm[Hg] Chrisitne Valadez [facility] 8 11:47:43 Social History Question Answer Notes LastModified by Organizat ion Details LastModified Time Tobacco Smoking Status Former Smoker Not Available [facility]2020 03:36:24 What Was The Date Of Your Most Recent Tobacco Screening? 2018 [id number] Information not available 06/01/2020 Sex: Unknown Functional Status None recorded. Mental Status None recorded. Family History Nothing Reported. Medical History No medical history recorded. Past Encounters Encounter ID Performer Location Encounter Start Date Encounter Closed Date Diagnosis/Indication Diagnosis SNOMED-CT Code Diagnosis ICD10 Code Diagnosis IMO Codes Diagnosis Note [id number] Xander Estrada DO [facility] [address] [facility],[place] [address] 2018 11:40:38 2018 16:40:52 Diverticulitis 682022853 K57.92 Steatotic liver disease 688134306 K76.0 Hypercholesterolemia 136 64426 E78.00 Essential hypertension 05711753 I10 increase losartan to 100mg Obesity 267640109 E66.9 Atypical chest pain 1025 61471 R07.89 Candidiasis of skin 4988 3006 B37.2 Health Concerns Section Related Observation LastModified by Organization Detai ls LastModified Time None Recorded Concern Status LastModified by Organization Details LastModified Time None Recorded Advance Directives Directive None Recorded Payers Insurance Date Sequence Insurance Name Policy Number Policy Estrada Covered Member ID Estrada Member ID Guarantor Name 10/25/[address] [place] [address] [id number] [facility] [id number] [facility] Notes Date Note Type Note Provider Name a nd Address Organization Details Recorded Time 2018 text/html ROS as noted in the [facility] Hospital f/u re: diverticulitis Has appt with [...] neck, spreading Ludmila Shrestha NP, [address] [facility], [place], [address], [facility] 2018 12:32:29
--- OUTSIDE RECORDS SUMMARY | 2025-07-15 08:48 | XMS_ITS | Clinical Summary ---
Author Organization [facility] Address [address] [place] [address] [address] [place] [address] Care Team Providers Care Client Resource Specialist Name Role Phone Unavailable Primary Care [...]
== END 2025-07-15 09:53 | disposition home or self-care (01) ==
LOC: HO.ENCR 08:31
PROVIDERS: PCP Nurse Practitioner Family; Visit Provider Dietitian, Registered
DX: E66.01 Morbid (severe) obesity due to excess calories (principal)

== ENCOUNTER → 2025-07-15 08:31 | Outpatient (BNVA) | payer OTHER, SELFPAY | PROVIDERS: PCP Nurse Practitioner Family; Visit Provider Dietitian, Registered | DX: E66.01 Morbid (severe) obesity due to excess calories (principal); Z68.42 Body mass index [BMI] 45.0-49.9, adult; Z71.3 Dietary counseling and surveillance | CPT/HCPCS: 97803 ==